=== PATIENT | male | born 1935 | race Caucasian/White ===

== ENCOUNTER 2016-03-30 11:38 | Emergency (ER) | payer OTHER, MEDICARE ==
[~2016-03-30] VITALS: Ht 180.3 cm; Wt 70.3 kg
[~2016-03-30 11:38] MED LIST: CALC-80; CPR250T; CYCL10TA9; DICL100G20; ENLP10T; GBPN300C; MISO200T; MULT-418; POTA99TA7; PSYL0.525; SAW160CA9; TMSL.4C; TOLTA4; TRAM-21 PO; VITA1200
[2016-03-30] MEDS ORDERED: NS IV 1000 ML 1,000 ML IV ONE ×2 (12:35→15:04)
[2016-03-30] MEDS ORDERED: KETOROLAC 30 MG/ML VIAL IVP STA (12:35)
[2016-03-30] MEDS ORDERED: ONDANSETRON 4 MG/2 ML (SDV) Z0FRAN IVP ONE (12:45)
[2016-03-30 12:47] LABS: BASOPHILS % (AUTO) 0 % (0-10); EOSINOPHILS % (AUTO) 0 % (0-10); LYMPHOCYTES # (AUTO) 0.5 X 10^3 (1.0-4.0); LYMPHOCYTES % (AUTO) 7 % (12-44); MEAN CORPUSCULAR HEMOGLOBIN 34 PG (25-34); MEAN CORPUSCULAR HGB CONC 35 G/DL (32-36); MEAN CORPUSCULAR VOLUME 98 FL (80-99); MEAN PLATELET VOLUME 10.1 FL (7.4-10.4); MONOCYTES # (AUTO) 1.3 X 10^3 (0.0-1.0); MONOCYTES % (AUTO) 18 % (0-12); NEUTROPHILS # (AUTO) 5.3 X 10^3 (1.8-7.8); NEUTROPHILS % (AUTO) 75 % (42-75); PLATELET COUNT 225 10^3/uL (130-400); RED BLOOD COUNT 5.17 10^6/uL (4.35-5.85); RED CELL DISTRIBUTION WIDTH 13.8 % (10.0-14.5); WHITE BLOOD COUNT 7.1 10^3/uL (4.3-11.0)
[2016-03-30 13:11] LABS: BAND NEUTROPHILS 23 %; BASOPHILS % (MANUAL) 0 %; EOSINOPHILS % (MANUAL) 0 %; LYMPHOCYTES % (MANUAL) 7 %; NEUTROPHILS % (MANUAL) 57 %
[2016-03-30] MEDS ORDERED: VANCOMYCIN IV ADD-VANTAGE 1,000 MG in SODIUM CHLORIDE (ADD-VANTAGE) 250 ML IV ONE (13:15)
[2016-03-30 13:19] LABS: BILIRUBIN,TOTAL 0.6 MG/DL (0.1-1.0); CALCIUM 8.9 MG/DL (8.5-10.1); CREATININE SERUM 2.93 MG/DL (0.60-1.30); POTASSIUM 4.7 MMOL/L (3.6-5.0); TOTAL PROTEIN 7.3 G/DL (6.4-8.2)
--- NOTE | 2016-03-30 13:37 | Diagnostic Imaging Report ---
INDICATION: Right third finger pain after slamming finger in a truck door two weeks ago. DISCUSSION: AP view of the right hand and two coned-down views of the right third finger were obtained, no comparison. There is diffuse soft tissue swelling of the right third finger, particularly around the PIP joint. Bones are diffusely osteopenic. No acute fracture or dislocation. No radiopaque foreign body. Advanced degenerative changes are noted within the triscaphe region. 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 IMPRESSION: 1. Diffuse soft tissue swelling of the right third finger. No acute fracture identified. Dictated by: Dictated on workstation # [id number]
--- NOTE | 2016-03-30 14:14 | ED General ---
General Chief Complaint: Skin/Wound Problems Stated Complaint: RIGHT MIDDLE FINGER INJURY Nursing Triage Note: PT SENT OVER FROM URGENT CARE WITH C/O WOUND THAT IS NOT HEALING. PT HAS HX OF GANGRENE WITH AMPUTATION OF LEG. 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 Patient reports slamming the finger in a truck door a couple of weeks ago. Was seen at on 03/26/16 and placed on keflex. Patient reports no improvement in symptoms. Continued pain, erythema, and drainage. Timing/Duration: Getting Worse, Other (1-2 wks.) Modifying Factors: worse with Movement Allergies and Home Medications Allergies Uncoded Allergies: SULFA (Allergy, 10/02/10) Home Medications Calcium Carbonate/Vitamin D3 1 Each Tablet (Reported) Ciprofloxacin Hcl 250 Mg Tablet (Reported) Clindamycin HCl 300 Mg Capsule #40 300 MG PO QID Prescribed by: ROHITH WIGGINS on 03/30/16 1630 Cyclobenzaprine Hcl 10 Mg Tablet TID (Reported) Diclofenac Sodium 100 Gm Gel..gm. (Reported) Enalapril Maleate 10 Mg Tab DAILY (Reported) Gabapentin 300 Mg Cap TID (Reported) Misoprostol 200 Mcg Tablet BID (Reported) Multivitamin 1 Each Tab.chew (Reported) Potassium 99 Mg Tablet (Reported) Psyllium Husk 0.52 Gm Capsule (Reported) Saw Townsend Xtr/Zinc Picolin 1 Each Capsule (Reported) Tamsulosin Hcl 0.4 Mg Cap (Reported) Tolterodine Tartrate 4 Mg Cap.sr.24h (Reported) Tramadol Hcl 50 Mg Tablet #30 50 MG PO QID Prescribed by: MANUEL CURTIS on 08/07/09 1123 Tramadol Hcl 50 Mg Tablet #30 50 MG PO QID Prescribed by: MANUEL CURTIS on 10/02/10 1731 Vitamin B Complex/Vit B12 1,200 Mcg/1 Ml Drops (Reported) Constitutional: No chills, No dizziness, No fever, malaise Respiratory: no symptoms reported Cardiovascular: no symptoms reported Gastrointestinal: no symptoms reported Musculoskeletal: see HPI joint pain (rt middle finger.) joint swelling (rt middle finger) Skin: see HPI change in color Psychiatric/Neurological: Denies Numbness, Denies Paresthesia, Denies Tingling , Denies Weakness All Other Systems Reviewed Negative Unless Noted: Yes (Negative excepted noted.) Past Ndixtsg-Yzvsfq-Gokist Hx Patient Social History Alcohol Use: Denies Use Recreational Drug Use: No Smoking Status: Unknown if Ever Smoked Recent Foreign Travel: No Contact w/Someone Who Travel: No Recent Infectious Disease Expo: No Recent Hopitalizations: No Physical Abuse Screen: No Sexual Abuse: No Seasonal Allergies Seasonal Allergies: No Surgeries HX Surgeries: Yes Surgeries: Amputation Respiratory Hx Respiratory Disorders: No Cardiovascular Hx Cardiac Disorders: Yes Cardiac Disorders: Hypertension Neurological Hx Neurological Disorders: No Genitourinary Hx Genitourinary Disorders: Yes Genitourinary Disorders: UTI-Chronic Gastrointestinal Hx Gastrointestinal Disorders: Yes (CELIAC DISEASE) Musculoskeletal Hx Musculoskeletal Disorders: Yes Musculoskeletal Disorders: Amputee Endocrine Hx Endocrine Disorders: No HEENT HX ENT Disorders: No Cancer Hx Cancer: No Psychosocial Hx Psychiatric Problems: No Reviewed Nursing Assessment Reviewed/Agree w Nursing PMH: Yes Family Medical History Significant Family History: No Pertinent Family Hx Physical Exam Vital Signs Capillary Refill : Less Than 3 Seconds General Appearance: No Apparent Distress Chronically ill Thin Respiratory: Lungs Clear Normal Breath Sounds No Respiratory Distress Cardiovascular: No Murmur Normal Peripheral Pulses Tachycardia Extremity: Normal Capillary Refill Swelling (rt middle finger) Other (erythema , warmth and swelling of the rt middle finger w/o active bleeding. Minimal serous drainage noted. ) Neurologic/Psychiatric: Alert Oriented x3 No Motor/Sensory Deficits Normal Mood/Affect Skin: Warm/DryNo Cool, No Cyanosis, ErythemaNo Mottled, No Petechia, Other ( erythema, warmth and swelling of the rt middle finger w/o active bleeding. Minimal serous drainage noted. ) Progress/Results/Core Measures Results/Orders Lab Results My Orders Medications Given in ED Vital Signs/I&O Blood Pressure Mean: 97 Departure Communication Progress Notes 1500 Patient case discussed with Dr. Curtis including history, VS, labs, diagnostic findings, and exam. Dr. Curtis feels that the elevated Creat/BUN is related to dehydration and the elevated lactic acid is secondary to the elevated renal function. Dr. Curtis recommends 1 additional liter of NS infused followed by [facility] to home with oral antibiotics. Recommends follow-up as an outpatient with his primary care physician for repeat labs/renal function testing. 1505 all laboratory findings, diagnostic study findings, and recommendations by Dr. Manuel Crutis discussed with the patient. Patient voices understanding and agrees with the treatment plan. Patient case discussed with Dr. Velazquez, he agrees with the plan of care. Impression Impression: Primary Impression: Cellulitis of finger of right hand Additional Impressions: Acute renal insufficiency Drug-induced nausea and vomiting Disposition: HOME, SELF-CARE Condition: Improved Departure-Patient Inst. Decision time for Depature: 15:23 Referrals: NO,LOCAL PHYSICIAN (PCP/Family) Primary Care Physician Patient Instructions: Cellulitis (Skin Infection), Adult (DC), Renal Function Panel Add. Discharge Instructions: All discharge instructions reviewed with patient and/or family. Voiced understanding. Medications as instructed. STOP THE KEFLEX IMMEDIATELY. Continue usual home medications. Tylenol gfdv-sdc-fcaqeis as directed for pain. No ibuprofen or Aleve. Shower with antibacterial soap. Follow-up with Dr. barfield Tuesday as previously scheduled. Repeat labs as an outpatient or Tuesday. Follow-up with Dr. barfield for these results. Return to the emergency department for fever, increased drainage, increased redness, vomiting, dizziness , diarrhea, or any other concerns. Scripts Clindamycin HCl (Cleocin HCl)300 Mg [id number] Mg PO QID #40 CAP Ref 0 Prov:ROHITH WIGGINS 03/30/16 ROHITH WIGGINS Mar 30, 2016 14:14 Rate 21 Glucose Level 167 H 70-105 MG/DL Hematocrit 51 40-54 % Hemoglobin 17.5 13.3-17.7 G/DL Lactic Acid Level 2.1 *H 1.1 0.5-2.0 MMOL/L Lymphocytes # (Auto) 0.5 L 1.0-4.0 X 10^3 Lymphocytes % (Manual) 7 % Lymphocytes (%) (Auto) 7 L 12-44 % Mean Corpuscular Hemoglobin 34 25-34 PG Mean Corpuscular Hemoglobin Concent 35 32-36 G/DL Mean Corpuscular Volume 98 80-99 FL Mean Platelet Volume 10.1 7.4-10.4 FL Monocytes # (Auto) 1.3 H 0.0-1.0 X 10^3 Monocytes % (Manual) 13 % Monocytes (%) (Auto) 18 H 0-12 % Neutrophils # (Auto) 5.3 1.8-7.8 X 10^3 Neutrophils % (Manual) 57 % Neutrophils (%) (Auto) 75 42-75 % Platelet Count 225 130-400 10^3/uL Potassium Level 4.7 3.6-5.0 MMOL/L Red Blood Count 5.17 4.35-5.85 10^6/uL Red Cell Distribution Width 13.8 10.0-14.5 % Sodium Level 141 135-145 MMOL/L Total Bilirubin 0.6 0.1-1.0 MG/DL Total Protein 7.3 6.4-8.2 G/DL White Blood Count 7.1 4.3-11.0 10^3/uL My Orders Orders-ROHITH WIGGINS Saline Lock/Iv-Start (03/30/16 12:35) Cbc With Automated Diff (03/30/16 12:35) Comprehensive Metabolic Panel (03/30/16 12:35) Lactic Acid Analyzer (03/30/16 12:35) Blood Culture (03/30/16 12:35) Wound Culture (03/30/16 12:35) Ketorolac Injection (Toradol Injection) (03/30/16 12:35) Ondansetron Injection (Zofran Injectio (03/30/16 12:45) Saline Lock/Iv-Start (03/30/16 12:35) Ns Iv 1000 Ml (Sodium Chloride 0.9%) (03/30/16 12:35) Finger(S) (03/30/16 12:35) Manual Differential (03/30/16 12:33) Vancomycin Iv Add-[place]inburgh (Vancomycin Iv (03/30/16 13:15) Ns Iv 1000 Ml (Sodium Chloride 0.9%) (03/30/16 15:04) Medications Given in ED Current Medications Medications Dose Ordered Sig/Shazia Route Start Time Stop Time Status Last Admin Dose Admin Ondansetron HCl 4 mg 4 mg ONCE ONCE IVP 03/30/16 12:45 03/30/16 12:46 DC 03/30/16 13:06 4 MG Sodium Chloride 1,000 ml @ 0 mls/hr Q0M ONCE IV 03/30/16 12:35 03/30/16 12:37 DC 03/30/16 13:06 0 MLS/HR Sodium Chloride 1,000 ml @ 0 mls/hr Q0M ONCE IV 03/30/16 15:04 03/30/16 15:05 DC 03/30/16 15:15 0 MLS/HR Vancomycin HCl 1000 mg/Sodium Chloride 250 ml @ 250 mls/hr ONCE ONCE IV 03/30/16 13:15 03/30/16 14:14 DC 03/30/16 13:47 250 MLS/HR Vital Signs/I&O Vital Sign - Last 12Hours 03/30/16 12:22 Temp 99.0 Pulse 112 Resp 20 B/P 122/85 Pulse Ox 97 O2 Delivery Room Air Blood Pressure Mean: 97 Departure Communication Progress Notes 1500 Patient case discussed with Dr. Curtis including history, VS, labs, and exam. Dr. Curtis recommends 1 additional liter of NS followed by [facility] to home with oral antibiotics. Impression Impression: Primary Impression: Cellulitis of finger of right hand Additional Impressions: Acute renal insufficiency Drug-induced nausea and vomiting Disposition: HOME, SELF-CARE Condition: Improved Departure-Patient Inst. Decision time for Depature: 15:23 Referrals: NO,LOCAL PHYSICIAN (PCP/Family) Primary Care Physician Patient Instructions: Cellulitis (Skin Infection), Adult (DC), Renal Function Panel Add. Discharge Instructions: All discharge instructions reviewed with patient and/or family. Voiced understanding. Medications as instructed. STOP THE KEFLEX IMMEDIATELY. Continue usual home medications. Tylenol xjwa-ite-aamhubn as directed for pain. No ibuprofen or Aleve. Shower with antibacterial soap. Follow-up with Dr. barfield Tuesday as previously scheduled. Repeat labs as an outpatient or Tuesday. Follow-up with Dr. barfield for these results. Return to the emergency department for fever, increased drainage, increased redness, vomiting, dizziness , diarrhea, or any other concerns. Scripts Clindamycin HCl (Cleocin HCl)300 Mg [id number] Mg PO QID #40 CAP Ref 0 Prov:ROHITH WIGGINS 03/30/16 ROHITH WIGGINS Mar 30, 2016 14:14
[2016-03-30] MEDS ORDERED: CLIN300C3 PO ×2 (15:30→16:30)
[2016-03-30 16:23] VITALS: BP 130/76
== END 2016-03-30 16:23 | disposition home or self-care (01) ==
LOC: EDUNIT# 11:38 → ER 11:44
DX: L03.011 Cellulitis of right finger (principal); R11.2 Nausea with vomiting, unspecified; T36.1X5A Adverse effect of cephalosporins and other beta-lactam antibiotics, initial encounter; N28.9 Disorder of kidney and ureter, unspecified; I10 Essential (primary) hypertension; Z79.899 Other long term (current) drug therapy
CPT/HCPCS: 36415; 73140; 80053; 83605; 85007; 85027; 87040; 87070; 87205; 96361; 96365; 96375

== ENCOUNTER 2017-03-21 08:35 | Inpatient (IN) | payer MEDICARE, OTHER ==
[~2017-03-21] VITALS: Ht 175.3 cm; Wt 64.0 kg
[~2017-03-21 08:35] MED LIST changes: +CLIN300C3 PO
--- OUTSIDE RECORDS SUMMARY | 2017-03-21 08:39 | XMS REPORT ---
Author Author BIGG GAYLE [facility] Address [address] [place] [address] Care Team Providers Care Frozen Food Department Manager Name Role Phone BIGG GAYLE Unavailable PROBLEMS Type Condition ICD9-CM Code [id number] Code Onset Dates Condition Status SNOMED Code Problem Cognitive complaints R41.9 Active 659132474 Problem Dental examination Z01.20 Active 151685829 ALLERGIES Unknown Allergies SOCIAL HISTORY No smoking Hx information available PLAN OF CARE VITAL SIGNS MEDICATIONS Unknown Medications RESULTS No Results PROCEDURES No Known procedures IMMUNIZATIONS No Known Immunizations
--- OUTSIDE RECORDS SUMMARY | 2017-03-21 08:39 | XMS REPORT ---
Author Author BIGG GAYLE Organization [facility] Address [address] [place] [address] Care Team Providers Care Statuary Painter Name Role Phone BIGG GAYLE Unavailable PROBLEMS Type Condition ICD9-CM Code [id number] Code Onset Dates Condition Status SNOMED Code Problem Cognitive complaints R41.9 Active 277884934 Problem Dental examination Z01.20 Active [id number] ALLERGIES Unknown Allergies SOCIAL HISTORY No smoking Hx information available PLAN OF CARE Activity Details Follow Up next available Reason:review cognitive test results VITAL SIGNS MEDICATIONS Unknown Medications RESULTS No Results PROCEDURES Procedure Date Ordered Related Diagnosis Body Site 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
--- OUTSIDE RECORDS SUMMARY | 2017-03-21 08:39 | XMS REPORT ---
Author Author BIGG GAYLE [facility] Address [address] [place] [address] Care Team Providers Care Day Care Assistant Name Role Phone BIGG GAYLE Unavailable PROBLEMS Type Condition ICD9-CM Code [id number] Code Onset Dates Condition Status SNOMED Code Problem Cognitive complaints R41.9 Active 142156117 Problem Dental examination Z01.20 Active 930296625 ALLERGIES Unknown Allergies SOCIAL HISTORY No smoking Hx information available PLAN OF CARE Activity Details Follow Up after DRS-2 administration Reason: VITAL SIGNS MEDICATIONS Unknown Medications RESULTS No Results PROCEDURES Procedure Date Ordered Related Diagnosis Body Site [facility] VISIT MENTAL HEALTH NEW PT Mar 01, 2016 Psychotherapy, patient &/family, 30 minutes, new patient Mar 01, 2016 IMMUNIZATIONS No Known Immunizations
--- OUTSIDE RECORDS SUMMARY | 2017-03-21 08:39 | XMS REPORT ---
Author Author BIGG GAYLE [facility] Address [address] [place] [address] Care Team Providers Care Hogshead Roller Name Role Phone BIGG GAYLE Unavailable PROBLEMS Type Condition ICD9-CM Code TPP63-SO Code Onset Dates Condition Status SNOMED Code Problem Cognitive complaints R41.9 Active 821258979 Problem Dental examination Z01.20 Active 904516821 ALLERGIES Unknown Allergies SOCIAL HISTORY No smoking Hx information available PLAN OF CARE VITAL SIGNS MEDICATIONS Unknown Medications RESULTS No Results PROCEDURES Procedure Date Ordered Related Diagnosis Body Site [facility] VISIT MENTAL HEALTH ESTAB PT Mar 11, 2016 Psychotherapy, patient &/family, 30 minutes, established patient Mar 11, 2016 IMMUNIZATIONS No Known Immunizations
--- OUTSIDE RECORDS SUMMARY | 2017-03-21 08:40 | XMS REPORT ---
Author Author STACEY MCFADDEN Organization [facility] Address [address] [place] [address] Care Team Providers Care Grinding Wheel Inspector Name Role Phone STACEY MCFADDEN Unavailable PROBLEMS Type Condition ICD9-CM Code XEY05-OS Code Onset Dates Condition Status SNOMED Code Problem Cognitive complaints R41.9 Active 531002879 Problem Dental examination Z01.20 Active 947021035 ALLERGIES Substance Reaction Event Type Date Status Sulfacetamide Sodium Unknown Drug Allergy Feb, Active SOCIAL HISTORY No smoking Hx information available PLAN OF CARE Activity Details Follow Up 6 Months Reason:recall VITAL SIGNS Blood pressure systolic 186 mmHg 2016-03-04 Blood pressure diastolic 102 mmHg 2016-03-04 MEDICATIONS Medication Instructions Dosage Frequency Start Date End Date Duration Status Tamsulosin HCl 0.4 MG Active Systane Nighttime - Active Aspir-81 81 MG Orally Once a day 1 tablet 24h Active Enalapril Maleate 10 MG Orally Once a day 1 tablet 24h Active Misoprostol 200 MCG Orally Four times a day 1 tablet with food 6h Active Diclofenac Sodium 75 MG Orally Twice a day 1 tablet with food or milk 12h Active Vit E-Vit C-Beta Carotene [phone] Orally Once a day 1 tablet 24h Active B-12 2500 MCG Active potassium 1 tab Active Restasis 0.05 % Ophthalmic Twice a day 1 null into affected eye 12h Active Multi Complete - Active Tolterodine Tartrate 2 MG Orally Twice a day 1 tablet 12h Active Mens Prostate Health Formula Active RESULTS No Results PROCEDURES Procedure Date Ordered Related Diagnosis Body Site INTRAORL-PERIAPICAL 1 FILM [id number] Mar 04, 2016 INTRAORL-PERIAPICAL EA ADD FILM Mar 04, 2016 IMMUNIZATIONS No Known Immunizations
[2017-03-21] MEDS ORDERED: LACTATED RINGERS 1,000 ML IV ONE (08:44)
[2017-03-21] MEDS ORDERED: ONDANSETRON 4 MG/2 ML (SDV) Z0FRAN IVP ONE (08:45)
[2017-03-21] MEDS ORDERED: fentaNYL INJECTION 100 MCG/2 ML AMP IVP ONE (08:45)
--- NOTE | 2017-03-21 08:54 | ED Abdominal Pain ---
General Chief Complaint: Abdominal/GI Problems Stated Complaint: NAUSEA/CONSTIPATION Source of Information: Patient, Other Exam Limitations: No Limitations History of Present Illness Time Seen By Provider: 08:43 Initial Comments Patient resists ER by EMS with a chief complaint of abdominal pain that started Tuesday evening, 3 days ago. His last bowel movement was Tuesday morning, 3 days ago. He has had poor oral intake Secondary to nausea and vomiting without bloody emesis. He denies shortness of breath or chest pain or sweats or chills or fever. He denies dysuria, Discharge or trauma. He says he's had multiple colonoscopies in the past and his last one did not find any polyps but his had polyps in the past no mention of diverticulosis on the other. He says his entire belly hurts but it starts up in the epigastric region and radiates all over. It does not radiate to the back. There is no sensation of tearing. The pain is constant and worse with movement or direct palpation of his abdomen. EMS also reports his blood pressure is up around 180 systolic but the patient has not taken his blood pressure medicines morning. Patient endorses to ventral hernia operations in the past with mesh. Allergies and Home Medications Allergies Uncoded Allergies: SULFA (Allergy, 10/02/10) Home Medications Calcium Carbonate/Vitamin D3 1 Each Tablet, (Reported) Ciprofloxacin Hcl 250 Mg Tablet, (Reported) Clindamycin HCl 300 Mg Capsule, 300 MG PO QID, #40 Ref 0 Prescribed by: ROHITH WIGGINS on 03/30/16 1630 Cyclobenzaprine Hcl 10 Mg Tablet, TID, (Reported) Diclofenac Sodium 100 Gm Gel..gm., (Reported) Enalapril Maleate 10 Mg Tab, DAILY, (Reported) Gabapentin 300 Mg Cap, TID, (Reported) Misoprostol 200 Mcg Tablet, BID, (Reported) Multivitamin 1 Each Tab.chew, (Reported) Potassium 99 Mg Tablet, (Reported) Psyllium Husk 0.52 Gm Capsule, (Reported) Saw Delta Xtr/Zinc Picolin 1 Each Capsule, (Reported) Tamsulosin Hcl 0.4 Mg Cap, (Reported) Tolterodine Tartrate 4 Mg Cap.sr.24h, (Reported) Tramadol Hcl 50 Mg Tablet, 50 MG PO QID, #30 Ref 0 Prescribed by: MANUEL CURTIS on 08/07/09 1123 Tramadol Hcl 50 Mg Tablet, 50 MG PO QID, #30 Ref 0 Prescribed by: MANUEL CURTIS on 10/02/10 1731 Vitamin B Complex/Vit B12 1,200 Mcg/1 Ml Drops, (Reported) Review of Systems Constitutional: No chills, No diaphoresis, No fever, No malaise EENTM: No Blurred Vision, No Double Vision, Nose Congestion Respiratory: Denies Cough, Denies Shortness of Air Cardiovascular: Denies Chest Pain, Denies Edema, Denies Palpitations, Denies Syncope Gastrointestinal: See HPI, Denies Abdomen Distended, Abdominal Pain, Constipated, Denies Diarrhea, Nausea, Poor Fluid Intake, Vomiting Genitourinary: Denies Burning, Denies Discharge Musculoskeletal: No back pain, No joint pain Skin: No pruritus, No rash Psychiatric/Neurological: Denies Headache, Denies Numbness Past Ozsjxua-Pdlmhj-Cdgche Hx Patient Social History Alcohol Use: Denies Use Recreational Drug Use: No Smoking Status: Never a Smoker Recent Hopitalizations: No Seasonal Allergies Seasonal Allergies: No Surgeries History of Surgeries: Yes Surgeries: Amputation Respiratory History of Respiratory Disorde: No Cardiovascular History of Cardiac Disorders: Yes Cardiac Disorders: Hypertension Neurological History of Neurological Disord: No Genitourinary Genitourinary Disorders: UTI-Chronic Gastrointestinal History of Gastrointestinal Di: Yes (CELIAC DISEASE) Musculoskeletal History of Musculoskeletal Dis: Yes Musculoskeletal Disorders: Amputee Endocrine History of Endocrine Disorders: No Cancer History of Cancer: No Psychosocial History of Psychiatric Problem: No Family Medical History Significant Family History: No Pertinent Family Hx Physical Exam Vital Signs VS - Last 72 Hours, by Label 03/21/17 08:37 Temp 98.6 Pulse 100 Resp 18 B/P (MAP) 192/100 (130) Pulse Ox 96 O2 Delivery Room Air Capillary Refill : General Appearance: mild distress, thin HEENT: PERRL/EOMI, normal ENT inspection, pharynx normal (oral mucosa is dry) Neck: supple, normal inspection Respiratory: chest non-tender, lungs clear, normal breath sounds, no respiratory distress, no accessory muscle use Cardiovascular: normal peripheral pulses, regular rate, rhythm, no edema, no JVD Peripheral Pulses: 1+ Dorsalis Pedis (R), 1+ Left Dors-Pedis (L) Gastrointestinal: normal bowel sounds, no pulsatile mass, No distended, guarding, rebound, tenderness (diffusely times all 4 quadrants), No mass Extremities: non-tender, normal inspection, no pedal edema, normal capillary refill Neurologic/Psychiatric: alert, normal mood/affect, oriented x 3 Skin: normal color, warm/dry Focused Exam Evaluation Lactate Level Laboratory Tests 03/21/17 08:46: Lactic Acid Level 1.76 Lactic Acid Level Laboratory Tests Test 03/21/17 08:46 Lactic Acid Level 1.76 MMOL/L (0.50-2.00) Progress/Results/Core Measures Results/Orders Lab Results Laboratory Tests Test 03/21/17 08:46 Range/Units White Blood Count 10.5 4.3-11.0 10^3/uL Red Blood Count 4.75 4.35-5.85 10^6/uL Hemoglobin 15.2 13.3-17.7 G/DL Hematocrit 47 40-54 % Mean Corpuscular Volume 97 80-99 FL Mean Corpuscular Hemoglobin 32 25-34 PG Mean Corpuscular Hemoglobin Concent 33 32-36 G/DL Red Cell Distribution Width 13.5 10.0-14.5 % Platelet Count 306 130-400 10^3/uL Mean Platelet Volume 8.6 7.4-10.4 FL Neutrophils (%) (Auto) 78 H 42-75 % Lymphocytes (%) (Auto) 12 12-44 % Monocytes (%) (Auto) 10 0-12 % Eosinophils (%) (Auto) 0 0-10 % Basophils (%) (Auto) 0 0-10 % Neutrophils # (Auto) 8.2 H 1.8-7.8 X 10^3 Lymphocytes # (Auto) 1.3 1.0-4.0 X 10^3 Monocytes # (Auto) 1.1 H 0.0-1.0 X 10^3 Eosinophils # (Auto) 0.0 0.0-0.3 10^3/uL Basophils # (Auto) 0.0 0.0-0.1 10^3/uL Sodium Level 139 135-145 MMOL/L Potassium Level 4.7 3.6-5.0 MMOL/L Chloride Level 99 98-107 MMOL/L Carbon Dioxide Level 26 21-32 MMOL/L Anion Gap 14 5-14 MMOL/L Blood Urea Nitrogen 45 H 7-18 MG/DL Creatinine 1.91 H 0.60-1.30 MG/DL Estimat Glomerular Filtration Rate 34 BUN/Creatinine Ratio 24 Glucose Level 168 H 70-105 MG/DL Lactic Acid Level 1.76 0.50-2.00 MMOL/L Calcium Level 9.8 8.5-10.1 MG/DL Magnesium Level 2.0 1.8-2.4 MG/DL Total Bilirubin 0.8 0.1-1.0 MG/DL Aspartate Amino Transf (AST/SGOT) 18 5-34 U/L Alanine Aminotransferase (ALT/SGPT) 17 0-55 U/L Alkaline Phosphatase 112 40-136 U/L C-Reactive Protein High Sensitivity 2.64 H 0.00-0.50 MG/DL Total Protein 7.3 6.4-8.2 GM/DL Albumin 3.7 3.2-4.5 GM/DL Lipase 53 8-78 U/L My Orders Orders - NYDIA DOSS Cbc With Automated Diff (03/21/17 08:44) Comprehensive Metabolic Panel (03/21/17 08:44) Hs C Reactive Protein (03/21/17 08:44) Lactic Acid Analyzer (03/21/17 08:44) Lipase (03/21/17 08:44) Magnesium (03/21/17 08:44) Ua Culture If Indicated (03/21/17 08:44) Saline Lock/Iv-Start (03/21/17 08:44) Lactated Ringers (Lr 1000 Ml Iv Solution (03/21/17 08:44) Fentanyl Injection (Sublimaze Injection (03/21/17 08:45) Ondansetron Injection (Zofran Injectio (03/21/17 08:45) Ct Abdomen/Pelvis Wo (03/21/17 08:44) Medications Given in ED Current Medications Medications Dose Ordered Sig/Shazia Route Start Time Stop Time Status Last Admin Dose Admin Fentanyl Citrate 50 mcg ONCE ONCE IVP 03/21/17 08:45 03/21/17 08:49 DC 03/21/17 09:04 50 MCG Lactated Ringer's 1,000 ml @ 0 mls/hr Q0M ONCE IV 03/21/17 08:44 03/21/17 08:49 DC 03/21/17 09:05 1,000 MLS/HR Ondansetron HCl 4 mg ONCE ONCE IVP 03/21/17 08:45 03/21/17 08:49 DC 03/21/17 09:03 4 MG Vital Signs/I&O Vital Sign - Last 12Hours 03/21/17 08:37 Temp 98.6 Pulse 100 Resp 18 B/P (MAP) 192/100 (130) Pulse Ox 96 O2 Delivery Room Air Progress Note #1: Time: 08:53 Progress Note Acute moderate to severe abdominal pain with a tender rigid abdomen. We'll give him pain medicine, fluids and Zofran and then get him to the scanner. Differential includes things such as a small bowel obstruction, ischemic mesentery, spontaneous bacterial peritonitis, pancreatitis, diverticulitis etc. Progress Note #2: Time: 11:25 Progress Note Patient's pain and nausea are now under control after single dose of Zofran and fentanyl. He has a small bowel obstruction on CT we'll discuss this with general surgery for admission. He probably does not need an NG tube at this time as he is asymptomatic. Diagnostic Imaging Diagonstic Imaging: CT (with contrast) Plain Films/CT/US/NM/MRI: abdomen, pelvis Comments Air-fluid levels in the bowels with dilated, distended proximal and decompressed distal bowels. No exact transition point seen probably in the ileum. Compatible with a small bowel obstruction. NAME: JOSE SARMIENTO [facility] REC#: [id number] PT STATUS: REG ER : 1935 PHYSICIAN: NYDIA DOSS MD ADMIT DATE: 03/21/17/ER Draft Date of Exam:03/21/17 CT ABDOMEN/PELVIS WO PROCEDURE: CT abdomen and pelvis without contrast. TECHNIQUE: Multiple contiguous axial images were obtained through the abdomen and pelvis without the use of intravenous contrast. INDICATION: Constipation, nausea and vomiting. COMPARISON: Comparison made with prior examination 08/07/2009. FINDINGS: The heart size is normal. The lung bases are clear. The liver is normal in size without focal lesions. Gallbladder is unremarkable. There is no biliary ductal dilatation. Spleen is normal. The pancreas and adrenal glands are grossly unremarkable. Kidneys are normal. There are markedly dilated loops of both fluid-filled and air-filled small bowel with air-fluid levels. Findings are compatible with small bowel obstruction. Bladder is grossly unremarkable. There is a small amount of free pelvic fluid. There are degenerative changes in the spine. There is moderate atherosclerotic calcification of the aorta which is nonaneurysmal. IMPRESSION: 1. Findings compatible with small bowel obstruction likely with a transition point in the mid to distal ileum. 2. Small amount of ascites. 3. Moderate atherosclerotic calcification of the aorta. 4. Degenerative changes in the spine. Dictated on workstation # [id number] Dict: 03/21/17 1110 Trans: 03/21/17 1121 [id number] Interpreted by: MYNOR RUBIO MD Electronically signed by: Reviewed: Reviewed by Me, Discussed w/Radiologist Departure Communication (Admissions) Time/Spoke to Admitting Phy: 11:34 Communication Discussed the case with Dr. Mora and she will see the patient. Time/Spoke to Consulting Phy: 11:31 Communication/Consulting Tuan discussed case lab imaging and findings and he is okay to consult on the patient. He is okay with no NG tube at this time. Impression Impression: Primary Impression: Small bowel obstruction Disposition: ADMITTED INPATIENT Condition: Stable Admissions Decision to Admit Reason: Admit from ER (General) Decision to Admit/Date: Mar 21, 2017 Time/Decision to Admit Time: 11:26 Departure-Patient Inst. Referrals: NO,LOCAL PHYSICIAN (PCP/Family) Primary Care Physician Copy Copies To 1: DONNA MARTINEZ MD Copies To 2: ANA MORA MD; CHRISTINE RYDER MD, TITUS J Mar 21, 2017 08:54
[2017-03-21 08:56] LABS: BASOPHILS % (AUTO) 0 % (0-10); EOSINOPHILS % (AUTO) 0 % (0-10); HEMOGLOBIN 15.2 G/DL (13.3-17.7); LYMPHOCYTES # (AUTO) 1.3 X 10^3 (1.0-4.0); LYMPHOCYTES % (AUTO) 12 % (12-44); MEAN CORPUSCULAR HEMOGLOBIN 32 PG (25-34); MEAN PLATELET VOLUME 8.6 FL (7.4-10.4); MONOCYTES # (AUTO) 1.1 X 10^3 (0.0-1.0); MONOCYTES % (AUTO) 10 % (0-12); NEUTROPHILS # (AUTO) 8.2 X 10^3 (1.8-7.8); NEUTROPHILS % (AUTO) 78 % (42-75); PLATELET COUNT 306 10^3/uL (130-400); RED BLOOD COUNT 4.75 10^6/uL (4.35-5.85); RED CELL DISTRIBUTION WIDTH 13.5 % (10.0-14.5); WHITE BLOOD COUNT 10.5 10^3/uL (4.3-11.0)
[2017-03-21 09:22] LABS: ALBUMIN 3.7 GM/DL (3.2-4.5); BILIRUBIN,TOTAL 0.8 MG/DL (0.1-1.0); CALCIUM 9.8 MG/DL (8.5-10.1); CREATININE SERUM 1.91 MG/DL (0.60-1.30); POTASSIUM 4.7 MMOL/L (3.6-5.0); TOTAL PROTEIN 7.3 GM/DL (6.4-8.2)
[2017-03-21 10:32] LABS: HEMATOCRIT 47 % (40-54); MEAN CORPUSCULAR HGB CONC 33 G/DL (32-36); MEAN CORPUSCULAR VOLUME 97 FL (80-99)
--- NOTE | 2017-03-21 11:21 | Diagnostic Imaging Report ---
PROCEDURE: CT abdomen and pelvis without contrast. TECHNIQUE: Multiple contiguous axial images were obtained through the abdomen and pelvis without the use of intravenous contrast. INDICATION: Constipation, nausea and vomiting. COMPARISON: Comparison made with prior examination 08/07/2009. FINDINGS: The heart size is normal. The lung bases are clear. The liver is normal in size without focal lesions. Gallbladder is unremarkable. There is no biliary ductal dilatation. Spleen is normal. The pancreas and adrenal glands are grossly unremarkable. Kidneys are normal. There are markedly dilated loops of both fluid-filled and air-filled small bowel with air-fluid levels. Findings are compatible with small bowel obstruction. Bladder is grossly unremarkable. There is a small amount of free pelvic fluid. There are degenerative changes in the spine. There is moderate atherosclerotic calcification of the aorta which is nonaneurysmal. IMPRESSION: 1. Findings compatible with small bowel obstruction likely with a transition point in the mid to distal ileum. 2. Small amount of ascites. 3. Moderate atherosclerotic calcification of the aorta. 4. Degenerative changes in the spine. Dictated by: Dictated on workstation # [id number]
[2017-03-21] MEDS ORDERED: NS IV 1000 ML 1,000 ML ONE (12:23)
[2017-03-21 12:25] VITALS: BP 156/83
[2017-03-21] MEDS: NS IV 1000 ML 1,000 ML IV SCH ×2 (12:42→19:20)
[2017-03-21] MEDS ORDERED: TOLT2TAB5 PO (13:20)
[2017-03-21] MEDS ORDERED: TAMS0.4C2 PO (13:20)
[2017-03-21] MEDS ORDERED: CYCL1DRO OU (13:20)
[2017-03-21] MEDS ORDERED: ENALAPRILAT 2.5 MG/2 ML (VASOTEC) VIAL IV PRN (13:30)
[2017-03-21] MEDS ORDERED: MISO200T4 PO (13:44)
[2017-03-21] MEDS ORDERED: SAW450CA7 PO (13:44)
[2017-03-21] MEDS ORDERED: MULT1TAB80 PO (13:44)
[2017-03-21] MEDS ORDERED: ASPI-983 PO (13:44)
[2017-03-21] MEDS ORDERED: POTA99TA21 PO (13:44)
[2017-03-21] MEDS ORDERED: POLY17PO6 PO (13:44)
[2017-03-21] MEDS ORDERED: MINE3.5O4 OU ×2 (13:44)
[2017-03-21] MEDS ORDERED: CYAN25003 SL (13:44)
[2017-03-21] MEDS ORDERED: DICL75TA2 PO (13:44)
[2017-03-21] MEDS ORDERED: CARB10DR2 OU (13:44)
[2017-03-21] MEDS ORDERED: ENAL10TA PO (13:44)
[2017-03-21] MEDS ORDERED: MULT-35 PO (13:44)
[2017-03-21] MEDS: fentaNYL INJECTION 100 MCG/2 ML AMP IV PRN ×2 (14:34→16:59)
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
--- NOTE | 2017-03-21 14:52 | Consultation ---
History of Present Illness History of Present Illness Patient Consulted On(beau/time) 03/21/17 14:45 Date Seen by Provider: Mar 21, 2017 Time Seen by Provider: 13:05 Reason for Visit: colicky central abdominal pain over a 4 day period History of Present Illness Insidious onset of central abdominal, colicky pain followed by obstipation over a four-day period. Evaluation in the emergency room is indicated EF distal small bowel obstruction. Allergies and Home Medications Allergies Coded Allergies: cephalexin (Verified Allergy, Severe, NAUSEA/DIARRHEA, 03/21/17) clindamycin (Verified Allergy, Severe, NAUSEA/DIARRHEA, 03/21/17) Uncoded Allergies: SULFA (Allergy, Severe, 03/21/17) Home Medications Aspirin 81 Mg Tablet.dr, 81 MG PO DAILY, (Reported) Carboxymethylcellulos/Glycerin 10 Ml Drops.gel, 1 DROP OU BID PRN for DRY EYES, (Reported) Cyanocobalamin (Vitamin B-12) 2,500 Mcg Tab.subl, 2,500 MCG SL DAILY, (Reported) Cyclosporine 1 Each Droperette, 1 DROP OU BID, (Reported) Diclofenac Sodium 75 Mg Tablet.dr, 75 MG PO DAILY, (Reported) Enalapril Maleate 10 Mg Tablet, 20 MG PO DAILY, (Reported) LAST FILLED #180 08-11-17 TAKES 2 (10MG) TABLETS Mineral Oil/Petrolatum,White 3.5 Gm Oint...g., OU HS, (Reported) Misoprostol 200 Mcg Tablet, 100 MCG PO DAILY, (Reported) TAKES 1/2 (200MCG) TABLET Multivitamin 1 Each Tablet, 1 TAB PO DAILY, (Reported) Polyethylene Glycol 3350 17 Gm Powd.pack, 17 GM PO DAILY PRN for CONSTIPATION- 2ND LINE, (Reported) Potassium Gluconate 99 Mg Tablet, 99 MG PO DAILY PRN for CRAMPS, (Reported) Saw [place] Fruit 450 Mg Capsule, 450 MG PO DAILY, (Reported) Tamsulosin HCl 0.4 Mg Cap.er.24h, 0.4 MG PO 1730, (Reported) LAST FILLED #30 17 Tolterodine Tartrate 2 Mg Tablet, 2 MG PO DAILY, (Reported) Vit A,C & E/Lutein/Minerals 1 Each Tablet, 1 TAB PO DAILY, (Reported) Past Xaqxoce-Jjmsqn-Kbqpfg Hx Patient Social History Alcohol Use: Denies Use Recreational Drug Use: No Smoking Status: Never a Smoker Recent Foreign Travel: No Contact w/Someone Who Travel: No Recent Infectious Disease Expo: No Recent Hopitalizations: No Seasonal Allergies Seasonal Allergies: No Surgeries History of Surgeries: Yes Surgeries: Amputation Respiratory History of Respiratory Disorde: Yes Respiratory Disorders: Pneumonia Cardiovascular History of Cardiac Disorders: Yes Cardiac Disorders: Hypertension Neurological History of Neurological Disord: No Genitourinary Genitourinary Disorders: UTI-Chronic Gastrointestinal History of Gastrointestinal Di: Yes (CELIAC DISEASE) Gastrointestinal Disorders: Chronic Constipation, Polyps Musculoskeletal History of Musculoskeletal Dis: Yes Musculoskeletal Disorders: Amputee, Arthritis Endocrine History of Endocrine Disorders: No HEENT History of HEENT Disorders: Yes Loss of Vision: Denies Hearing Impairment: Denies Cancer History of Cancer: No Psychosocial History of Psychiatric Problem: No Blood Transfusions History of Blood Disorders: No Adverse Reaction to a Blood Tr: No Family Medical History Significant Family History: No Pertinent Family Hx Review of Systems-General Constitutional: no symptoms reported Respiratory: no symptoms reported Cardiovascular: no symptoms reported Gastrointestinal: see HPI Genitourinary: no symptoms reported Musculoskeletal: no symptoms reported Skin: no symptoms reported Psychiatric/Neurological: No Symptoms Reported Physical Exam-General Problems Physical Exam Vital Signs Vital Sign - Last 12Hours 03/21/17 08:37 Temp 98.6 Pulse 100 Resp 18 B/P (MAP) 192/100 (130) Pulse Ox 96 O2 Delivery Room Air Capillary Refill : Less Than 3 Seconds General Appearance: mild distress HEENT: normal ENT inspection Neck: normal inspection Respiratory: lungs clear Cardiovascular: regular rate, rhythm Gastrointestinal: soft, distended, other Rectal: deferred Back: normal inspection Neurologic/Psychiatric: alert, oriented x 3 Skin: warm/dry Comments Abdomen slightly distended with minimal tenderness. No obvious external hernia. No recurrence of inguinal hernia. Evidence of left below the knee amputation with prosthetic in place. Assessment/Plan Assessment/Plan Admission Diagnosis/Plan Gentleman with features of small bowel obstruction. Exact etiology unknown. Differential diagnosis would include adhesion of the small bowel to the area of preperitoneal hernia repair versus neoplastic etiology. At this point, it is reasonable to manage conservatively, using a nasogastric decompression and close observation. If on resolved, a water-soluble contrast study would be obtained for further evaluation. Clinical Quality Measures DVT/VTE Risk/Contraindication: Risk Factor Score Per Nursin RFS Level Per Nursing on Admit: 2=Moderate CHRISTINE RYDER MD Mar 21, 2017 14:52
[2017-03-21 15:55] VITALS: BP 138/81
[2017-03-21] MEDS ORDERED: CATHETER FLUSH 10 ML SYR IV PRN (16:30)
--- NOTE | 2017-03-21 17:07 | Diagnostic Imaging Report ---
INDICATION: NG tube placement. FINDINGS: A catheter is in the stomach. IMPRESSION: Catheter in the stomach. Dictated by: Dictated on workstation # [id number]
[2017-03-21] MEDS ORDERED: meTOprolol 5 MG/5 ML (LOPRESSOR) VIAL IV SCH (18:00)
[2017-03-21 19:20] VITALS: BP 145/83
[2017-03-21] MEDS ORDERED: INFLUENZA TRIvalent 2017-2018 0.5 ML/45 MCG SYR IM ONE (19:45)
[2017-03-21] MEDS: ONDANSETRON 4 MG/2 ML (SDV) Z0FRAN IV PRN (19:59)
[2017-03-22] VITALS (7 sets, daily range): BP systolic 146–186; BP diastolic 72–81
[2017-03-22] MEDS: meTOprolol 5 MG/5 ML (LOPRESSOR) VIAL IV PRN ×2 (00:15→07:30)
[2017-03-22] MEDS: NS IV 1000 ML 1,000 ML IV SCH ×2 (02:03→08:44)
[2017-03-22] MEDS: fentaNYL INJECTION 100 MCG/2 ML AMP IV PRN ×6 (05:14→21:57)
[2017-03-22 07:15] LABS: BASOPHILS % (AUTO) 0 % (0-10); EOSINOPHILS # (AUTO) 0.1 10^3/uL (0.0-0.3); EOSINOPHILS % (AUTO) 1 % (0-10); HEMATOCRIT 37 % (40-54); HEMOGLOBIN 12.8 G/DL (13.3-17.7); LYMPHOCYTES % (AUTO) 14 % (12-44); MEAN CORPUSCULAR HEMOGLOBIN 33 PG (25-34); MEAN CORPUSCULAR HGB CONC 34 G/DL (32-36); MEAN CORPUSCULAR VOLUME 95 FL (80-99); MEAN PLATELET VOLUME 9.5 FL (7.4-10.4); MONOCYTES % (AUTO) 13 % (0-12); NEUTROPHILS # (AUTO) 5.4 X 10^3 (1.8-7.8); NEUTROPHILS % (AUTO) 72 % (42-75); PLATELET COUNT 220 10^3/uL (130-400); RED BLOOD COUNT 3.91 10^6/uL (4.35-5.85); RED CELL DISTRIBUTION WIDTH 13.7 % (10.0-14.5); WHITE BLOOD COUNT 7.4 10^3/uL (4.3-11.0)
[2017-03-22 07:35] LABS: CALCIUM 8.5 MG/DL (8.5-10.1); CREATININE SERUM 1.46 MG/DL (0.60-1.30); MAGNESIUM 1.6 MG/DL (1.8-2.4); POTASSIUM 4.2 MMOL/L (3.6-5.0)
[2017-03-22] MEDS: NITROGLYCERIN 2% OINT 1 GM UNIT DOSE PACKET TOP PRN ×2 (10:48→19:45)
--- NOTE | 2017-03-22 11:56 | Progress Note (SOAP) ---
Subjective Date Seen by Provider: Mar 22, 2017 Time Seen by Provider: 11:54 Subjective/Events-last exam abdominal pain continues, to a lesser degree. No nausea. Dark effluent from the NG tube. Has not passed flatus Review of Systems General: No Chills, No Night Sweats, No Fatigue, No Malaise HEENT: No Head Aches, No Eye Pain, No Ear Pain, No Dysphasia, No Sinus Congestion, No Post Nasal Drip, No Sore Throat Pulmonary: No Dyspnea, No Cough, No Pleuritic Chest Pain Cardiovascular: No: Chest Pain, Palpitations, Orthopnea, Paroxysmal Noc. Dyspnea, Edema, Lt Headedness Gastrointestinal: Abdominal Pain, Constipation Genitourinary: No Dysuria, No Frequency, No Incontinence, No Hematuria, No Retention Musculoskeletal: No: other, neck pain, shoulder pain, arm pain, back pain, hand pain, leg pain, foot pain Neurological: No: Weakness, Numbness, Incoordination, Change in speech, Confusion, Seizures, Other Objective Exam Vital Signs Date Time Temp Pulse Resp B/P (MAP) Pulse Ox O2 Delivery O2 Flow Rate FiO2 03/22/17 09:00 Room Air 03/22/17 07:59 97.7 82 22 170/79 (109) 95 Room Air 03/22/17 07:00 103 03/22/17 04:00 98.4 90 18 172/80 (110) 93 Room Air 03/22/17 01:00 80 03/22/17 00:00 98.7 91 18 146/73 (97) 93 Room Air 03/21/17 20:00 Room Air 03/21/17 19:20 97.2 97 20 145/83 (103) 97 Room Air 03/21/17 15:55 98.3 100 18 138/81 (100) 95 Room Air 03/21/17 12:46 95 Room Air 03/21/17 12:25 98.1 90 20 156/83 (107) 98 Room Air 03/21/17 12:14 98 03/21/17 12:10 92 18 98 Room Air I & O 03/22/17 07:00 Intake Total 1000 ml Output Total 1800 ml Balance -800 ml Capillary Refill : Less Than 3 Seconds General Appearance: No Apparent Distress HEENT: Normal ENT Inspection (S was noted) Neck: Normal Inspection Respiratory: Lungs Clear Cardiovascular: Regular Rate, Rhythm Gastrointestinal: soft (saw) Skin: Warm/Dry Other comments mild abdominal tenderness. No evidence of peritonitis. Results Lab Laboratory Tests 03/22/17 07:00: White Blood Count 7.4, Red Blood Count 3.91L, Hemoglobin 12.8L, Hematocrit 37L, Mean Corpuscular Volume 95, Mean Corpuscular Hemoglobin 33, Mean Corpuscular Hemoglobin Concent 34, Red Cell Distribution Width 13.7, Platelet Count 220, Mean Platelet Volume 9.5, Neutrophils (%) (Auto) 72, Lymphocytes (%) (Auto) 14, Monocytes (%) (Auto) 13H, Eosinophils (%) (Auto) 1, Basophils (%) (Auto) 0, Neutrophils # (Auto) 5.4, Lymphocytes # (Auto) 1.0, Monocytes # (Auto) 1.0, Eosinophils # (Auto) 0.1, Basophils # (Auto) 0.0, Sodium Level 143, Potassium Level 4.2, Chloride Level 107, Carbon Dioxide Level 27, Anion Gap 9, Blood Urea Nitrogen 40H, Creatinine 1.46H, Estimat Glomerular Filtration Rate 46, BUN/ Creatinine Ratio 27, Glucose Level 84, Calcium Level 8.5, Magnesium Level 1.6L Assessment/Plan Assessment/Plan Assess & Plan/Chief Complaint Gentleman with features of small bowel obstruction. Exact etiology unknown. Differential diagnosis would include adhesion of the small bowel to the area of preperitoneal hernia repair versus neoplastic etiology. At this point, it is reasonable to manage conservatively, using a nasogastric decompression and close observation. If on resolved, a water-soluble contrast study would be obtained for further evaluation. patient with small bowel obstruction. Water-soluble contrast study scheduled for tomorrow. Very likely to require intervention. Final Diagnosis small bowel obstruction Clinical Quality Measures DVT/VTE Risk/Contraindication: Risk Factor Score Per Nursin RFS Level Per Nursing on Admit: 2=Moderate CHRISTINE RYDER MD Mar 22, 2017 11:56
[2017-03-22] MEDS ORDERED: ARTIFICAL TEARS 0.4 ML UNIT DOSE (REFRESH PLUS) OU PRN (12:00)
--- NOTE | 2017-03-22 12:06 | Progress Note-Hospitalist ---
Subjective HPI/CC On Admission Date Seen by Provider: Mar 22, 2017 Time Seen by Provider: 11:00 Pt is an 82yoCM with a PMH of HTN, BPH, and inguinal hernia repair who presented to the ER for severe abd pain. His symptoms started on the evening of 03/18. He thought he was constipated so had been taking Miralax without relief. He had felt nauseated as well over the weekend with some vomiting. His symptoms progressed and his abd pain worsened today to a 9/10 rating. He described it as a hard pain and crampy in nature. In the ER CT Abd showed bowel obstruction and he was admitted for further management. Subjective/Events-last exam Pt reports felling ok but still having episodes of abd pain. Denies BM or Flatus. Objective Exam Vital Signs Vital Sign - Last 12Hours 03/21/17 08:37 Temp 98.6 Pulse 100 Resp 18 B/P (MAP) 192/100 (130) Pulse Ox 96 O2 Delivery Room Air Capillary Refill : Less Than 3 Seconds General Appearance: No Apparent Distress, WD/WN HEENT: Other (NG in place) Respiratory: Lungs Clear, No Respiratory Distress Cardiovascular: Regular Rate, Rhythm, No Murmur Gastrointestinal: Soft, Distended (mild), Guarding, No Rebound, Tenderness ( diffuse) Extremity: Other (s/p L BKA) Neurologic/Psychiatric: Alert, Oriented x3 Results/Procedures Lab Laboratory Tests 03/22/17 07:00 Assessment/Plan Assessment and Plan Assess & Plan/Chief Complaint SBO Diagnosis/Problems Diagnosis/Problems (1) Small bowel obstruction Status: Acute Assessment & Plan: NPO NGT in place Fentanyl for pain prn Zofran prn Surgery consulted, appreciate recs Plan for small bowel follow through tomorrow (2) Elevated serum creatinine Status: Chronic Assessment & Plan: Labs from 1 year ago reveal Technician Trainee 1.8 Likely Acute on Chronic kidney disease Cont IVF- monitor K closely with addition of potassium to IVF Likely will not impact serum K due to losses from NGT (3) Essential (primary) hypertension Assessment & Plan: Very elevated on admission, likely due to pain trended down yesterday but back up this AM Nitro paste prn SBP >160, IV metoprolol available prn as well ANA HA MD Mar 22, 2017 12:06 pm
[2017-03-22] MEDS: meTOprolol 5 MG/5 ML (LOPRESSOR) VIAL IV SCH ×4 (12:55→23:26)
[2017-03-22] MEDS: D5 LR W/KCL 20 MEQ/L 1,000 ML IV SCH ×2 (12:56→20:40)
[2017-03-22] MEDS: ARTIFICAL TEARS 0.4 ML UNIT DOSE (REFRESH PLUS) OU PRN (14:54)
[2017-03-22] MEDS: ONDANSETRON 4 MG/2 ML (SDV) Z0FRAN IV PRN ×2 (14:58→18:43)
[2017-03-23] VITALS (10 sets, daily range): BP systolic 149–196; BP diastolic 76–94
[2017-03-23] MEDS: ONDANSETRON 4 MG/2 ML (SDV) Z0FRAN IV PRN ×3 (01:02→13:51)
[2017-03-23] MEDS: fentaNYL INJECTION 100 MCG/2 ML AMP IV PRN ×6 (01:03→23:22)
[2017-03-23] MEDS: NITROGLYCERIN 2% OINT 1 GM UNIT DOSE PACKET TOP PRN ×3 (03:10→12:26)
[2017-03-23] MEDS: meTOprolol 5 MG/5 ML (LOPRESSOR) VIAL IV SCH ×6 (03:10→23:24)
[2017-03-23] MEDS: ARTIFICAL TEARS 0.4 ML UNIT DOSE (REFRESH PLUS) OU PRN (03:10)
[2017-03-23] MEDS: D5 LR W/KCL 20 MEQ/L 1,000 ML IV SCH ×2 (05:05→12:33)
[2017-03-23 07:13] LABS: BASOPHILS % (AUTO) 0 % (0-10); EOSINOPHILS # (AUTO) 0.1 10^3/uL (0.0-0.3); EOSINOPHILS % (AUTO) 2 % (0-10); HEMATOCRIT 39 % (40-54); LYMPHOCYTES # (AUTO) 0.8 X 10^3 (1.0-4.0); LYMPHOCYTES % (AUTO) 16 % (12-44); MEAN CORPUSCULAR HEMOGLOBIN 33 PG (25-34); MEAN CORPUSCULAR HGB CONC 34 G/DL (32-36); MEAN CORPUSCULAR VOLUME 98 FL (80-99); MEAN PLATELET VOLUME 9.6 FL (7.4-10.4); MONOCYTES # (AUTO) 0.8 X 10^3 (0.0-1.0); MONOCYTES % (AUTO) 15 % (0-12); NEUTROPHILS # (AUTO) 3.3 X 10^3 (1.8-7.8); NEUTROPHILS % (AUTO) 67 % (42-75); PLATELET COUNT 226 10^3/uL (130-400); RED BLOOD COUNT 3.95 10^6/uL (4.35-5.85); RED CELL DISTRIBUTION WIDTH 13.4 % (10.0-14.5)
[2017-03-23 07:28] LABS: CALCIUM 9.1 MG/DL (8.5-10.1); CREATININE SERUM 1.36 MG/DL (0.60-1.30)
[2017-03-23] MEDS ORDERED: DIATRIZOATE MEGLUM/SODIUM 37% 120 ML (GASTROGRAFIN) NG ONE (09:15)
--- NOTE | 2017-03-23 13:19 | Progress Note-Hospitalist ---
Subjective HPI/CC On Admission Date Seen by Provider: Mar 23, 2017 Time Seen by Provider: 11:30 Pt is an 82yoCM with a PMH of HTN, BPH, and inguinal hernia repair who presented to the ER for severe abd pain. CT Abd showed bowel obstruction and he was admitted for further management. Subjective/Events-last exam Pt reports doing ok today. Pain well controlled but still no BM or flatus. Objective Exam Vital Signs Vital Sign - Last 12Hours 03/21/17 08:37 Temp 98.6 Pulse 100 Resp 18 B/P (MAP) 192/100 (130) Pulse Ox 96 O2 Delivery Room Air Capillary Refill : Less Than 3 Seconds General Appearance: No Apparent Distress, WD/WN Respiratory: Lungs Clear, No Respiratory Distress Cardiovascular: Regular Rate, Rhythm, No Murmur Gastrointestinal: Soft, Abnormal Bowel Sounds (quiet), Distended, Tenderness ( mild, diffuse) Neurologic/Psychiatric: Alert, Oriented x3 Results/Procedures Lab Laboratory Tests 03/23/17 06:58 Assessment/Plan Assessment and Plan Assess & Plan/Chief Complaint SBO Diagnosis/Problems Diagnosis/Problems (1) Small bowel obstruction Status: Acute Assessment & Plan: NPO NGT in place Fentanyl for pain prn Zofran prn Surgery consulted, appreciate recs Small bowel follow through showed high grade SBO Plan for OR today (2) Elevated serum creatinine Status: Chronic Assessment & Plan: Labs from 1 year ago reveal Health Care Consultant 1.8 Improved today to 1.36 Likely Acute on Chronic kidney disease Cont IVF- monitor K closely with addition of potassium to IVF Likely will not impact serum K due to losses from NGT (3) Essential (primary) hypertension Assessment & Plan: Very elevated on admission, likely due to pain trended down yesterday but back up this AM Nitro paste prn SBP >160, IV metoprolol available prn as well Will add hydralazine as well ANA HA MD Mar 23, 2017 1:19 pm
--- NOTE | 2017-03-23 13:58 | Progress Note-Pre Operative ---
Pre-Operative Progress Note H&P Reviewed The H&P was reviewed, patient examined and no changes noted. Date Seen by Provider: Mar 23, 2017 Time Seen by Provider: 13:57 Date H&P Reviewed: Mar 23, 2017 Time H&P Reviewed: 13:57 Pre-Operative Diagnosis: small bowel obstruction CHRISTINE RYDER MD Mar 23, 2017 13:58
[2017-03-23] MEDS ORDERED: metroNIDAZOLE 500MG/100ML IVPB 100 ML IV ONE (14:00)
[2017-03-23] MEDS ORDERED: ceFAZolin INJECTION 1,000 MG in NS (IVPB) 50 ML IV ONE (14:00)
--- NOTE | 2017-03-23 14:04 | Progress Note-Standard ---
Standard Progress Note Progress Notes/Assess & Plan Date Seen by Provider: Mar 23, 2017 Time Seen by Provider: 14:04 Progress/Assessment & Plan Clinical presentation and contrast studies confirmed established small bowel obstruction. It is therefore reasonable to proceed with exploration which may involve bowel resection. Central line will be placed to facilitate parenteral nutrition administration Final Diagnosis Small bowel obstruction CHRISTINE RYDER MD Mar 23, 2017 14:04
--- NOTE | 2017-03-23 14:09 | Diagnostic Imaging Report ---
EXAMINATION: Small bowel exam. INDICATION: Small bowel obstruction. FINDINGS: The CT abdomen/pelvis exam performed on 03/21/2017 indicated a small bowel obstruction. The preliminary film of this exam again reveals that there are numerous dilated gas-filled segments of small bowel present. Gastrografin was introduced to the stomach via the patient's NG tube. At 3 hours, most of the contrast was still within the stomach and proximal small bowel. There is no evidence for extension of the contrast into the colon. Consequently, I do feel that there is a high-grade obstruction of the small bowel. IMPRESSION: 1. The findings would be consistent with a high-grade obstruction of the small bowel. 2. These results were discussed with Dr. Dickerson at the time of this dictation. Dictated by: Dictated on workstation # [id number]
[2017-03-23] MEDS ORDERED: HEParin (CENTRAL IV FLUSH) 500 UNIT/5 ML SYR ONE (14:17)
[2017-03-23] MEDS ORDERED: hydrALAZINE (APESOLINE) 20 MG/ML VIAL IV PRN (14:45)
[2017-03-23] MEDS ORDERED: SUCCINYLCHOLINE INJ 100 MG/5 ML SYR ONE (14:46)
[2017-03-23] MEDS ORDERED: proPOfol 200 MG/20 ML (DIPRIVAN) VIAL IV ONE (14:47)
[2017-03-23] MEDS ORDERED: ROCURONIUM 50 MG/5 ML (ZEMURON) VIAL IV ONE (14:47)
[2017-03-23] MEDS ORDERED: LIDOCAINE PF 2% 5 ML (XYLOCAINE) VIAL ONE (14:47)
[2017-03-23] MEDS ORDERED: MIDAZOLAM 2 MG/2 ML (VERSED) VIAL ONE (14:48)
[2017-03-23] MEDS ORDERED: fentaNYL INJECTION 100 MCG/2 ML AMP ONE (14:48)
[2017-03-23] MEDS ORDERED: SEVOFLURANE (ULTANE) 15 ML INHAL SOLN ONE ×7 (14:49→16:51)
[2017-03-23] MEDS: LACTATED RINGERS 1,000 ML IV PRN ×2 (15:03→16:00)
[2017-03-23] MEDS ORDERED: ONDANSETRON 4 MG/2 ML (SDV) Z0FRAN ONE ×3 (15:29→16:18)
[2017-03-23] MEDS ORDERED: DEXAMETHASONE 10 MG/ML (DECADRON) 1 ML VIAL ONE (15:29)
[2017-03-23] MEDS ORDERED: ceFAZolin INJECTION 1,000 MG in NS (IVPB) 50 ML IV NR (15:30)
[2017-03-23] MEDS ORDERED: metroNIDAZOLE 500MG/100ML IVPB 100 ML IV NR (15:30)
[2017-03-23] MEDS ORDERED: LACTATED RINGERS 1,000 ML IV SCH (15:30)
[2017-03-23] MEDS ORDERED: morphine INJ 10 MG/ML 1ML (SYR OR VIAL) ONE (16:07)
[2017-03-23] MEDS ORDERED: BUP/EPI 0.5% 1:200,000 (MARCAINE) 10ML VIAL IJ ONE (16:36)
[2017-03-23] MEDS ORDERED: NEOSTIGMINE (BLOXIVERZ ) 1 MG/1ML 10 ML VIAL ONE (16:42)
[2017-03-23] MEDS ORDERED: GLYCOPYRROLATE 0.2 MG/ML (ROBINUL) 2 ML VIAL ONE (16:42)
[2017-03-23] MEDS ORDERED: LACTATED RINGERS 1,000 ML IV PRN (16:48)
--- NOTE | 2017-03-23 16:48 | Operative Report ---
Operative Report Date of Procedure/Surgery Mar 23, 2017 Surgeon (s) CHRISTINE RYDER MD Aquatic Performer (s): Don Rodríguez (Med Student) Post-Operative Diagnosis Complete obstruction of mid ileum due to an adhesive band Procedure Performed 1. Central line placement 2. Laparotomy/small bowel resection Description of Procedure Anesthesia Type: General Estimated blood loss (mL): Minimal Specimen(s) collected/removed Small bowel segment Description of the Procedure Indication for procedure: This gentleman presented with small bowel obstruction , confirmed by radiologic evaluation. He was therefore offered prompt laparotomy to identify the source of obstruction and address it. The potential for bowel resection was highlighted. Placing a central line to facilitate invasive hemodynamic monitoring and TPN administration was also discussed. Informed consent was obtained after reviewing the operative details and complications of wound infection, intra-abdominal abscess and cardiorespiratory dysfunction. Description of the procedure: He was placed supine on the operative table and general anesthesia induced using an endotracheal tube. A gram of Ancef and 500 mg of Flagyl were administered intravenously as prophylaxis against wound infection. Sequential compression devices were placed around his legs, to minimize the risk of venous thrombosis. 1. Central line placement: He was placed in Trendelenburg position and his left infra-clavicular fossa prepared and draped in the usual sterile manner. Subclavian vein was accessed and a floppy guidewire introduced into the heart. Subcutaneous tract was gently dilated using a silastic sheath and a 20 cm long, 7.5 Turkmen, triple lumen central venous catheter advanced using Seldinger technique. All the channels were aspirated and flushed with heparinized saline. The catheter was then secured using a silk suture and a dressing applied. 2. Laparotomy/small bowel resection: Abdomen was prepared and draped in the usual sterile manner. A midline incision was made and abdomen entered safely dilated proximal bowel loops were identified and decompressed into the stomach, the contents being suctioned out using the existing nasogastric tube. Further exploration led transition point at the mid ileum with complete obstruction. Tight band of adhesion extending from the sigmoid colon to the lateral pelvic wall was the offending pathology. The involved small bowel loop was ischemic with obvious thrombosis of the mesenteric vessels. Therefore, resection was felt to be appropriate. A segment measuring about 15 cm in length was resected, both the ends being divided using AKRLA-75 stapling device. The mesentery was controlled using Harmonic scalpel. A igii-mp-xeau anastomosis was created using the same stapling device. The common enterotomy was closed using a TA-60 stapler. The staple line was reinforced with Ligaclips and 3-0 silk sutures. The mesenteric defect was then closed using a 3 -0 PDS suture to avoid internal herniation. Abdominal cavity was thoroughly irrigated with saline and the fascia closed using #2 Prolene. Subcutaneous tissue was approximated using 3-0 Vicryl and skin with 4-0 Monocryl, in a subcuticular fashion. 0.5 percent Marcaine with epinephrine was infiltrated along the incision at the end of the operation. He tolerated the procedure well, was extubated and operative and taken to the recovery room in a stable condition. Findings of the Procedure See op report Allergies and Home Medications Allergies Coded Allergies: Sulfa (Sulfonamide Antibiotics) (Unverified Allergy, Severe, 03/23/17) cephalexin (Verified Adverse Reaction, Severe, NAUSEA/DIARRHEA, 03/23/17) clindamycin (Verified Adverse Reaction, Severe, NAUSEA/DIARRHEA, 03/23/17) Home Medications Aspirin 81 Mg Tablet.dr, 81 MG PO DAILY, (Reported) Carboxymethylcellulos/Glycerin 10 Ml Drops.gel, 1 DROP OU BID PRN for DRY EYES, (Reported) Cyanocobalamin (Vitamin B-12) 2,500 Mcg Tab.subl, 2,500 MCG SL DAILY, (Reported) Cyclosporine 1 Each Droperette, 1 DROP OU BID, (Reported) Diclofenac Sodium 75 Mg Tablet.dr, 75 MG PO DAILY, (Reported) Enalapril Maleate 10 Mg Tablet, 20 MG PO DAILY, (Reported) LAST FILLED #180 5--17 TAKES 2 (10MG) TABLETS Mineral Oil/Petrolatum,White 3.5 Gm Oint...g., OU HS, (Reported) Misoprostol 200 Mcg Tablet, 100 MCG PO DAILY, (Reported) TAKES 1/2 (200MCG) TABLET Multivitamin 1 Each Tablet, 1 TAB PO DAILY, (Reported) Polyethylene Glycol 3350 17 Gm Powd.pack, 17 GM PO DAILY PRN for CONSTIPATION- 2ND LINE, (Reported) Potassium Gluconate 99 Mg Tablet, 99 MG PO DAILY PRN for CRAMPS, (Reported) Saw [place] Fruit 450 Mg Capsule, 450 MG PO DAILY, (Reported) Tamsulosin HCl 0.4 Mg Cap.er.24h, 0.4 MG PO 1730, (Reported) LAST FILLED #30 17 Tolterodine Tartrate 2 Mg Tablet, 2 MG PO DAILY, (Reported) Vit A,C & E/Lutein/Minerals 1 Each Tablet, 1 TAB PO DAILY, (Reported) CHRISTINE RYDER MD Mar 23, 2017 4:48 pm
[2017-03-23] MEDS ORDERED: ONDANSETRON 4 MG/2 ML (SDV) Z0FRAN IVP PRN ×2 (17:00→17:15)
[2017-03-23] MEDS ORDERED: morphine INJ 10 MG/ML 1ML (SYR OR VIAL) IVP PRN (17:15)
[2017-03-23] MEDS ORDERED: MEPERIDINE (DEMEROL) INJ 50 MG/ML IVP PRN (17:15)
[2017-03-23] MEDS ORDERED: HYDROmorphone (DILAUDID) 2 MG/ML VIAL IVP PRN (17:15)
[2017-03-23] MEDS: fentaNYL INJECTION 100 MCG/2 ML AMP IVP PRN ×4 (17:28→17:45)
[2017-03-23] MEDS: ENOXAPARIN 40 MG/0.4 ML (LOVENOX) SYR SC SCH (17:50)
--- NOTE | 2017-03-23 18:32 | Diagnostic Imaging Report ---
INDICATION: Central line placement. COMPARISON: Comparison made with a prior chest radiograph from March 21, 2017. FINDINGS: New central line has been placed which appears placed via a subclavian approach. The tip appears to be within the right atrium. An enteric tube extends to the stomach. There is no pneumothorax. Lung volumes lungs are low with some basilar atelectasis. There appear to be small bilateral pleural effusions. There is mild central pulmonary vascular congestion. There is no focal alveolar consolidation. IMPRESSION: 1. New left subclavian line. Its tip appears to terminate within the right atrium. There is no pneumothorax. 2. Low lung volumes with basilar atelectasis and small pleural effusions. Dictated by: Dictated on workstation # [id number]
[2017-03-23] MEDS: LACTATED RINGERS 1,000 ML IV SCH (19:32)
[2017-03-23] MEDS: metroNIDAZOLE 500MG/100ML IVPB 100 ML IV SCH (22:08)
[2017-03-23] MEDS: ceFAZolin INJECTION 1,000 MG in NS (IVPB) 50 ML IV SCH (22:09)
[2017-03-24] VITALS (13 sets, daily range): BP systolic 136–173; BP diastolic 65–95
[2017-03-24] MEDS: fentaNYL INJECTION 100 MCG/2 ML AMP IV PRN ×9 (00:54→23:42)
[2017-03-24] MEDS: LACTATED RINGERS 1,000 ML IV SCH ×5 (00:56→20:28)
[2017-03-24] MEDS: meTOprolol 5 MG/5 ML (LOPRESSOR) VIAL IV SCH ×5 (03:34→20:28)
[2017-03-24 05:06] LABS: BASOPHILS % (AUTO) 0 % (0-10); EOSINOPHILS % (AUTO) 0 % (0-10); HEMATOCRIT 35 % (40-54); HEMOGLOBIN 11.8 G/DL (13.3-17.7); LYMPHOCYTES # (AUTO) 0.6 X 10^3 (1.0-4.0); MEAN CORPUSCULAR HEMOGLOBIN 33 PG (25-34); MEAN CORPUSCULAR HGB CONC 34 G/DL (32-36); MEAN CORPUSCULAR VOLUME 98 FL (80-99); MONOCYTES # (AUTO) 0.6 X 10^3 (0.0-1.0); NEUTROPHILS # (AUTO) 7.1 X 10^3 (1.8-7.8); NEUTROPHILS % (AUTO) 85 % (42-75); PLATELET COUNT 219 10^3/uL (130-400); RED BLOOD COUNT 3.56 10^6/uL (4.35-5.85); RED CELL DISTRIBUTION WIDTH 13.7 % (10.0-14.5); WHITE BLOOD COUNT 8.3 10^3/uL (4.3-11.0)
[2017-03-24 05:10] LABS: INR 1.1 (0.8-1.4); PROTHROMBIN TIME PATIENT 14.5 SEC (12.2-14.7)
[2017-03-24 05:12] LABS: MONOCYTES % (AUTO) 7 % (0-12)
[2017-03-24 05:13] LABS: LYMPHOCYTES % (AUTO) 8 % (12-44)
[2017-03-24] MEDS: metroNIDAZOLE 500MG/100ML IVPB 100 ML IV SCH (05:25)
[2017-03-24] MEDS: ceFAZolin INJECTION 1,000 MG in NS (IVPB) 50 ML IV SCH (05:25)
[2017-03-24 05:27] LABS: ALBUMIN 2.8 GM/DL (3.2-4.5); BILIRUBIN,TOTAL 0.4 MG/DL (0.1-1.0); CALCIUM 8.1 MG/DL (8.5-10.1); CREATININE SERUM 1.38 MG/DL (0.60-1.30); MAGNESIUM 1.6 MG/DL (1.8-2.4); PHOSPHORUS 3.1 MG/DL (2.3-4.7); POTASSIUM 4.2 MMOL/L (3.6-5.0); TOTAL PROTEIN 5.3 GM/DL (6.4-8.2)
[2017-03-24] MEDS ORDERED: MAGNESIUM 1 GM/100 ML IVPB 100 ML IV SCH (06:00)
[2017-03-24] MEDS ORDERED: KCL 20 MEQ TAB (K-DUR) PO SCH (06:00)
[2017-03-24] MEDS ORDERED: POTASSIUM CL 10MEQ/50ML IVPB 50 ML IV SCH (06:00)
[2017-03-24] MEDS: MAGNESIUM 1 GM/100 ML IVPB 100 ML IV SCH ×2 (06:23→07:31)
--- NOTE | 2017-03-24 08:08 | Progress Note-Hospitalist ---
Subjective HPI/CC On Admission Date Seen by Provider: Mar 24, 2017 Time Seen by Provider: 07:30 Pt is an 82yoCM with a PMH of HTN, BPH, and inguinal hernia repair who presented to the ER for severe abd pain. CT Abd showed bowel obstruction and he was admitted for further management. Subjective/Events-last exam Pt reports feeling okay. Still having intermittent abd pain though current pain medicine controls it. No other concerns. Objective Exam Vital Signs Vital Sign - Last 12Hours 03/21/17 03/23/17 08:37 18:24 Temp 98.6 Pulse 100 Resp 18 B/P (MAP) 192/100 (130) Pulse Ox 96 O2 Delivery Room Air O2 Flow Rate 2.00 Capillary Refill : Less Than 3 Seconds General Appearance: No Apparent Distress Respiratory: Lungs Clear, Normal Breath Sounds Cardiovascular: Regular Rate, Rhythm, No Murmur Gastrointestinal: Abnormal Bowel Sounds, No Guarding, Tenderness (mild, appropriate, ABD pad in place over surgical site) Extremity: Other (s/p L BKA) Neurologic/Psychiatric: Alert, Oriented x3 Results/Procedures Lab Laboratory Tests 03/24/17 04:45 Assessment/Plan Assessment and Plan Assess & Plan/Chief Complaint SBO Diagnosis/Problems Diagnosis/Problems (1) Small bowel obstruction Status: Acute Assessment & Plan: NPO NGT in place Fentanyl for pain prn Zofran prn Surgery consulted, appreciate recs Small bowel follow through showed high grade SBO POD #1 s/p resection TPN ordered (2) Elevated serum creatinine Status: Chronic Assessment & Plan: Labs from 1 year ago reveal Heel Stainer 1.8 Improved today to 1.38 Likely Acute on Chronic kidney disease Cont IVF- monitor K closely with addition of potassium to IVF Likely will not impact serum K due to losses from NGT (3) Essential (primary) hypertension Assessment & Plan: Improved this AM Nitro paste prn SBP >160, IV metoprolol available prn as well Will add hydralazine as well (none needed) (4) Normocytic anemia Status: Acute Assessment & Plan: Will continue to trend Likely dilutional and due to operative losses ANA HA MD Mar 24, 2017 8:08 am
--- NOTE | 2017-03-24 10:00 | Diagnostic Imaging Report ---
INDICATION: NG tube placement. EXAMINATION: Portable chest at 5:01 AM. FINDINGS: The is an NG tube projecting over the stomach. The left subclavian central line tip projects over the right atrium. The heart size and pulmonary vascularity are normal. The lungs are clear. There are no effusions or pneumothoraces. IMPRESSION: No acute abnormalities in the chest. Dictated by: Dictated on workstation # [id number]
--- NOTE | 2017-03-24 15:48 | Physical Therapy Evaluation ---
PT Evaluation-General Medical Diagnosis Admission Date Mar 21, 2017 at 11:30 Medical Diagnosis: small bowel obstruction Onset Date: Mar 21, 2017 Therapy Diagnosis Therapy Diagnosis: generalized weakness/debility Height/Weight Height (Feet): 5 Height (Inches): 9.00 Weight (Pounds): 141 Weight (Ounces): 0.0 Precautions Precautions/Isolations: Fall Prevention, Standard Precautions Weight Bear Status Right Lower Extremity: Right Full Weight Bearing Left Lower Extremity: Left Weight Bearing/Tolerated pt is a left BKA and has prosthesis at bedside Referral Physician: Tuan Reason for Referral: Evaluation/Treatment Medical History Pertinent Medical History: HTN Additional Medical History left BKA Current History s/p small bowel resection after 3 days of abdominal pain Reviewed History: Yes Social History Home: Single Level Current Living Status: Other Family Prior/[facility] FIM Prior Level of Function Functional [place] Measure 0=Not Assessed/NA 4=Minimal Assistance 1=Total Assistance 5=Supervision or Setup 2=Maximal Assistance 6=Modified [place] 3=Moderate Assistance 7=Complete [place] Bed Mobility: 6 Transfers (B,C,W/C) (FIM): 6 Gait: 6 uses 4WW at home PT Evaluation-Current Subjective Patient agrees to PT. Pain Numeric Pain Scale: 5-Moderate Pain Location: Lower Location Body Site: Abdomen Pain Description: Pressure, Acute Objective Patient Orientation: Normal For Age Problem Solving: Good Attachments: IV ROM/Strength ROM Lower Extremities bilateral LE WNL Strength Lower Extremities right knee flexion/extension 4/5; hip flexion 4/5;DF/PF 4/5 left knee flexion/extension 4/5; hip flexion 4/5 Integumentary/Posture Integumentary refer to nursing notes Bowel Incontinence: No Bladder Incontinence: Yes Posture severe kyphosis Neuromuscular (Tone, Coordination, Reflexes) grossly intact Sensory Vision: Wears Glasses Hearing: Functional Sensation Right Lower Extremit: Intact Sensation Left Lower Extremity: Intact Transfers Functional [place] Measure 0=Not Assessed/NA 4=Minimal Assistance 1=Total Assistance 5=Supervision or Setup 2=Maximal Assistance 6=Modified [place] 3=Moderate Assistance 7=Complete [place] Transfers (B, C, W/C) (FIM): 4 Scootin Rollin Supine to/from Sit: 4 Sit to/from Stand: 5 Gait Mode of Locomotion: Walk Anticipated Mode of Locomotion: Walk Gait (FIM): 5 Distance (FIM): 3=150 ft Distance: 200' Gait Level of Assist: 5 Gait Assistive Device: FWW Comments/Gait Description patient xiomy left prosthetic with set up only Balance Sitting Static: Normal Sitting Dynamic: Normal Standing Static: Normal Standing Dynamic: Normal Assessment/Needs 82 y.o. male, will benefit from skilled PT to address functional strength and mobility to improve current LOF and to safely return to home at maximum LOF. Rehab Potential: Good PT Fpc Goals Fpc Goals PT Qualitative Executive Researcher Goals Time Frame: Apr 08, 2017 Transfers (B,C,W/C) (FIM): 6 Gait (FIM): 6 Gait distance (FIM): 3=150 ft Distance: 250' Gait Level of Assist: 6 Gait Assistive Device: FWW PT Plan Treatment/Plan Treatment Plan: Continue Plan of Care Treatment Plan: Bed Mobility, Education, Functional Activity Shamir, Functional Strength, Gait, Safety, Therapeutic Exercise, Transfers Treatment Duration: Apr 08, 2017 Frequency: 6 times per week Estimated Hrs Per Day: .25 hour per day Patient and/or Family Agrees t: Yes Discharge Recommendations Therapy D/C Recommendations: Home w/ Family Support Time/GCodes Time In: 1515 Time Out: 1530 Total Billed Treatment Time: 15 Total Billed Treatment 1 visit EVMod 15 min ODESSA CHASE PT Mar 24, 2017 15:48
[2017-03-24] MEDS ORDERED: TPN IV SCH (16:00)
--- NOTE | 2017-03-24 16:05 | Progress Note-Standard ---
Standard Progress Note Progress Notes/Assess & Plan Date Seen by Provider: Mar 24, 2017 Time Seen by Provider: 12:30 Progress/Assessment & Plan Clinical presentation and contrast studies confirmed established small bowel obstruction. It is therefore reasonable to proceed with exploration which may involve bowel resection. Central line will be placed to facilitate parenteral nutrition administration Reasonable postoperative recovery. Nasogastric output has decreased. Vital signs stable. Afebrile. Electrolytes normal. Patient reports as in flatus. Reasonable to use TPN in view of active nutrition for over a week Final Diagnosis Small bowel obstruction CHRISTINE RYDER MD Mar 24, 2017 16:05
--- NOTE | 2017-03-24 16:06 | Anesthesia-General Post-Op ---
General Patient Condition Mental Status/LOC: Same as Preop Cardiovascular: Satisfactory Nausea/Vomiting: Absent Respiratory: Satisfactory Pain: Controlled Complications: Absent Post Op Complications Complications None Follow Up Care/Instructions Patient Instructions None needed. Anesthesia/Patient Condition Patient Condition Patient is doing well, no complaints, stable vital signs, no apparent adverse anesthesia problems. No complications reported per nursing. TIP VILLEGAS CRNA Mar 24, 2017 16:06
[2017-03-24] MEDS ORDERED: [UNRECOGNIZED DRUG - OTHER] IV SCH ×10 (17:00)
[2017-03-24] MEDS ORDERED: SODIUM CHLORIDE IV SCH ×10 (17:00)
[2017-03-24] MEDS ORDERED: POTASSIUM CHLORIDE IV SCH ×10 (17:00)
[2017-03-24] MEDS: ENOXAPARIN 40 MG/0.4 ML (LOVENOX) SYR SC SCH (17:38)
[2017-03-25] VITALS: BP 156/82
[2017-03-25] MEDS: meTOprolol 5 MG/5 ML (LOPRESSOR) VIAL IV SCH ×3 (00:16→08:19)
[2017-03-25] MEDS: fentaNYL INJECTION 100 MCG/2 ML AMP IV PRN ×7 (03:01→22:28)
[2017-03-25 04:00] VITALS: BP 176/81
[2017-03-25 04:42] LABS: BUN/CREATININE RATIO 21; CARBON DIOXIDE 31 MMOL/L (21-32); CHLORIDE 107 MMOL/L (98-107); CREATININE SERUM 1.16 MG/DL (0.60-1.30); POTASSIUM 3.9 MMOL/L (3.6-5.0); SODIUM 147 MMOL/L (135-145)
[2017-03-25 04:43] LABS: ALANINE AMINOTRANSFERASE 14 U/L (0-55); ALBUMIN 2.7 GM/DL (3.2-4.5); ALKALINE PHOSPHATASE 69 U/L (40-136); BILIRUBIN,TOTAL 0.4 MG/DL (0.1-1.0); CALCIUM 8.3 MG/DL (8.5-10.1); GFR ESTIMATED > 60; GLUCOSE 111 MG/DL (70-105); MAGNESIUM 2.2 MG/DL (1.8-2.4); PHOSPHORUS 1.5 MG/DL (2.3-4.7); TOTAL PROTEIN 5.5 GM/DL (6.4-8.2)
[2017-03-25 08:00] VITALS: BP 156/68
[2017-03-25] MEDS ORDERED: NS INJ ONE (08:03)
[2017-03-25] MEDS ORDERED: SODIUM PHOSPHATE INJ ONE (08:03)
[2017-03-25] MEDS: ONDANSETRON 4 MG/2 ML (SDV) Z0FRAN IV PRN ×3 (08:19→20:24)
[2017-03-25] MEDS: LACTATED RINGERS 1,000 ML IV SCH (08:20)
--- NOTE | 2017-03-25 10:11 | Progress Note-Hospitalist ---
Progress Note HPI/CC on Admission Pt is an 82yoCM with a PMH of HTN, BPH, and inguinal hernia repair who presented to the ER for severe abd pain. CT Abd showed bowel obstruction and he was admitted for further management. Progress Notes/Assess & Plan Date Seen 03/25/17 Time Seen by Provider: 10:00 Admission Dx/Process Patient doing well NG tube was removed now advancing diet to clear liquids per Dr. Dickerson Pain is controlled Reviewed labs Blood pressure still slightly elevated and will discontinue telemetry. Lopressor IV switch to metoprolol by mouth Patient very debilitated IVF continues No fever, vital stable except for mildly elevated blood pressure Regular rate and rhythm, clear to auscultation bilaterally but diminished breath sounds all moses No edema No bowel sounds noted Laboratory Tests 03/25/17 04:12 Plan: Advance diet to clear liquids Pain control Physical therapy Out of bed DC telemetry Change IV Lopressor to by mouth Lopressor Inpatient rehabilitation eval Diagnosis/Problems Diagnosis/Problems (1) Small bowel obstruction Status: Acute Assessment & Plan: status post evacuation of small bowel obstruction postop day # 2 (2) Essential (primary) hypertension Status: Chronic Assessment & Plan: Changed to Lopressor by mouth DC telemetry and added Norvasc (3) Acute renal insufficiency Status: Resolved Assessment & Plan: maintain gentle IV fluids Acute on chronic renal insufficiency ANN MARIE ROD DO Mar 25, 2017 10:11
[2017-03-25] MEDS ORDERED: POTASSIUM PHOSPHATE INJ 30 MM in NS (IVPB) 250 ML IV ONE (10:30)
[2017-03-25] MEDS: meTOprolol TARTRATE 25 MG (LOPRESSOR) TABLET PO SCH ×2 (10:43→20:23)
[2017-03-25] MEDS: amLODIPine 5 MG (NORVASC) TAB PO SCH (10:56)
--- NOTE | 2017-03-25 13:20 | Physical Therapy Daily Note ---
PT Daily Note-Current Subjective Patient is in bed and agrees to PT. Pain Numeric Pain Scale: 0-No Pain Location: No Pain Reported Mental Status Patient Orientation: Normal For Age Attachments: IV Transfers Functional [place] Measure 0=Not Assessed/NA 4=Minimal Assistance 1=Total Assistance 5=Supervision or Setup 2=Maximal Assistance 6=Modified [place] 3=Moderate Assistance 7=Complete IndependenceIRFPAI Quality Coding Scale 6 Independent with activity with or without an assistive device 5 Patient requires set up or clean up by helper. Patient completes activity by themselves 4 Supervision or touching assist (CGA). [place] provide cues , steadying assist 3 The helper provides less than half the effort to complete the activity 2 The helper provides more than half the effort to complete the activity 1 Dependent. 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 Gait Training Gait (FIM): 5 Distance (FIM): 3=150 ft Distance: 225' Gait Level of Assist: 5 Gait Assistive Device: FWW patient donns left prosthesis with set up/safe and functional gait sequence with FWW Assessment Current Status: Excellent Progress PT Office Support Associate Goals Office Support Associate Goals PT Office Support Associate Goals Time Frame: Apr 08, 2017 Transfers (B,C,W/C) (FIM): 6 Gait (FIM): 6 Gait distance (FIM): 3=150 ft Distance: 250' Gait Level of Assist: 6 Gait Assistive Device: FWW PT Plan Treatment/Plan Treatment Plan: Continue Plan of Care Treatment Plan: Bed Mobility, Education, Functional Activity Shamir, Functional Strength, Gait, Safety, Therapeutic Exercise, Transfers Treatment Duration: Apr 08, 2017 Frequency: 6 times per week Estimated Hrs Per Day: .25 hour per day Patient and/or Family Agrees t: Yes Time/GCodes Time In: 1250 Time Out: 1308 Total Billed Treatment Time: 18 Total Billed Treatment 1 visit FA 18 min ODESSA CHASE PT Mar 25, 2017 13:20
[2017-03-25 16:00] VITALS: BP 181/82
[2017-03-25] MEDS ORDERED: [UNRECOGNIZED DRUG - OTHER] IV SCH ×9 (17:00)
[2017-03-25] MEDS ORDERED: POTASSIUM CHLORIDE IV SCH ×9 (17:00)
[2017-03-25] MEDS ORDERED: SODIUM PHOSPHATE IV SCH ×9 (17:00)
[2017-03-25] MEDS: 1/2 NS IV SOLUTION 1,000 ML IV SCH (17:57)
--- NOTE | 2017-03-25 18:01 | Progress Note-Standard ---
Standard Progress Note Progress Notes/Assess & Plan Date Seen by Provider: Mar 25, 2017 Time Seen by Provider: 18:00 Progress/Assessment & Plan Clinical presentation and contrast studies confirmed established small bowel obstruction. It is therefore reasonable to proceed with exploration which may involve bowel resection. Central line will be placed to facilitate parenteral nutrition administration Reasonable postoperative recovery. Nasogastric output has decreased. Vital signs stable. Afebrile. Electrolytes normal. Patient reports as in flatus. Reasonable to use TPN in view of active nutrition for over a week Feeling nauseous. No abdominal distension. Incision dry. Will use reglan Final Diagnosis Small bowel obstruction CHRISTINE RYDER MD Mar 25, 2017 6:01 pm
[2017-03-25] MEDS: ENOXAPARIN 40 MG/0.4 ML (LOVENOX) SYR SC SCH (18:06)
[2017-03-25 20:20] VITALS: BP 182/80
[2017-03-25 22:11] VITALS: BP 176/92
[2017-03-25] MEDS: NITROGLYCERIN 2% OINT 1 GM UNIT DOSE PACKET TOP PRN (22:28)
[2017-03-25] MEDS: METOCLOPRAMIDE INJ 10 MG/2 ML (REGLAN) IVP SCH (23:41)
[2017-03-26] VITALS (7 sets, daily range): BP systolic 157–194; BP diastolic 57–100
[2017-03-26] MEDS: fentaNYL INJECTION 100 MCG/2 ML AMP IV PRN ×7 (00:32→23:41)
[2017-03-26] MEDS: ONDANSETRON 4 MG/2 ML (SDV) Z0FRAN IV PRN ×3 (00:32→17:38)
[2017-03-26] MEDS: METOCLOPRAMIDE INJ 10 MG/2 ML (REGLAN) IVP SCH ×4 (06:35→23:40)
[2017-03-26 07:07] LABS: ALANINE AMINOTRANSFERASE 12 U/L (0-55); ALBUMIN 2.8 GM/DL (3.2-4.5); ALKALINE PHOSPHATASE 72 U/L (40-136); BILIRUBIN,TOTAL 0.3 MG/DL (0.1-1.0); BUN/CREATININE RATIO 24; CALCIUM 8.1 MG/DL (8.5-10.1); CARBON DIOXIDE 29 MMOL/L (21-32); CHLORIDE 108 MMOL/L (98-107); CREATININE SERUM 1.02 MG/DL (0.60-1.30); GFR ESTIMATED > 60; GLUCOSE 180 MG/DL (70-105); MAGNESIUM 2.1 MG/DL (1.8-2.4); PHOSPHORUS 2.8 MG/DL (2.3-4.7); POTASSIUM 3.5 MMOL/L (3.6-5.0); SODIUM 147 MMOL/L (135-145); TOTAL PROTEIN 5.7 GM/DL (6.4-8.2)
[2017-03-26] MEDS ORDERED: POTASSIUM PHOSPHATE MM IV NR ×2 (08:00)
[2017-03-26] MEDS ORDERED: NS IV NR ×2 (08:00)
[2017-03-26] MEDS: meTOprolol TARTRATE 25 MG (LOPRESSOR) TABLET PO SCH ×2 (09:10→20:55)
[2017-03-26] MEDS: amLODIPine 5 MG (NORVASC) TAB PO SCH (09:10)
[2017-03-26] MEDS: 1/2 NS IV SOLUTION 1,000 ML IV SCH (10:57)
--- NOTE | 2017-03-26 12:02 | Progress Note-Standard ---
Standard Progress Note Progress Notes/Assess & Plan Date Seen by Provider: Mar 26, 2017 Time Seen by Provider: 10:40 Progress/Assessment & Plan Clinical presentation and contrast studies confirmed established small bowel obstruction. It is therefore reasonable to proceed with exploration which may involve bowel resection. Central line will be placed to facilitate parenteral nutrition administration Reasonable postoperative recovery. Nasogastric output has decreased. Vital signs stable. Afebrile. Electrolytes normal. Patient reports as in flatus. Reasonable to use TPN in view of active nutrition for over a week Feeling nauseous. No abdominal distension. Incision dry. Will use reglan no new symptoms. No abdominal distention. Hypokalemia, will be replaced. Final Diagnosis small bowel obstruction. CHRISTINE RYDER MD Mar 26, 2017 12:02 pm
[2017-03-26] MEDS ORDERED: MAGNESIUM CITRATE 300 ML BTL PO NR (12:15)
--- NOTE | 2017-03-26 12:38 | Progress Note-Hospitalist ---
Progress Note HPI/CC on Admission Pt is an 82yoCM with a PMH of HTN, BPH, and inguinal hernia repair who presented to the ER for severe abd pain. CT Abd showed bowel obstruction and he was admitted for further management. Progress Notes/Assess & Plan Date Seen 03/26/17 Time Seen by Provider: 11:30 Admission Dx/Process Patient doing well jus slow to motivate Pain is controlled Reviewed labs Blood pressure still slightly elevated but just gave BP meds per RN Patient very debilitated Mag citrate will be given No fever, vital stable except for mildly elevated blood pressure, very debilitated Regular rate and rhythm, clear to auscultation bilaterally but diminished breath sounds all moses No edema Noted bowel sounds Laboratory Tests 03/26/17 06:35 Assessment: Status post small bowel obstruction requiring surgery Hypertension [id number] Hypokalemia Hyperglycemia Chronic debility with slow motivation Ileus resolved Plan: Advance diet per surgery Pain control Physical therapy Out of bed Inpatient rehabilitation eval Mag citrate Diagnosis/Problems Diagnosis/Problems (1) Small bowel obstruction Status: Acute Assessment & Plan: status post evacuation of small bowel obstruction postop day # 2 (2) Essential (primary) hypertension Status: Chronic Assessment & Plan: Changed to Lopressor by mouth DC telemetry and added Norvasc (3) Acute renal insufficiency Status: Resolved Assessment & Plan: maintain gentle IV fluids Acute on chronic renal insufficiency ANN MARIE ROD DO Mar 26, 2017 12:38
--- NOTE | 2017-03-26 13:24 | Physical Therapy Daily Note ---
PT Daily Note-Current Subjective PT agreeable to ther ex in bed. Pt c/o abdominal pain and nausea. Pain rated 6 /10. Nurse aware and will give pain medication when it is time. Transfers Functional [place] Measure 0=Not Assessed/NA 4=Minimal Assistance 1=Total Assistance 5=Supervision or Setup 2=Maximal Assistance 6=Modified [place] 3=Moderate Assistance 7=Complete IndependenceIRFPAI Quality Coding Scale 6 Independent with activity with or without an assistive device 5 Patient requires set up or clean up by helper. Patient completes activity by themselves 4 Supervision or touching assist (CGA). [place] provide cues , steadying assist 3 The helper provides less than half the effort to complete the activity 2 The helper provides more than half the effort to complete the activity 1 Dependent. 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 All needs met. PT Electric Deicer Inspector Goals Correction Goals PT Correction Goals Time Frame: Apr 08, 2017 Transfers (B,C,W/C) (FIM): 6 Gait (FIM): 6 Gait distance (FIM): 3=150 ft Distance: 250' Gait Level of Assist: 6 Gait Assistive Device: FWW PT Plan Treatment/Plan Treatment Plan: Continue Plan of Care Treatment Plan: Bed Mobility, Education, Functional Activity Shamir, Functional Strength, Gait, Safety, Therapeutic Exercise, Transfers Treatment Duration: Apr 08, 2017 Frequency: 6 times per week Estimated Hrs Per Day: .25 hour per day Patient and/or Family Agrees t: Yes Time/GCodes Time In: 1040 Time Out: 1100 Total Billed Treatment Time: 20 Total Billed Treatment 1, ther ex 20 min ELAYNE JOYCE CPTA Mar 26, 2017 13:24
[2017-03-26] MEDS: ENOXAPARIN 40 MG/0.4 ML (LOVENOX) SYR SC SCH (17:05)
[2017-03-26] MEDS: NITROGLYCERIN 2% OINT 1 GM UNIT DOSE PACKET TOP PRN ×2 (17:05→23:41)
[2017-03-26] MEDS: POTASSIUM CHLORIDE IV SCH ×9 (17:37)
[2017-03-26] MEDS: POTASSIUM PHOSPHATE IV SCH ×9 (17:37)
[2017-03-26] MEDS: [UNRECOGNIZED DRUG - OTHER] IV SCH ×9 (17:37)
[2017-03-27] MEDS: 1/2 NS IV SOLUTION 1,000 ML IV SCH ×2 (02:24→04:11)
[2017-03-27 04:08] VITALS: BP 132/77
[2017-03-27] MEDS: fentaNYL INJECTION 100 MCG/2 ML AMP IV PRN ×6 (04:11→22:34)
[2017-03-27] MEDS: METOCLOPRAMIDE INJ 10 MG/2 ML (REGLAN) IVP SCH ×4 (06:01→23:39)
[2017-03-27 06:51] LABS: ALANINE AMINOTRANSFERASE 16 U/L (0-55); ALBUMIN 2.8 GM/DL (3.2-4.5); ALKALINE PHOSPHATASE 67 U/L (40-136); BILIRUBIN,TOTAL 0.5 MG/DL (0.1-1.0); BUN/CREATININE RATIO 29; CARBON DIOXIDE 29 MMOL/L (21-32); CHLORIDE 110 MMOL/L (98-107); CREATININE SERUM 0.85 MG/DL (0.60-1.30); GFR ESTIMATED > 60; GLUCOSE 98 MG/DL (70-105); MAGNESIUM 2.2 MG/DL (1.8-2.4); POTASSIUM 4.1 MMOL/L (3.6-5.0); SODIUM 146 MMOL/L (135-145); TOTAL PROTEIN 5.4 GM/DL (6.4-8.2); TRIGLYCERIDES 51 MG/DL (<150)
[2017-03-27] MEDS ORDERED: NS INJ ONE (07:46)
[2017-03-27] MEDS ORDERED: SODIUM PHOSPHATE INJ ONE (07:46)
[2017-03-27 08:00] VITALS: BP 175/75
[2017-03-27] MEDS: amLODIPine 5 MG (NORVASC) TAB PO SCH (08:54)
[2017-03-27] MEDS: meTOprolol TARTRATE 25 MG (LOPRESSOR) TABLET PO SCH ×2 (08:54→20:32)
[2017-03-27] MEDS: ARTIFICAL TEARS 0.4 ML UNIT DOSE (REFRESH PLUS) OU PRN (08:55)
--- NOTE | 2017-03-27 11:26 | Progress Note-Standard ---
Standard Progress Note Progress Notes/Assess & Plan Date Seen by Provider: Mar 27, 2017 Time Seen by Provider: 10:25 Progress/Assessment & Plan Clinical presentation and contrast studies confirmed established small bowel obstruction. It is therefore reasonable to proceed with exploration which may involve bowel resection. Central line will be placed to facilitate parenteral nutrition administration Reasonable postoperative recovery. Nasogastric output has decreased. Vital signs stable. Afebrile. Electrolytes normal. Patient reports as in flatus. Reasonable to use TPN in view of active nutrition for over a week Feeling nauseous. No abdominal distension. Incision dry. Will use reglan no new symptoms. No abdominal distention. Hypokalemia, will be replaced. temperature spikes up to 100.5 overnight. Nonproductive cough. Has had multiple loose bowel movements. Incision dry with no evidence of infection. Bilateral coarse crepitations contributing to fever. Reasonable to use antibiotics and manage on the lines of postoperative pneumonia. Encouraged better and consistent use of incentive spirometry. Final Diagnosis small bowel obstruction. Postoperative atelectasis. CHRISTINE RYDER MD Mar 27, 2017 11:26 am
[2017-03-27] MEDS ORDERED: LEVOFLOXACIN 500 MG/100 ML IV 100 ML ONE (12:07)
--- NOTE | 2017-03-27 12:10 | Progress Note-Hospitalist ---
Progress Note HPI/CC on Admission Pt is an 82yoCM with a PMH of HTN, BPH, and inguinal hernia repair who presented to the ER for severe abd pain. CT Abd showed bowel obstruction and he was admitted for further management. Progress Notes/Assess & Plan Date Seen 03/27/17 Time Seen by Provider: 11:00 Admission Dx/Process Patient doing well just slow to motivate Pain is controlled Reviewed labs Blood pressure still slightly elevated but just gave BP meds per RN Patient very debilitated and he lives at home alone so unsure how about work will likely need rehabilitation facility and given slow motivation likely inpatient rehabilitation here at [facility] would not meet his needs Bowel movement after mag citrate yesterday Dr. Dickerson thought that his lungs were coarse so mat protocol was initiated along with Rocephin No fever, vital stable except for mildly elevated blood pressure, very debilitated Regular rate and rhythm, clear to auscultation bilaterally but diminished breath sounds all moses No edema Noted bowel sounds Laboratory Tests 03/27/17 05:53 Assessment: Status post small bowel obstruction requiring surgery Hypertension [id number] Hypokalemia Hyperglycemia Chronic debility with slow motivation Ileus resolved Diminished lung sounds started mat protocol placed on Rocephin empirically per Dr Dickerson Plan: Pain control Physical therapy Out of bed Inpatient rehabilitation eval? Likely will need NHP IS MAT Diagnosis/Problems Diagnosis/Problems (1) Small bowel obstruction Status: Acute Assessment & Plan: status post evacuation of small bowel obstruction postop day # 2 (2) Essential (primary) hypertension Status: Chronic Assessment & Plan: Changed to Lopressor by mouth DC telemetry and added Norvasc (3) Acute renal insufficiency Status: Resolved Assessment & Plan: maintain gentle IV fluids Acute on chronic renal insufficiency ANN MARIE ROD DO Mar 27, 2017 12:10
[2017-03-27] MEDS ORDERED: RT-ALBUTEROL SULF 2.5 MG/3 ML PRE-MIX VIAL ONE (14:23)
[2017-03-27] MEDS ORDERED: RT-ALBUTEROL SULF 2.5 MG/3 ML PRE-MIX VIAL INH PRN (14:26)
[2017-03-27] MEDS ORDERED: RT-ALBUTEROL/IPRATROPIUM 3 ML (DUONEB) VIAL INH SCH (15:00)
[2017-03-27 16:00] VITALS: BP 168/80
[2017-03-27 17:01] VITALS: BP 168/80
[2017-03-27] MEDS: POTASSIUM CHLORIDE IV SCH ×9 (17:45)
[2017-03-27] MEDS: POTASSIUM PHOSPHATE IV SCH ×9 (17:45)
[2017-03-27] MEDS: [UNRECOGNIZED DRUG - OTHER] IV SCH ×9 (17:45)
[2017-03-27] MEDS: ENOXAPARIN 40 MG/0.4 ML (LOVENOX) SYR SC SCH (17:45)
[2017-03-27] MEDS: RT-ALBUTEROL/IPRATROPIUM 3 ML (DUONEB) VIAL INH SCH ×3 (20:03→23:15)
[2017-03-28] VITALS: BP 146/73
[2017-03-28] MEDS: fentaNYL INJECTION 100 MCG/2 ML AMP IV PRN ×3 (01:35→06:57)
[2017-03-28] MEDS: ONDANSETRON 4 MG/2 ML (SDV) Z0FRAN IV PRN ×2 (03:47→08:30)
[2017-03-28] MEDS: METOCLOPRAMIDE INJ 10 MG/2 ML (REGLAN) IVP SCH (06:40)
[2017-03-28] MEDS: RT-ALBUTEROL/IPRATROPIUM 3 ML (DUONEB) VIAL INH SCH ×2 (07:08→10:53)
[2017-03-28 07:10] LABS: ALANINE AMINOTRANSFERASE 20 U/L (0-55); ALBUMIN 2.7 GM/DL (3.2-4.5); ALKALINE PHOSPHATASE 61 U/L (40-136); BILIRUBIN,TOTAL 0.4 MG/DL (0.1-1.0); BUN/CREATININE RATIO 30; CARBON DIOXIDE 27 MMOL/L (21-32); CHLORIDE 109 MMOL/L (98-107); CREATININE SERUM 0.83 MG/DL (0.60-1.30); GFR ESTIMATED > 60; GLUCOSE 171 MG/DL (70-105); MAGNESIUM 2.3 MG/DL (1.8-2.4); PHOSPHORUS 2.6 MG/DL (2.3-4.7); POTASSIUM 4.1 MMOL/L (3.6-5.0); SODIUM 142 MMOL/L (135-145); TOTAL PROTEIN 5.4 GM/DL (6.4-8.2)
[2017-03-28 08:00] VITALS: BP 159/75
[2017-03-28] MEDS: amLODIPine 5 MG (NORVASC) TAB PO SCH (08:30)
[2017-03-28] MEDS: meTOprolol TARTRATE 25 MG (LOPRESSOR) TABLET PO SCH (08:30)
--- NOTE | 2017-03-28 09:18 | Physical Therapy Daily Note ---
PT Daily Note-Current Subjective Patient is very agreeable to participate with PT. No c/o at this time. Pain Numeric Pain Scale: 0-No Pain Location: No Pain Reported Mental Status Patient Orientation: Normal For Age Attachments: IV Transfers Functional [place] Measure 0=Not Assessed/NA 4=Minimal Assistance 1=Total Assistance 5=Supervision or Setup 2=Maximal Assistance 6=Modified [place] 3=Moderate Assistance 7=Complete IndependenceIRFPAI Quality Coding Scale 6 Independent with activity with or without an assistive device 5 Patient requires set up or clean up by helper. Patient completes activity by themselves 4 Supervision or touching assist (CGA). [place] provide cues , steadying assist 3 The helper provides less than half the effort to complete the activity 2 The helper provides more than half the effort to complete the activity 1 Dependent. 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 Patient much improved and is up in recliner with needs met. Patient reports he has FWW, power chair, etc. at home for use upon dismissal. PT Bobbin Disker Goals Bobbin Disker Goals PT Care Home Goals Time Frame: Apr 08, 2017 Transfers (B,C,W/C) (FIM): 6 Gait (FIM): 6 Gait distance (FIM): 3=150 ft Distance: 250' Gait Level of Assist: 6 Gait Assistive Device: FWW PT Plan Treatment/Plan Treatment Plan: Continue Plan of Care Treatment Plan: Bed Mobility, Education, Functional Activity Shamir, Functional Strength, Gait, Safety, Therapeutic Exercise, Transfers Treatment Duration: Apr 08, 2017 Frequency: 6 times per week Estimated Hrs Per Day: .25 hour per day Patient and/or Family Agrees t: Yes Time/GCodes Time In: 900 Time Out: 915 Total Billed Treatment Time: 15 Total Billed Treatment 1 visit FA 15 min ODESSA CHASE PT Mar 28, 2017 09:18
[2017-03-28] MEDS ORDERED: LEVOFLOXACIN 500 MG/100 ML IV 100 ML IV SCH (12:00)
[2017-03-28 14:05] LABS: BASOPHILS % (AUTO) 0 % (0-10); EOSINOPHILS # (AUTO) 0.3 10^3/uL (0.0-0.3); EOSINOPHILS % (AUTO) 3 % (0-10); HEMATOCRIT 33 % (40-54); LYMPHOCYTES % (AUTO) 10 % (12-44); MEAN CORPUSCULAR HEMOGLOBIN 33 PG (25-34); MEAN CORPUSCULAR HGB CONC 33 G/DL (32-36); MEAN CORPUSCULAR VOLUME 99 FL (80-99); MEAN PLATELET VOLUME 10.2 FL (7.4-10.4); MONOCYTES # (AUTO) 1.3 X 10^3 (0.0-1.0); MONOCYTES % (AUTO) 14 % (0-12); NEUTROPHILS # (AUTO) 7.1 X 10^3 (1.8-7.8); NEUTROPHILS % (AUTO) 72 % (42-75); PLATELET COUNT 250 10^3/uL (130-400); RED BLOOD COUNT 3.38 10^6/uL (4.35-5.85); RED CELL DISTRIBUTION WIDTH 13.7 % (10.0-14.5); WHITE BLOOD COUNT 9.8 10^3/uL (4.3-11.0)
--- NOTE | 2017-03-30 12:25 | Physician Query-General Query ---
Physician Query-General Query to Physician: Please clarify which sections of the intestines were removed and if they were partial or total resections. PHYSICIAN RESPONSE: Based on the clinical findings in the record, please respond to the query above on this document as an addendum. Possible, probable, or questionable diagnosis can be coded for INPATIENTS ONLY. Physician Response: Physician Response small bowel(ileum), complete resection If you have questions please contact: Operations Manager Station: [place] Ext: [phone] Thank you for your time and cooperation. Clinical Bagging Machine Operator/Operations Manager Station This is a permanent part of the medical record SHENA DAVENPORT Mar 30, 2017 12:25 CHRISTINE RYDER MD Mar 30, 2017 12:51
== END 2017-03-28 11:36 | disposition swing bed (61) | DRG 327 ==
LOC: EDUNIT# 08:35 → ER 08:36 → 4TH 11:30 → ICU 03-23 18:00 → 4TH 03-24 08:35
PROVIDERS: ADMIT Family Medicine; ATTEND Family Medicine
PROC: 0D9470Z Drainage of Esophagogastric Junction with Drainage Device, Via Natural or Artificial Opening (ICD-10-PCS; 2017-03-21)
PROC: 0DTB0ZZ Resection of Ileum, Open Approach (ICD-10-PCS; principal; 2017-03-23 15:10)
DX: K56.52 Intestinal adhesions [bands] with complete obstruction (principal); J98.11 Atelectasis; I12.9 Hypertensive chronic kidney disease with stage 1 through stage 4 chronic kidney disease, or unspecified chronic kidney disease; N40.0 Benign prostatic hyperplasia without lower urinary tract symptoms; K90.0 Celiac disease; M19.91 Primary osteoarthritis, unspecified site; Z89.512 Acquired absence of left leg below knee; Z66 Do not resuscitate; D64.9 Anemia, unspecified; E87.6 Hypokalemia; Z87.01 Personal history of pneumonia (recurrent); R73.9 Hyperglycemia, unspecified; N18.9 Chronic kidney disease, unspecified; Z86.010 Personal history of colon polyps; Z87.440 Personal history of urinary (tract) infections
CPT/HCPCS: 36415; 71045; 74176; 74250; 80048; 80053; 82962; 83605; 83690; 83735; 84100; 84134; 84478; 85025; 85027; 85610; 86141; 86850; 86900; 86901; 87081; 94640; 94664; 94760; 96361; 96374; 96375

== ENCOUNTER 2017-03-28 10:49 | Inpatient (IN) | payer MEDICARE, OTHER ==
[~2017-03-28] VITALS: Ht 175.3 cm; Wt 64.0 kg
[~2017-03-28 10:49] MED LIST changes: +ASPI-983 PO; +CARB10DR2 OU; +CYAN25003 SL; +CYCL1DRO OU; +DICL75TA2 PO; +ENAL10TA PO; +MINE3.5O4 OU; +MISO200T4 PO; +MULT-35 PO; +MULT1TAB80 PO; +POLY17PO6 PO; +POTA99TA21 PO; +SAW450CA7 PO; +TAMS0.4C2 PO; +TOLT2TAB5 PO
[2017-03-28] MEDS ORDERED: NITROGLYCERIN 2% OINT 1 GM UNIT DOSE PACKET TOP PRN (11:45)
[2017-03-28] MEDS ORDERED: ONDANSETRON 4 MG/2 ML (SDV) Z0FRAN IV PRN (11:45)
[2017-03-28] MEDS ORDERED: TPN IV SCH (11:45)
[2017-03-28] MEDS ORDERED: hydrALAZINE (APESOLINE) 20 MG/ML VIAL IV PRN (11:45)
[2017-03-28] MEDS ORDERED: ARTIFICAL TEARS 0.4 ML UNIT DOSE (REFRESH PLUS) OU PRN (11:45)
[2017-03-28] MEDS ORDERED: CATHETER FLUSH 10 ML SYR IV PRN (11:45)
[2017-03-28] MEDS ORDERED: RT-ALBUTEROL SULF 2.5 MG/3 ML PRE-MIX VIAL INH PRN (11:45)
--- NOTE | 2017-03-28 13:01 | Physical Therapy Evaluation ---
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 Patient Donns prosthesis independently Referral Physician: Larisa Reason for Referral: Evaluation/Treatment Medical History Pertinent Medical History: HTN Additional Medical History left BKA Current History s/p small bowel resection after 3 days of abdominal pain currently on TPN Reviewed History: Yes Social History Home: Single Level Current Living Status: Other Family Prior/[facility] Prior Level of Function Functional [place] Measure 0=Not Assessed/NA 4=Minimal Assistance 1=Total Assistance 5=Supervision or Setup 2=Maximal Assistance 6=Modified [place] 3=Moderate Assistance 7=Complete [place] Bed Mobility: 6 Transfers (B,C,W/C) (FIM): 6 Gait: 6 4WW, powerchair all at home PT Evaluation-Current Subjective Patient is very agreeable to PT. Pain Numeric Pain Scale: 0-No Pain Location: No Pain Reported Objective Patient Orientation: Normal For Age Problem Solving: Good Attachments: IV ROM/Strength ROM Lower Extremities left BKA WNL; right LE WNL Strenght Lower Extremities left knee flexion/extension 4/5; hip flexion 4/5 right knee flexion/extension 4/5; hip flexion 4/5; DF/PF 4/5 Integumentary/Posture Integumentary refer to nursing notes Bowel Incontinence: No Bladder Incontinence: No Posture kyphotic Neuromuscular (Tone, Coordination, Reflexes) grossly intact Sensory Vision: Wears Glasses Hearing: Functional Sensation Right Lower Extremit: Intact Sensation Left Lower Extremity: Intact Transfers Functional [place] Measure 0=Not Assessed/NA 4=Minimal Assistance 1=Total Assistance 5=Supervision or Setup 2=Maximal Assistance 6=Modified [place] 3=Moderate Assistance 7=Complete [place] Transfers (B, C, W/C) (FIM): 6 Scootin Rollin Supine to/from Sit: 6 Sit to/from Stand: 6 Sit to Lying (QC): 6 Lying to Sitting/Side of Bed(Q: 6 Sit to Stand (QC): 6 Chair/Coq-is-Axqpw Xfer(QC): 6 Gait Does the Patient Walk?: Yes Mode of Locomotion: Walk Anticipated Mode of Locomotion: Walk Gait (FIM): 6 Distance (FIM): 3=150 ft Distance: 450' Walk 50 ft with 2 Turns(QC): 6 Walk 150 ft (QC): 6 Gait Level of Assist: 6 Gait Assistive Device: FWW Comments/Gait Description safe, functional gait sequence with FWW Balance Sitting Static: Normal Sitting Dynamic: Normal Standing Static: Normal Standing Dynamic: Normal Treatment Patient Donns left prosthesis independently. Patient ambulates to restroom and toilets self independently. Patient Modified independent with ambulation with FWW x 450' with Good balance. Assessment/Needs 82 y.o. male, will benefit from short term skilled PT to address functional mobility to ensure safe return to home with family. Rehab Potential: Good PT Trapper Animal Goals Longterm Goals PT Trapper Animal Goals Time Frame: Apr 11, 2017 Transfers (B,C,W/C) (FIM): 6 Sit to Lying (QC): 6 Lying-Sitting on Side/Bed(QC): 6 Sit to Stand (QC): 6 Rollin Chair/Mjp-ua-Gbynb Xfer(QC): 6 Does the Patient Walk: Yes Gait (FIM): 6 Gait distance (FIM): 3=150 ft Distance: 500' Walk 50ft with 2 Turns (QC): 6 Walk 150 ft (QC): 6 Gait Assistive Device: FWW PT Plan Treatment/Plan Treatment Plan: Continue Plan of Care Treatment Plan: Education, Functional Activity Shamir, Functional Strength, Gait , Safety, Therapeutic Exercise Treatment Duration: Apr 11, 2017 Frequency: 6 times per week Estimated Hrs Per Day: .5 hour per day (or PRN) Patient and/or Family Agrees t: Yes Discharge Recommendations Therapy D/C Recommendations: Home w/ Family Support, Physical Therapy Home Care Time/GCodes Time In: 1205 Time Out: 1233 Total Billed Treatment Time: 28 Total Billed Treatment 1 visit EVModC 13 min FA 15 min ODESSA CHASE PT Mar 28, 2017 13:01
[2017-03-28] MEDS: METOCLOPRAMIDE INJ 10 MG/2 ML (REGLAN) IVP SCH ×3 (14:01→23:11)
[2017-03-28] MEDS: fentaNYL INJECTION 100 MCG/2 ML AMP IV PRN ×4 (14:02→23:11)
--- NOTE | 2017-03-28 14:53 | Occupational Therapy Eval ---
OT Evaluation-General/PLF Medical Diagnosis Admission Date Mar 28, 2017 at 12:09 Medical Diagnosis: small bowel obstruction Onset Date: Mar 21, 2017 Therapy Diagnosis Therapy Diagnosis: debility Height/Weight Height (Feet): 5 Height (Inches): 9.00 Weight (Pounds): 141 Weight (Ounces): 0.0 Precautions Precautions/Isolations: Standard Precautions Referral Physician: Larisa Medical History Pertinent Medical History: Arthritis, HTN Additional Medical History left BKA, BPH, inguinal hernia repair, celiac disease Current History pt s/p small bowel resection Reviewed History: Yes Social History Home: Single Level Current Living Status: Other Family Entry Into Home: Stairs Without Railing Steps Into Home: 2 ADL-Prior Level of Function ADL PLOF Comments Pt reports being independent with self care and mobility. Does not use any assistive devices. Pt states he is able to complete housework. DME/Equipment: Tub/Shower, Toilet/Riser Pt states he has access to tub bench and will use it when he goes home. Drive Self: Yes OT Current Status Subjective Pt sitting in chair, agrees to therapy. Mental Status/Objective Patient Orientation: Person, Place, Situation Attachments: IV Current Glasses/Contacts: Yes Hearing Aids: No Dentures/Partials: Yes (does not have them here) Hand Dominance: Right Upper Extremity ROM Grossly WFL Upper Extremity Coordination Intact Upper Extremity Strength Grossly functional ADL-Treatment ADL-Current Pt demonstrates ability to don left prosthesis without assistance. Sit to stand with modified independence. Gait to restroom with FWW, assist only for IV pole. Pt transferred to toilet with modified independence using grab bar. Pt requires SBA for standing balance while managing brief. Pt returned to chair with good balance using FWW. Pt sitting in chair with needs met after session. Functional [place] Measure 0=Not Assessed/NA 4=Minimal Assistance 1=Total Assistance 5=Supervision or Setup 2=Maximal Assistance 6=Modified [place] 3=Moderate Assistance 7=Complete IndependenceIRFPAI Quality Coding Scale 6 Independent with activity with or without an assistive device 5 Patient requires set up or clean up by helper. Patient completes activity by themselves 4 Supervision or touching assist (CGA). [place] provide cues , steadying assist 3 The helper provides less than half the effort to complete the activity 2 The helper provides more than half the effort to complete the activity 1 Dependent. The helper does all the effort to complete an activity 7 Patient refused to complete or attempt activity 9 The patient did not perform the activity before the current illness or injury 88 Not attempted due to Medical conditions or safety concerns Eating (FIM): 1 (Pt is currently on TPN. States he normally has no trouble feeding himself) Eating (QC): 1 Toileting (FIM): 5 Toileting Hygiene (QC): 5 Toilet/Commode Transfer (FIM): 6 Toilet Transfer (QC): 6 Education OT Patient Education: Rehab process Teaching Recipient: Patient Teaching Methods: Discussion Response to Teaching: Verbalize Understanding OT Short Term Goals Short Term Goals 1=Demonstrate adherence to instructed precautions during ADL tasks. 2=Patient will verbalize/demonstrate understanding of assistive devices/ modifications for ADL. 3=Patient will improve strength/tolerance for activity to enable patient to perform ADL's. OT Email Manager Goals Intermediate Goals Time Frame: Apr 11, 2017 Eating (FIM): 6 Eating (QC): 6 Groomin Oral Hygiene (QC): 6 Bathing(FIM): 5 Upper Body Dressing(FIM): 6 Lower Body Dressing(FIM): 6 Toileting(FIM): 6 Toileting Hygiene (QC): 6 Toilet/Commode Transfer(FIM): 6 Toilet/Commode Transfer (QC): 6 Additional Goals: 2-Verbalize Understanding, 3-ImproveStrength/Shamir 1=Demonstrate adherence to instructed precautions during ADL tasks. 2=Patient will verbalize/demonstrate understanding of assistive devices/ modifications for ADL. 3=Patient will improve strength/tolerance for activity to enable patient to perform ADL's. OT Education/Plan Problem List/Assessment Assessment: Decreased UE Strength, Dependent Transfers, Impaired Self-Care Skills Pt to benefit from skilled OT intervention for ADL training, transfers, strengthening, and home safety education to maximize level of function and allow safe discharge home. Discharge Recommendations Plan/Recommendations: Continue POC Treatment Plan/Plan of Care Treatment,Training & Education: Yes Patient would benefit from OT for education, treatment and training to promote independence in ADL's, mobility, safety and/or upper extremity function for ADL' s. Plan of Care: ADL Retraining, Functional Mobility, UE Funct Exercise/Act Treatment Duration: Apr 11, 2017 Frequency: 5 times per week Estimated Hrs Per Day: .25 hour per day Agreement: Yes Rehab Potential: Good Time/GCodes Start Time: 14:22 Stop Time: 14:45 Total Time Billed (hr/min): 23 Billed Treatment Time 1 visit, EVL(8minutes), ADL(15minutes) AUDREY BRADLEY OT Mar 28, 2017 14:53
[2017-03-28] MEDS: RT-ALBUTEROL/IPRATROPIUM 3 ML (DUONEB) VIAL INH SCH ×3 (14:56→22:03)
--- NOTE | 2017-03-28 15:12 | Progress Note-Standard ---
Standard Progress Note Progress Notes/Assess & Plan Date Seen by Provider: Mar 28, 2017 Time Seen by Provider: 15:12 Progress/Assessment & Plan continues to improve. Passing stools. Afebrile. Bilateral fine crepitations in the lungs. We'll continue IV antibiotics and bronchodilator therapy. Final Diagnosis small bowel obstruction CHRISTINE RYDER MD Mar 28, 2017 15:12
[2017-03-28] MEDS ORDERED: POTASSIUM PHOSPHATE IV SCH ×9 (17:00)
[2017-03-28] MEDS ORDERED: [UNRECOGNIZED DRUG - OTHER] IV SCH ×9 (17:00)
[2017-03-28] MEDS ORDERED: POTASSIUM CHLORIDE IV SCH ×9 (17:00)
[2017-03-28] MEDS: ENOXAPARIN 40 MG/0.4 ML (LOVENOX) SYR SC SCH (17:25)
[2017-03-28 18:00] VITALS: BP 166/80
[2017-03-28] MEDS: meTOprolol TARTRATE 25 MG (LOPRESSOR) TABLET PO SCH (21:10)
[2017-03-29] MEDS: fentaNYL INJECTION 100 MCG/2 ML AMP IV PRN ×4 (01:44→14:13)
[2017-03-29] MEDS: RT-ALBUTEROL/IPRATROPIUM 3 ML (DUONEB) VIAL INH SCH ×6 (04:15→23:00)
[2017-03-29] MEDS: METOCLOPRAMIDE INJ 10 MG/2 ML (REGLAN) IVP SCH (05:22)
[2017-03-29 06:10] VITALS: BP 176/82
[2017-03-29] MEDS: meTOprolol TARTRATE 25 MG (LOPRESSOR) TABLET PO SCH ×2 (08:23→21:14)
[2017-03-29] MEDS: LEVOFLOXACIN 500 MG/100 ML IV 100 ML IV SCH (08:23)
[2017-03-29] MEDS: amLODIPine 5 MG (NORVASC) TAB PO SCH (08:23)
--- NOTE | 2017-03-29 10:03 | Progress Note-Standard ---
Standard Progress Note Progress Notes/Assess & Plan Date Seen by Provider: Mar 29, 2017 Time Seen by Provider: 10:02 Progress/Assessment & Plan continues to improve. Passing stools. Afebrile. Bilateral fine crepitations in the lungs. We'll continue IV antibiotics and bronchodilator therapy. Afebrile and having bowel movements. Could stop TPN Final Diagnosis Small bowel obstruction CHRISTINE RYDER MD Mar 29, 2017 10:03 am
--- NOTE | 2017-03-29 11:18 | Physical Therapy Daily Note ---
PT Daily Note-Current Subjective Patient agrees to PT. No c/o. He reports he is eating regular food and will go home this week. Pain Numeric Pain Scale: 0-No Pain Location: No Pain Reported Mental Status Patient Orientation: Normal For Age Transfers Functional [place] Measure 0=Not Assessed/NA 4=Minimal Assistance 1=Total Assistance 5=Supervision or Setup 2=Maximal Assistance 6=Modified [place] 3=Moderate Assistance 7=Complete IndependenceIRFPAI Quality Coding Scale 6 Independent with activity with or without an assistive device 5 Patient requires set up or clean up by helper. Patient completes activity by themselves 4 Supervision or touching assist (CGA). [place] provide cues , steadying assist 3 The helper provides less than half the effort to complete the activity 2 The helper provides more than half the effort to complete the activity 1 Dependent. The helper does all the effort to complete an activity 7 Patient refused to complete or attempt activity 9 The patient did not perform the activity before the current illness or injury 88 Not attempted due to Medical conditions or safety concerns Transfers (B, C, W/C) (FIM): 6 Scootin Roll Left to Right (QC): 6 Supine to/from Sit: 6 Sit to/from Stand: 6 Sit to Lying (QC): 6 Sit to Stand (QC): 6 Weight Bearing Right Lower Extremity: Right Full Weight Bearing Left Lower Extremity: Left Weight Bearing/Tolerated pt is a left BKA and has prosthesis at bedside Patient Donns prosthesis independently Gait Training Does the Patient Walk?: Yes Gait (FIM): 6 Distance: 300' x 2 Walk 50 ft with 2 Turns(QC): 6 Walk 150 ft (QC): 6 Gait Level of Assist: 6 Gait Assistive Device: FWW safe and functional. When not connected to IV, has been instructed to ambulate PRN in hallway. Patient Donns left prosthesis independently. Exercises Supine Ex: Ankle pumps (right), Quad Set, Heel Slides, Straight leg raise Supine Reps: 20 Seated Therapy Exercises: Long arc quads Seated Reps: 25 Assessment Patient returned to bed with needs met. Patient is currently at [facility] with gross motor skills and will dismiss to home this week. PT Senior Care Goals Senior Care Goals PT Lithoplate Maker Goals Time Frame: Apr 11, 2017 Transfers (B,C,W/C) (FIM): 6 Sit to Lying (QC): 6 Lying-Sitting on Side/Bed(QC): 6 Sit to Stand (QC): 6 Rollin Chair/Cmg-yp-Yimgl Xfer(QC): 6 Does the Patient Walk: Yes Gait (FIM): 6 Gait distance (FIM): 3=150 ft Distance: 500' Walk 50ft with 2 Turns (QC): 6 Walk 150 ft (QC): 6 Gait Assistive Device: FWW PT Plan Treatment/Plan Treatment Plan: Continue Plan of Care Treatment Plan: Education, Functional Activity Shamir, Functional Strength, Gait , Safety, Therapeutic Exercise Treatment Duration: Apr 11, 2017 Frequency: 6 times per week Estimated Hrs Per Day: .5 hour per day (or PRN) Patient and/or Family Agrees t: Yes Time/GCodes Time In: 1050 Time Out: 1113 Total Billed Treatment Time: 23 Total Billed Treatment 1 visit EX 10 min FA 13 min ODESSA CHASE PT Mar 29, 2017 11:18
[2017-03-29] MEDS: HYDROcodone/APAP 5 MG/325 MG (LORTAB) TAB PO PRN ×2 (11:35→22:17)
--- NOTE | 2017-03-29 11:58 | Occupational Ther Daily Note ---
OT Current Status-Daily Note Subjective Pt in bed, states he's had a busy morning and just returned to bed after working with PT. Pt states he is now able to eat solid food. Pt reports 5/10 abdominal pain. Mental Status/Objective Functional [place] Measure 0=Not Assessed/NA 4=Minimal Assistance 1=Total Assistance 5=Supervision or Setup 2=Maximal Assistance 6=Modified [place] 3=Moderate Assistance 7=Complete [place] Attachments: IV ADL-Treatment Pt states he had a shower this morning with assist from nursing. Pt states he was able to complete most of task by himself. Functional [place] Measure 0=Not Assessed/NA 4=Minimal Assistance 1=Total Assistance 5=Supervision or Setup 2=Maximal Assistance 6=Modified [place] 3=Moderate Assistance 7=Complete IndependenceIRFPAI Quality Coding Scale 6 Independent with activity with or without an assistive device 5 Patient requires set up or clean up by helper. Patient completes activity by themselves 4 Supervision or touching assist (CGA). [place] provide cues , steadying assist 3 The helper provides less than half the effort to complete the activity 2 The helper provides more than half the effort to complete the activity 1 Dependent. The helper does all the effort to complete an activity 7 Patient refused to complete or attempt activity 9 The patient did not perform the activity before the current illness or injury 88 Not attempted due to Medical conditions or safety concerns Other Treatment Pt states he is fatigued from morning's activity and just returned to bed. Agrees to UE activity while in bed. Pt performed bilateral UE exercises to promote increased strength and activity tolerance needed for ADLs and transfers. Pt performed AROM x15 reps at all joints. Pt has good participation in exercises and only requires occasional rest breaks. Pt resting in bed with needs met after session. OT Short Term Goals Short Term Goals 1=Demonstrate adherence to instructed precautions during ADL tasks. 2=Patient will verbalize/demonstrate understanding of assistive devices/ modifications for ADL. 3=Patient will improve strength/tolerance for activity to enable patient to perform ADL's. OT Snf Goals Immigration Lawyer Goals Time Frame: Apr 11, 2017 Eating (FIM): 6 Eating (QC): 6 Groomin Oral Hygiene (QC): 6 Bathing(FIM): 5 Upper Body Dressing(FIM): 6 Lower Body Dressing(FIM): 6 Toileting(FIM): 6 Toileting Hygiene (QC): 6 Toilet/Commode Transfer(FIM): 6 Toilet/Commode Transfer (QC): 6 Additional Goals: 2-Verbalize Understanding, 3-ImproveStrength/Shamir 1=Demonstrate adherence to instructed precautions during ADL tasks. 2=Patient will verbalize/demonstrate understanding of assistive devices/ modifications for ADL. 3=Patient will improve strength/tolerance for activity to enable patient to perform ADL's. OT Education/Plan Problem List/Assessment Pt to benefit from skilled OT intervention for ADL training, transfers, strengthening, and home safety education to maximize level of function and allow safe discharge home. Discharge Recommendations Plan/Recommendations: Continue POC Treatment Plan/Plan of Care Patient would benefit from OT for education, treatment and training to promote independence in ADL's, mobility, safety and/or upper extremity function for ADL' s. Plan of Care: ADL Retraining, Functional Mobility, UE Funct Exercise/Act Treatment Duration: Apr 11, 2017 Frequency: 5 times per week Estimated Hrs Per Day: .25 hour per day Agreement: Yes Rehab Potential: Good Time/GCodes Start Time: 11:12 Stop Time: 11:27 Total Time Billed (hr/min): 15 Billed Treatment Time 1 visit, EX(15minutes) AUDREY BRADLEY OT Mar 29, 2017 11:58
[2017-03-29 15:55] VITALS: BP 143/70
[2017-03-29] MEDS: ENOXAPARIN 40 MG/0.4 ML (LOVENOX) SYR SC SCH (17:54)
[2017-03-29 19:35] VITALS: BP 143/65
[2017-03-29 23:36] VITALS: BP 136/70
[2017-03-30] MEDS: RT-ALBUTEROL/IPRATROPIUM 3 ML (DUONEB) VIAL INH SCH ×3 (02:14→10:22)
[2017-03-30] MEDS: HYDROcodone/APAP 5 MG/325 MG (LORTAB) TAB PO PRN ×2 (03:14→14:26)
[2017-03-30 06:08] VITALS: BP 154/75
[2017-03-30] MEDS: amLODIPine 5 MG (NORVASC) TAB PO SCH (08:43)
[2017-03-30] MEDS: meTOprolol TARTRATE 25 MG (LOPRESSOR) TABLET PO SCH (08:43)
[2017-03-30] MEDS: LEVOFLOXACIN 500 MG/100 ML IV 100 ML IV SCH (08:43)
--- NOTE | 2017-03-30 10:12 | Physical Therapy Daily Note ---
PT Daily Note-Current Subjective Patient agrees to PT. Pain Numeric Pain Scale: 0-No Pain Location: No Pain Reported Mental Status Patient Orientation: Normal For Age Transfers Functional [place] Measure 0=Not Assessed/NA 4=Minimal Assistance 1=Total Assistance 5=Supervision or Setup 2=Maximal Assistance 6=Modified [place] 3=Moderate Assistance 7=Complete IndependenceIRFPAI Quality Coding Scale 6 Independent with activity with or without an assistive device 5 Patient requires set up or clean up by helper. Patient completes activity by themselves 4 Supervision or touching assist (CGA). [place] provide cues , steadying assist 3 The helper provides less than half the effort to complete the activity 2 The helper provides more than half the effort to complete the activity 1 Dependent. The helper does all the effort to complete an activity 7 Patient refused to complete or attempt activity 9 The patient did not perform the activity before the current illness or injury 88 Not attempted due to Medical conditions or safety concerns Transfers (B, C, W/C) (FIM): 6 Scootin Roll Left to Right (QC): 6 Supine to/from Sit: 6 Sit to/from Stand: 6 Sit to Lying (QC): 6 Sit to Stand (QC): 6 Weight Bearing Right Lower Extremity: Right Full Weight Bearing Left Lower Extremity: Left Weight Bearing/Tolerated pt is a left BKA and has prosthesis at bedside Patient Donns prosthesis independently Gait Training Does the Patient Walk?: Yes Gait (FIM): 6 Distance (FIM): 3=150 ft Distance: 400' Walk 50 ft with 2 Turns(QC): 6 Walk 150 ft (QC): 6 Gait Level of Assist: 6 Gait Assistive Device: FWW safe and functional; has been instructed to ambulate PRN in hallway Exercises Seated Therapy Exercises: Ankle pumps, Long arc quads Seated Reps: 25 Assessment Patient donns left prosthesis independently and is currently at [facility] with all gross motor skills. Patient will dismiss to home this week. PT Fdc Goals Fdc Goals PT Fdc Goals Time Frame: Apr 11, 2017 Transfers (B,C,W/C) (FIM): 6 Sit to Lying (QC): 6 Lying-Sitting on Side/Bed(QC): 6 Sit to Stand (QC): 6 Rollin Chair/Hvy-fs-Kpgcp Xfer(QC): 6 Does the Patient Walk: Yes Gait (FIM): 6 Gait distance (FIM): 3=150 ft Distance: 500' Walk 50ft with 2 Turns (QC): 6 Walk 150 ft (QC): 6 Gait Assistive Device: FWW PT Plan Treatment/Plan Treatment Plan: Continue Plan of Care Treatment Plan: Education, Functional Activity Shamir, Functional Strength, Gait , Safety, Therapeutic Exercise Treatment Duration: Apr 11, 2017 Frequency: 6 times per week Estimated Hrs Per Day: .5 hour per day (or PRN) Patient and/or Family Agrees t: Yes Discharge Recommendations Therapy D/C Recommendations: Home w/ Family Support, Physical Therapy Home Care Time/GCodes Time In: 950 Time Out: 1005 Total Billed Treatment Time: 15 Total Billed Treatment 1 visit FA 15 min ODESSA CHASE PT Mar 30, 2017 10:12
--- NOTE | 2017-03-30 11:39 | Progress Note-Hospitalist ---
Progress Note Progress Notes/Assess & Plan Date Seen 03/30/17 Time Seen by Provider: 10:00 Diagonsis/Assessment & Plan Patient doing much better and up and around and had a shower and shave so he feels great Working with physical therapy with walker and is doing very well Has advanced his diet in pain is well-controlled Using incentive spirometer and doing well No fever, vital signs stable, pleasant, improved, walking with walker in room with physical therapy Regular rate and rhythm, clear to auscultation bilaterally much improved excursion No edema Assessment: Small bowel obstruction status post surgical resolution now advancing diet and doing well ileus is resolved Chronic debility but much improved Plan: Disposition per surgeon Needs home health at discharge Doing well ANN MARIE ROD DO Mar 30, 2017 11:39
--- NOTE | 2017-03-30 12:44 | Progress Note-Standard ---
Standard Progress Note Progress Notes/Assess & Plan Date Seen by Provider: Mar 30, 2017 Time Seen by Provider: 12:44 Progress/Assessment & Plan continues to improve. Passing stools. Afebrile. Bilateral fine crepitations in the lungs. We'll continue IV antibiotics and bronchodilator therapy. Afebrile and having bowel movements. Could stop TPN Doing well and could be discharged Final Diagnosis Small bowel obstruction CHRISTINE RYDER MD Mar 30, 2017 12:44 pm
[2017-03-30] MEDS ORDERED: ACHD5005 PO ×2 (12:45)
--- NOTE | 2017-03-30 12:46 | Discharge Inst-Simple/Standard ---
Discharge Inst-Standard Discharge Medications New, Converted or Re-Newed RX: RX on Chart Patient Instructions/Follow Up Plan of Care/Instructions/FU: Please remove the central line. F/U in 3 weeks Activity as Tolerated: No Goal: No lifting over 20 lb Discharge Diet: No Restrictions CHRISTINE RYDER MD Mar 30, 2017 12:46 pm
--- NOTE | 2017-03-30 12:49 | Discharge Summary ---
Diagnosis/Chief Complaint Date of Admission Mar 28, 2017 at 12:09 pm Date of Discharge 03/30/17 Discharge Date: Mar 30, 2017 Discharge Time: 12:47 Admission Diagnosis Admission Diagnosis Small bowel obstruction Discharge Diagnosis Small bowel obstruction due to an adhesive band Reason Hospital Visit Clinical features of small bowel obstruction, eventually requiring small bowel resection Discharge Summary Procedures Laparotomy and small bowel resection on 03/23/17, satisfactory recovery. Consultations Hospitalist service Discharge Physical Examination Allergies: Coded Allergies: Sulfa (Sulfonamide Antibiotics) (Unverified Allergy, Severe, 03/23/17) gluten (Verified Allergy, Intermediate, 03/29/17) history of celiac disease. cephalexin (Verified Adverse Reaction, Severe, NAUSEA/DIARRHEA, 03/23/17) clindamycin (Verified Adverse Reaction, Severe, NAUSEA/DIARRHEA, 03/23/17) Vitals & I&Os Vital Signs Date Time Temp Pulse Resp B/P (MAP) Pulse Ox O2 Delivery O2 Flow Rate FiO2 03/30/17 10:22 98 Room Air 03/30/17 06:08 98.6 90 16 154/75 (101) Hospital Course Labs (last 24 hrs) Laboratory Tests 03/29/17 05:50: Glucometer 128H Pending Labs Laboratory Tests 03/29/17 05:50: Glucometer 128 Discharge Home Medications: Active Scripts Active Hydrocodone/Acetaminophen 5/325mg Tablet (Acetaminophen/Hydrocodone Bitart) 1 Tab Tab 1-2 Tab PO 4-6HR PRN Reported Aspirin EC (Aspirin) 81 Mg Tablet.dr 81 Mg PO DAILY Refresh Optive Gel Eye Drops (Carboxymethylcellulos/Glycerin) 10 Ml Drops.gel 1 Drop OU BID PRN Systane Nighttime Eye Oint (Mineral Oil/Petrolatum,White) 3.5 Gm Oint...g. OU HS Miralax (Polyethylene Glycol 3350) 17 Gm Powd.pack 17 Gm PO DAILY PRN Potassium (Potassium Gluconate) 99 Mg Tablet 99 Mg PO DAILY PRN Vitamin B-12 (Cyanocobalamin (Vitamin B-12)) 2,500 Mcg Tab.subl 2,500 Mcg SL DAILY Daily Multiple Vitamin (Multivitamin) 1 Each Tablet 1 Tab PO DAILY I-Nader Tablet (Vit A,C & E/Lutein/Minerals) 1 Each Tablet 1 Tab PO DAILY Enalapril Maleate 10 Mg Tablet 20 Mg PO DAILY LAST FILLED #180 08-11-16 TAKES 2 (10MG) TABLETS Diclofenac Sodium 75 Mg Tablet.dr 75 Mg PO DAILY Misoprostol 200 Mcg Tablet 100 Mcg PO DAILY TAKES 1/2 (200MCG) TABLET Saw Martinez (Saw Martinez Fruit) 450 Mg Capsule 450 Mg PO DAILY Restasis (Cyclosporine) 1 Each Droperette 1 Drop OU BID Tolterodine Tartrate 2 Mg Tablet 2 Mg PO DAILY Tamsulosin HCl 0.4 Mg Cap.er.24h 0.4 Mg PO 1730 LAST FILLED #30 01-13-17 Instructions to patient/family Please see electronic discharge instructions given to patient. Clinical Quality Measures DVT/VTE Risk/Contraindication: Risk Factor Score Per Nursin CHRISTINE RYDER MD Mar 30, 2017 12:49 pm
--- NOTE | 2017-03-30 13:53 | Therapy Team Discharge Summary ---
Therapy Discharge Summary Discharge Recommendations Date of Discharge Therapy D/C Recommendations: Home w/ Family Support, Physical Therapy Home Care Physical Therapy Patient initially limited with mobility due to abdominal pain and weakness. Patient has progress by demonstrating the ability to rosetta and doff his left BKA prosthesis independently and ambulates and performs bed mobility/transfers modified independently and will return to home safely with family. Patient has attained all gross motor goals. Occupational Therapy Decreased UE Strength, Dependent Transfers, Impaired Self-Care Skills PT Chcf Goals Marker Machine Attendant Goals PT Chcf Goals Time Frame: Apr 11, 2017 Transfers (B,C,W/C) (FIM): 6 (met 03/30/17) Sit to Lying (QC): 6 (met 03/30/17) Lying-Sitting on Side/Bed(QC): 6 (met 03/30/17) Sit to Stand (QC): 6 (met 03/30/17) Rollin (met 03/30/17) Chair/Luy-kh-Ihvtj Xfer(QC): 6 (met 03/30/17) Does the Patient Walk: Yes Gait (FIM): 6 (met 03/30/17) Gait distance (FIM): 3=150 ft Distance: 500' Walk 50ft with 2 Turns (QC): 6 (met 03/30/17) Walk 150 ft (QC): 6 (met 03/30/17) Gait Assistive Device: FWW OT [facility] Goals Marker Machine Attendant Goals Time Frame: Apr 11, 2017 Eating (FIM): 6 Eating (QC): 6 Groomin Oral Hygiene (QC): 6 Bathing(FIM): 5 Upper Body Dressing(FIM): 6 Lower Body Dressing(FIM): 6 Toileting(FIM): 6 Toileting Hygiene (QC): 6 Toilet/Commode Transfer(FIM): 6 Toilet/Commode Transfer (QC): 6 Additional Goals: 2-Verbalize Understanding, 3-ImproveStrength/Shamir 1=Demonstrate adherence to instructed precautions during ADL tasks. 2=Patient will verbalize/demonstrate understanding of assistive devices/ modifications for ADL. 3=Patient will improve strength/tolerance for activity to enable patient to perform ADL's. ODESSA CHASE PT Mar 30, 2017 13:53
--- NOTE | 2017-03-30 14:16 | Occupational Ther Daily Note ---
OT Current Status-Daily Note Subjective "I will do whatever you need me to do." Pain Numeric Pain Scale: 0-No Pain Appearance Patient supine in bed when OT entered the room. Agreeable to therapy. Mental Status/Objective Patient Orientation: Person, Place, Situation Functional [place] Measure 0=Not Assessed/NA 4=Minimal Assistance 1=Total Assistance 5=Supervision or Setup 2=Maximal Assistance 6=Modified [place] 3=Moderate Assistance 7=Complete [place] ADL-Treatment Patient agreeable to sponge bath today, stating he had a shower yesterday. Completed bath with set up provided by OT without assistance just direction in the use of the bath sponges. Dressed self in pull up and 2 hospital gowns. Donned the prothesis for the left lower leg and transferred to the chair to then order lunch independently. Reported he was using the walker in the room and out in the hallway independently. At home, he walks without the walker. Pleasant and cooperative. Reports he is leaving soon to return home where his daughter will assist him. Functional [place] Measure 0=Not Assessed/NA 4=Minimal Assistance 1=Total Assistance 5=Supervision or Setup 2=Maximal Assistance 6=Modified [place] 3=Moderate Assistance 7=Complete IndependenceIRFPAI Quality Coding Scale 6 Independent with activity with or without an assistive device 5 Patient requires set up or clean up by helper. Patient completes activity by themselves 4 Supervision or touching assist (CGA). [place] provide cues , steadying assist 3 The helper provides less than half the effort to complete the activity 2 The helper provides more than half the effort to complete the activity 1 Dependent. The helper does all the effort to complete an activity 7 Patient refused to complete or attempt activity 9 The patient did not perform the activity before the current illness or injury 88 Not attempted due to Medical conditions or safety concerns OT Short Term Goals Short Term Goals 1=Demonstrate adherence to instructed precautions during ADL tasks. 2=Patient will verbalize/demonstrate understanding of assistive devices/ modifications for ADL. 3=Patient will improve strength/tolerance for activity to enable patient to perform ADL's. OT Back Winder Goals Chcf Goals Time Frame: Apr 11, 2017 Eating (FIM): 6 Eating (QC): 6 Groomin Oral Hygiene (QC): 6 Bathing(FIM): 5 Upper Body Dressing(FIM): 6 Lower Body Dressing(FIM): 6 Toileting(FIM): 6 Toileting Hygiene (QC): 6 Toilet/Commode Transfer(FIM): 6 Toilet/Commode Transfer (QC): 6 Additional Goals: 2-Verbalize Understanding, 3-ImproveStrength/Shamir 1=Demonstrate adherence to instructed precautions during ADL tasks. 2=Patient will verbalize/demonstrate understanding of assistive devices/ modifications for ADL. 3=Patient will improve strength/tolerance for activity to enable patient to perform ADL's. OT Education/Plan Problem List/Assessment Pt to benefit from skilled OT intervention for ADL training, transfers, strengthening, and home safety education to maximize level of function and allow safe discharge home. Discharge Recommendations Plan/Recommendations: Continue POC Treatment Plan/Plan of Care Patient would benefit from OT for education, treatment and training to promote independence in ADL's, mobility, safety and/or upper extremity function for ADL' s. Plan of Care: ADL Retraining, Functional Mobility, UE Funct Exercise/Act Treatment Duration: Apr 11, 2017 Frequency: 5 times per week Estimated Hrs Per Day: .25 hour per day Agreement: Yes Rehab Potential: Good Time/GCodes Start Time: 11:45 Stop Time: 12:20 Total Time Billed (hr/min): 35 Billed Treatment Time Visit, ADL x 2 PRICILA KING OT Mar 30, 2017 14:16
[2017-03-30 16:45] VITALS: BP 154/75
== END 2017-03-30 14:45 | disposition home or self-care (01) | DRG 389 ==
LOC: 4TH 12:09
PROVIDERS: ADMIT Internal Medicine; ATTEND Internal Medicine
DX: K56.52 Intestinal adhesions [bands] with complete obstruction (principal); J98.11 Atelectasis; I12.9 Hypertensive chronic kidney disease with stage 1 through stage 4 chronic kidney disease, or unspecified chronic kidney disease; N40.0 Benign prostatic hyperplasia without lower urinary tract symptoms; K90.0 Celiac disease; M19.91 Primary osteoarthritis, unspecified site; Z89.512 Acquired absence of left leg below knee; Z66 Do not resuscitate; R53.81 Other malaise; D64.9 Anemia, unspecified; E87.6 Hypokalemia; Z87.01 Personal history of pneumonia (recurrent); R73.9 Hyperglycemia, unspecified; N18.9 Chronic kidney disease, unspecified; Z86.010 Personal history of colon polyps; Z87.440 Personal history of urinary (tract) infections
CPT/HCPCS: 82962; 94640; 94760

== ENCOUNTER 2017-04-08 09:31 | Emergency (ER) | payer MEDICARE, OTHER ==
[~2017-04-08] VITALS: Ht 175.3 cm; Wt 63.5 kg
[~2017-04-08 09:31] MED LIST changes: +ACHD5005 PO
[2017-04-08 10:26] LABS: BILIRUBIN,URINE NEGATIVE (NEGATIVE); CLARITY,URINE CLEAR; COLOR,URINE YELLOW; GLUCOSE, URINE (UA) NEGATIVE (NEGATIVE); KETONES,URINE NEGATIVE (NEGATIVE); LEUKOCYTE ESTERASE ,URINE 2+ (NEGATIVE); NITRITE,URINE POSITIVE (NEGATIVE); PH,URINE 7 (5-9); PROTEIN,URINE 2+ (NEGATIVE); UROBILINOGEN,URINE NORMAL (NORMAL)
[2017-04-08 10:43] LABS: BASOPHILS % (AUTO) 0 % (0-10); EOSINOPHILS # (AUTO) 0.2 10^3/uL (0.0-0.3); EOSINOPHILS % (AUTO) 2 % (0-10); HEMATOCRIT 30 % (40-54); LYMPHOCYTES # (AUTO) 1.2 X 10^3 (1.0-4.0); LYMPHOCYTES % (AUTO) 13 % (12-44); MEAN CORPUSCULAR HEMOGLOBIN 33 PG (25-34); MEAN CORPUSCULAR HGB CONC 33 G/DL (32-36); MEAN CORPUSCULAR VOLUME 98 FL (80-99); MEAN PLATELET VOLUME 9.4 FL (7.4-10.4); MONOCYTES # (AUTO) 0.9 X 10^3 (0.0-1.0); MONOCYTES % (AUTO) 9 % (0-12); NEUTROPHILS # (AUTO) 7.4 X 10^3 (1.8-7.8); NEUTROPHILS % (AUTO) 75 % (42-75); PLATELET COUNT 543 10^3/uL (130-400); RED BLOOD COUNT 3.07 10^6/uL (4.35-5.85); RED CELL DISTRIBUTION WIDTH 14.1 % (10.0-14.5); WHITE BLOOD COUNT 9.8 10^3/uL (4.3-11.0)
[2017-04-08] MEDS ORDERED: fentaNYL INJECTION 100 MCG/2 ML AMP IVP ONE (10:45)
[2017-04-08 10:48] LABS: BACTERIA,URINE LARGE /HPF
[2017-04-08 10:54] LABS: ALANINE AMINOTRANSFERASE 22 U/L (0-55); ALBUMIN 3.2 GM/DL (3.2-4.5); ALKALINE PHOSPHATASE 86 U/L (40-136); BILIRUBIN,TOTAL 0.4 MG/DL (0.1-1.0); BUN/CREATININE RATIO 29; CALCIUM 8.8 MG/DL (8.5-10.1); CARBON DIOXIDE 29 MMOL/L (21-32); CHLORIDE 105 MMOL/L (98-107); CREATININE SERUM 0.91 MG/DL (0.60-1.30); GFR ESTIMATED > 60; GLUCOSE 89 MG/DL (70-105); LIPASE 58 U/L (8-78); POTASSIUM 4.5 MMOL/L (3.6-5.0); SODIUM 141 MMOL/L (135-145); TOTAL PROTEIN 6.5 GM/DL (6.4-8.2)
[2017-04-08] MEDS ORDERED: IOHEXOL 350 MG/ML 100 ML (OMNIPAQUE 350) VIAL IV ONE (11:45)
[2017-04-08] MEDS ORDERED: NS 100 ML (IVPB) BAG IV ONE (11:45)
--- NOTE | 2017-04-08 12:10 | Diagnostic Imaging Report ---
PROCEDURE: CT abdomen and pelvis with contrast. TECHNIQUE: Multiple contiguous axial images were obtained through the abdomen and pelvis after administration of intravenous contrast. INDICATION: Left flank pain. The patient was status post abdominal surgery and partial bowel resection two weeks ago. COMPARISON: Comparison is made with prior CT from 03/21/2017. FINDINGS: The lung bases are clear. No discrete liver mass is identified. Gallbladder is unremarkable. The pancreas and spleen are unremarkable. There is some fluid surrounding the spleen measuring to a thickness of approximately 2 cm. This does show some slight increased density and this may represent small subcapsular hematoma. No gas within the collection is identified. No adrenal masses detected. Kidneys are unremarkable. Aorta is heavily calcified but nonaneurysmal. The visualized small and large bowel loops are decompressed on today's study, without evidence of obstruction. No free fluid in the abdomen is identified. The bladder shows generalized wall thickening which may be in part owing to incomplete distention. IMPRESSION: Postsurgical changes to the abdomen. There is no evidence of recurrent bowel obstruction. There does appear to be some fluid surrounding the spleen, perhaps in a subcapsular location. This may represent subcapsular hematoma, perhaps postsurgical in nature. The remainder of the study is unremarkable. Dictated by: Dictated on workstation # [id number]
[2017-04-08] MEDS ORDERED: CIPR-225 PO (13:15)
[2017-04-08] MEDS ORDERED: ACHD5005 PO (13:15)
--- NOTE | 2017-04-08 13:15 | ED Abdominal Pain ---
General Chief Complaint: Abdominal/GI Problems Stated Complaint: ABD PAIN Nursing Triage Note: c/o left flank pain. Onset this morning. Hx of colectomy on 03-30-17. Sepsis Screen: No Definite Risk Source of Information: Patient, Old Records Exam Limitations: No Limitations History of Present Illness Date Seen by Provider: Apr 08, 2017 Time Seen by Provider: 10:05 Initial Comments This 82-year-old gentleman presents to the emergency room with severe left flank pain that started this morning after eating breakfast. He had a small bowel resection due to small bowel obstruction about a week ago. His surgeon is Dr. Ryder and his primary care provider is Dr. Natarajan. He denies any fever, nausea, vomiting, diarrhea, or constipation. His last bowel movement was yesterday and was normal. He is eating normally at this point. He denies any urinary changes. He does have a history of renal stones but denies any hematuria today. He states the pain hit him fairly suddenly after breakfast. He has not taken any of his medications this morning. He ran out of his postoperative pain medications yesterday and substituted with naproxen. He has hypertensive this morning but has not yet taken his medications for blood pressure. Allergies and Home Medications Allergies Coded Allergies: Sulfa (Sulfonamide Antibiotics) (Unverified Allergy, Severe, 03/23/17) gluten (Verified Allergy, Intermediate, 03/29/17) history of celiac disease. cephalexin (Verified Adverse Reaction, Severe, NAUSEA/DIARRHEA, 03/23/17) clindamycin (Verified Adverse Reaction, Severe, NAUSEA/DIARRHEA, 03/23/17) Home Medications Aspirin 81 Mg Tablet.dr, 81 MG PO DAILY, (Reported) Carboxymethylcellulos/Glycerin 10 Ml Drops.gel, 1 DROP OU BID PRN for DRY EYES, (Reported) Ciprofloxacin HCl 500 Mg Tablet, 500 MG PO BID, #14 Prescribed by: ANGEL BARRIOS on 04/08/17 1315 Cyanocobalamin (Vitamin B-12) 2,500 Mcg Tab.subl, 2,500 MCG SL DAILY, (Reported) Cyclosporine 1 Each Droperette, 1 DROP OU BID, (Reported) Diclofenac Sodium 75 Mg Tablet.dr, 75 MG PO DAILY, (Reported) Enalapril Maleate 10 Mg Tablet, 20 MG PO DAILY, (Reported) LAST FILLED #180 5-31-17 TAKES 2 (10MG) TABLETS Hydrocodone Bit/Acetaminophen 1 Tab Tab, 1-2 TAB PO 4-6HR PRN for PAIN, #30 Ref 0 Prescribed by: CHRISTINE RYDER on 03/30/17 1245 Hydrocodone Bit/Acetaminophen 1 Tab Tab, 1 TAB PO Q6H PRN for PAIN-MODERATE TO SEVERE, #14 Prescribed by: ANGEL BARRIOS on 04/08/17 1315 Misoprostol 200 Mcg Tablet, 100 MCG PO DAILY, (Reported) TAKES 1/2 (200MCG) TABLET Multivitamin 1 Each Tablet, 1 TAB PO DAILY, (Reported) Polyethylene Glycol 3350 17 Gm Powd.pack, 17 GM PO DAILY PRN for CONSTIPATION- 2ND LINE, (Reported) Potassium Gluconate 99 Mg Tablet, 99 MG PO DAILY PRN for CRAMPS, (Reported) Saw [place] Fruit 450 Mg Capsule, 450 MG PO DAILY, (Reported) Tamsulosin HCl 0.4 Mg Cap.er.24h, 0.4 MG PO 1730, (Reported) LAST FILLED #30 11-17 Tolterodine Tartrate 2 Mg Tablet, 2 MG PO DAILY, (Reported) Vit A,C & E/Lutein/Minerals 1 Each Tablet, 1 TAB PO DAILY, (Reported) Review of Systems Constitutional: no symptoms reported EENTM: No Symptoms Reported Respiratory: No Symptoms Reported Cardiovascular: No Symptoms Reported Gastrointestinal: See HPI Genitourinary: No Symptoms Reported Musculoskeletal: no symptoms reported Skin: no symptoms reported Psychiatric/Neurological: No Symptoms Reported Endocrine: No Symptoms Reported Hematologic/Lymphatic: No Symptoms Reported Past Dpgovoe-Rcitcd-[place] Hx Patient Social History Alcohol Use: Denies Use Recreational Drug Use: No Smoking Status: Never a Smoker Recent Foreign Travel: No Contact w/Someone Who Travel: No Recent Infectious Disease Expo: No Recent Hopitalizations: No Immunizations Up To Date Date of Pneumonia Vaccine: May 23, 2014 Date of Influenza Vaccine: Dec 29, 2016 Seasonal Allergies Seasonal Allergies: No Surgeries History of Surgeries: Yes Surgeries: Abdominal (small bowel resection for treatment of obstruction), Amputation Respiratory History of Respiratory Disorde: No Respiratory Disorders: Pneumonia Cardiovascular History of Cardiac Disorders: Yes Cardiac Disorders: Hypertension Neurological History of Neurological Disord: No Genitourinary History of Genitourinary Disor: Yes Genitourinary Disorders: Benign Prostatic Hyperpl, UTI-Chronic Gastrointestinal History of Gastrointestinal Di: Yes (CELIAC DISEASE) Gastrointestinal Disorders: Chronic Constipation, Polyps Musculoskeletal History of Musculoskeletal Dis: Yes Musculoskeletal Disorders: Amputee, Arthritis Endocrine History of Endocrine Disorders: No HEENT History of HEENT Disorders: Yes Loss of Vision: Denies Hearing Impairment: Denies Cancer History of Cancer: No Psychosocial History of Psychiatric Problem: No Blood Transfusions History of Blood Disorders: No Adverse Reaction to a Blood Tr: No Family Medical History Significant Family History: No Pertinent Family Hx Physical Exam Vital Signs VS - Last 72 Hours, by Label 04/08/17 04/08/17 04/08/17 09:47 10:52 13:29 Temp 99.4 99.4 99.4 Pulse 108 94 Resp 18 18 B/P (MAP) 189/123 (145) Pulse Ox 98 O2 Delivery Room Air Capillary Refill : Less Than 3 Seconds General Appearance: WD/WN, mild distress HEENT: PERRL/EOMI, normal ENT inspection, pharynx normal Neck: normal inspection Respiratory: lungs clear, normal breath sounds, no respiratory distress, no accessory muscle use Cardiovascular: regular rate, rhythm, no edema, no murmur Gastrointestinal: normal bowel sounds, soft, tenderness (tenderness in the mid left abdomen and left lower abdomen), other (well healing incision that is clean , dry and intact. No point tenderness around the incision) Extremities: normal inspection, no pedal edema Back: normal inspection Neurologic/Psychiatric: triage rn II-XII nml as tested, no motor/sensory deficits, alert, normal mood/affect, oriented x 3 Skin: normal color, warm/dry Progress/Results/Core Measures Results/Orders Lab Results Laboratory Tests Test 04/08/17 10:00 04/08/17 10:09 Range/Units White Blood Count 9.8 4.3-11.0 10^3/uL Red Blood Count 3.07 L 4.35-5.85 10^6/uL Hemoglobin 10.0 L 13.3-17.7 G/DL Hematocrit 30 L 40-54 % Mean Corpuscular Volume 98 80-99 FL Mean Corpuscular Hemoglobin 33 25-34 PG Mean Corpuscular Hemoglobin Concent 33 32-36 G/DL Red Cell Distribution Width 14.1 10.0-14.5 % Platelet Count 543 H 130-400 10^3/uL Mean Platelet Volume 9.4 7.4-10.4 FL Neutrophils (%) (Auto) 75 42-75 % Lymphocytes (%) (Auto) 13 12-44 % Monocytes (%) (Auto) 9 0-12 % Eosinophils (%) (Auto) 2 0-10 % Basophils (%) (Auto) 0 0-10 % Neutrophils # (Auto) 7.4 1.8-7.8 X 10^3 Lymphocytes # (Auto) 1.2 1.0-4.0 X 10^3 Monocytes # (Auto) 0.9 0.0-1.0 X 10^3 Eosinophils # (Auto) 0.2 0.0-0.3 10^3/uL Basophils # (Auto) 0.0 0.0-0.1 10^3/uL Sodium Level 141 135-145 MMOL/L Potassium Level 4.5 3.6-5.0 MMOL/L Chloride Level 105 98-107 MMOL/L Carbon Dioxide Level 29 21-32 MMOL/L Anion Gap 7 5-14 MMOL/L Blood Urea Nitrogen 26 H 7-18 MG/DL Creatinine 0.91 0.60-1.30 MG/DL Estimat Glomerular Filtration Rate > 60 BUN/Creatinine Ratio 29 Glucose Level 89 70-105 MG/DL Calcium Level 8.8 8.5-10.1 MG/DL Total Bilirubin 0.4 0.1-1.0 MG/DL Aspartate Amino Transf (AST/SGOT) 21 5-34 U/L Alanine Aminotransferase (ALT/SGPT) 22 0-55 U/L Alkaline Phosphatase 86 40-136 U/L C-Reactive Protein High Sensitivity 10.43 H 0.00-0.50 MG/DL Total Protein 6.5 6.4-8.2 GM/DL Albumin 3.2 3.2-4.5 GM/DL Lipase 58 8-78 U/L Urine Color YELLOW Urine Clarity CLEAR Urine pH 7 5-9 Urine Specific [place] 1.010 L 1.016-1.022 Urine Protein 2+ H NEGATIVE Urine Glucose (UA) NEGATIVE NEGATIVE Urine Ketones NEGATIVE NEGATIVE Urine Nitrite POSITIVE H NEGATIVE Urine Bilirubin NEGATIVE NEGATIVE Urine Urobilinogen NORMAL NORMAL MG/DL Urine Leukocyte Esterase 2+ H NEGATIVE Urine RBC (Auto) 2+ H NEGATIVE Urine RBC 2-5 H /HPF Urine WBC 5-10 H /HPF Urine Squamous Epithelial Cells NONE /HPF Urine Crystals NONE /LPF Urine Bacteria LARGE H /HPF Urine Casts NONE /LPF Urine Mucus NEGATIVE /LPF Urine Culture Indicated YES My Orders Orders - ANGEL MARIE MD Ua Culture If Indicated (04/08/17 10:06) Cbc With Automated Diff (04/08/17 10:36) Comprehensive Metabolic Panel (04/08/17 10:36) Hs C Reactive Protein (04/08/17 10:36) Lipase (04/08/17 10:36) Saline Lock/Iv-Start (04/08/17 10:36) Fentanyl Injection (Sublimaze Injection (04/08/17 10:45) Urine Culture (04/08/17 10:09) Ct Abdomen/Pelvis W (04/08/17 11:10) Iohexol Injection (Omnipaque 350 Mg/Ml 1 (04/08/17 11:45) Ns (Ivpb) (Sodium Chloride 0.9% Ivpb Bag (04/08/17 11:45) Medications Given in ED Vital Signs/I&O Vital Sign - Last 12Hours 04/08/17 04/08/17 04/08/17 09:47 10:52 13:29 Temp 99.4 99.4 99.4 Pulse 108 94 Resp 18 18 B/P (MAP) 189/123 (145) Pulse Ox 98 O2 Delivery Room Air Blood Pressure Mean: 145 Progress Note : Progress Note Patient's pain was treated with fentanyl. Workup was relatively unremarkable except for urinary tract infection. CRP was elevated which is likely owing to UTI and postoperative state. Because of the intensity and sudden onset of patient's pain, CT scan was felt appropriate. CT showed a hematoma around the spleen that did not appear to be actively bleeding. Case was discussed with Dr. Garcia and later Dr. Ryder. Patient was felt safe to return home with close follow-up with Dr. Ryder early next week. Patient was comfortable with that plan. Cipro was prescribed for treatment of UTI. Patient was instructed to take his medications for hypertension upon returning home. Departure Impression Impression: Primary Impression: Postoperative hematoma Qualified Codes: D78.32 - Postprocedural hematoma of the spleen following other procedure Additional Impressions: Postoperative pain Urinary tract infection Qualified Codes: N39.0 - Urinary tract infection, site not specified Hypertension Qualified Codes: I10 - Essential (primary) hypertension Disposition: HOME, SELF-CARE Condition: Improved Departure-Patient Inst. Decision time for Depature: 13:00 Referrals: DONNA NATARAJAN MD (PCP/Family) Primary Care Physician Patient Instructions: HEMATOMA, Urinary Tract Infection, Adult (DC) Add. Discharge Instructions: Drink plenty of clear liquids. Use your pain medication as prescribed. Complete your antibiotics as prescribed. Follow-up with Dr. Ryder and your primary care provider as soon as possible. Return to emergency room if symptoms worsen. All discharge instructions reviewed with patient and/or family. Voiced understanding. Scripts Ciprofloxacin HCl (Cipro) 500 Mg Tablet 500 MG PO BID, #14 TAB Prov: ANGEL MARIE MD 04/08/17 Hydrocodone Bit/Acetaminophen (Hydrocodone/Acetaminophen 5/325mg Tablet) 1 Tab Tab 1 TAB PO Q6H Y for PAIN-MODERATE TO SEVERE, #14 TAB Prov: ANGEL MARIE MD 04/08/17 Copy Copies To 1: CHRISTINE RYDER MD Copies To 2: DONNA NATARAJAN MD, JOSHUA T MD Apr 08, 2017 13:15
[2017-04-08 13:29] VITALS: BP 182/90
== END 2017-04-08 13:29 | disposition home or self-care (01) ==
LOC: EDUNIT# 09:31 → ER 09:34
DX: K91.870 Postprocedural hematoma of a digestive system organ or structure following a digestive system procedure (principal); N39.0 Urinary tract infection, site not specified; I10 Essential (primary) hypertension; Z79.82 Long term (current) use of aspirin; Z87.01 Personal history of pneumonia (recurrent)
CPT/HCPCS: 36415; 74177; 80053; 81000; 83690; 85025; 86141; 87077; 87088; 87186

== ENCOUNTER 2017-04-27 01:25 | Emergency (ER) | payer MEDICARE, OTHER ==
[~2017-04-27] VITALS: Ht 175.3 cm; Wt 63.5 kg
[~2017-04-27 01:25] MED LIST changes: +CIPR-225 PO; +NITR-65 PO
[2017-04-27] MEDS ORDERED: POLY17PO6 PO (02:41)
--- NOTE | 2017-04-27 02:42 | ED Abdominal Pain ---
General Chief Complaint: Abdominal/GI Problems Stated Complaint: CONSTIPATION Nursing Triage Note: pt reports he is s/p abd sx for sbo approx 3 weeks ago. he states he has only had 2 bm's since sx and is having abd pain. he denies n/v or fever. Sepsis Screen: No Definite Risk Source of Information: Patient, Old Records Exam Limitations: No Limitations History of Present Illness Date Seen by Provider: Apr 27, 2017 Time Seen by Provider: 01:30 Initial Comments This 82-year-old gentleman presents to the emergency room with complaints of a generalized abdominal pain and constipation. He reports having only produced 2 or 3 small hard bowel movements in the last 2 weeks. He has history of small bowel for treatment of obstruction on March 23. He has been seen in this ER one other time since then for abdominal pain and was diagnosed with a postoperative hematoma. He denies any vomiting or diarrhea. He denies fever. He is presently taking Macrobid for urinary tract infection. Allergies and Home Medications Allergies Coded Allergies: Sulfa (Sulfonamide Antibiotics) (Unverified Allergy, Severe, 03/23/17) gluten (Verified Allergy, Intermediate, 03/29/17) history of celiac disease. cephalexin (Verified Adverse Reaction, Severe, NAUSEA/DIARRHEA, 03/23/17) clindamycin (Verified Adverse Reaction, Severe, NAUSEA/DIARRHEA, 03/23/17) Home Medications Aspirin 81 Mg Tablet.dr, 81 MG PO DAILY, (Reported) Carboxymethylcellulos/Glycerin 10 Ml Drops.gel, 1 DROP OU BID PRN for DRY EYES, (Reported) Ciprofloxacin HCl 500 Mg Tablet, 500 MG PO BID, #14 Prescribed by: ANGEL BARRIOS on 04/08/17 1315 Cyanocobalamin (Vitamin B-12) 2,500 Mcg Tab.subl, 2,500 MCG SL DAILY, (Reported) Cyclosporine 1 Each Droperette, 1 DROP OU BID, (Reported) Diclofenac Sodium 75 Mg Tablet.dr, 75 MG PO DAILY, (Reported) Enalapril Maleate 10 Mg Tablet, 20 MG PO DAILY, (Reported) LAST FILLED #180 08-11-16 TAKES 2 (10MG) TABLETS Hydrocodone Bit/Acetaminophen 1 Tab Tab, 1-2 TAB PO 4-6HR PRN for PAIN, #30 Ref 0 Prescribed by: CHRISTINE RYDER on 03/30/17 1245 Hydrocodone Bit/Acetaminophen 1 Tab Tab, 1 TAB PO Q6H PRN for PAIN-MODERATE TO SEVERE, #14 Prescribed by: ANGEL BARRIOS on 04/08/17 1315 Misoprostol 200 Mcg Tablet, 100 MCG PO DAILY, (Reported) TAKES 1/2 (200MCG) TABLET Multivitamin 1 Each Tablet, 1 TAB PO DAILY, (Reported) Nitrofurantoin Monohyd/M-Cryst 100 Mg Capsule, 1 TAB PO BID for 7 Days, ( Reported) Polyethylene Glycol 3350 17 Gm Powd.pack, 17 GM PO DAILY PRN for CONSTIPATION- 2ND LINE, (Reported) Polyethylene Glycol 3350 17 Gm Powd.pack, 17 GM PO TID PRN for CONSTIPATION-1ST LINE, #1 Prescribed by: ANGEL BARRIOS on 04/27/17 0241 Potassium Gluconate 99 Mg Tablet, 99 MG PO DAILY PRN for CRAMPS, (Reported) Saw [place] Fruit 450 Mg Capsule, 450 MG PO DAILY, (Reported) Tamsulosin HCl 0.4 Mg Cap.er.24h, 0.4 MG PO 1730, (Reported) LAST FILLED #30 17 Tolterodine Tartrate 2 Mg Tablet, 2 MG PO DAILY, (Reported) Vit A,C & E/Lutein/Minerals 1 Each Tablet, 1 TAB PO DAILY, (Reported) Review of Systems Constitutional: no symptoms reported EENTM: No Symptoms Reported Respiratory: No Symptoms Reported Cardiovascular: No Symptoms Reported Gastrointestinal: See HPI Genitourinary: No Symptoms Reported Musculoskeletal: no symptoms reported Skin: no symptoms reported Psychiatric/Neurological: No Symptoms Reported Endocrine: No Symptoms Reported Hematologic/Lymphatic: No Symptoms Reported Past Vgkqlht-Qopjga-Yaetlz Hx Patient Social History Alcohol Use: Denies Use Recreational Drug Use: No Smoking Status: Never a Smoker Recent Foreign Travel: No Contact w/Someone Who Travel: No Recent Infectious Disease Expo: No Recent Hopitalizations: No Immunizations Up To Date Date of Pneumonia Vaccine: May 23, 2014 Date of Influenza Vaccine: Dec 29, 2016 Seasonal Allergies Seasonal Allergies: No Surgeries History of Surgeries: Yes Surgeries: Abdominal (small bowel resection), Amputation Respiratory History of Respiratory Disorde: Yes Respiratory Disorders: Pneumonia Cardiovascular History of Cardiac Disorders: Yes Cardiac Disorders: Hypertension Neurological History of Neurological Disord: No Genitourinary History of Genitourinary Disor: Yes Genitourinary Disorders: Benign Prostatic Hyperpl, UTI-Chronic Gastrointestinal History of Gastrointestinal Di: Yes (CELIAC DISEASE) Gastrointestinal Disorders: Chronic Constipation, Polyps Musculoskeletal History of Musculoskeletal Dis: Yes Musculoskeletal Disorders: Amputee, Arthritis Endocrine History of Endocrine Disorders: No HEENT History of HEENT Disorders: Yes Loss of Vision: Denies Hearing Impairment: Denies Cancer History of Cancer: No Psychosocial History of Psychiatric Problem: No Blood Transfusions History of Blood Disorders: No Adverse Reaction to a Blood Tr: No Family Medical History Significant Family History: No Pertinent Family Hx Physical Exam Vital Signs VS - Last 72 Hours, by Label 04/27/17 01:40 Temp 96.9 Pulse 94 Resp 16 B/P (MAP) 179/95 (123) Pulse Ox 98 O2 Delivery Room Air Capillary Refill : Less Than 3 Seconds General Appearance: WD/WN, no apparent distress HEENT: PERRL/EOMI, normal ENT inspection, other (oropharynx dry from medication effect) Neck: normal inspection Respiratory: lungs clear, normal breath sounds, no respiratory distress, no accessory muscle use Cardiovascular: regular rate, rhythm, no edema Gastrointestinal: normal bowel sounds, soft, distended (mildly), tenderness ( diffuse, mild, without peritoneal signs) Extremities: normal inspection, no pedal edema, other (left lower extremity amputation) Neurologic/Psychiatric: gameplay engineer II-XII nml as tested, no motor/sensory deficits, alert, normal mood/affect, oriented x 3 Skin: normal color, warm/dry Progress/Results/Core Measures Results/Orders My Orders Orders - ANGEL MARIE MD Abdomen, Flat & Upright/Decub (04/27/17 01:43) Vital Signs/I&O Vital Sign - Last 12Hours 04/27/17 01:40 Temp 96.9 Pulse 94 Resp 16 B/P (MAP) 179/95 (123) Pulse Ox 98 O2 Delivery Room Air Blood Pressure Mean: 123 Progress Note : Progress Note Although patient's x-ray was not terribly impressive for constipation, history is consistent with constipation. Patient did pass significant flatus while in the ER which did improve his symptoms some. We will treat for constipation. Patient was given return precautions and advised to follow-up with Dr. Ryder in 1-2 days. In the meantime he is to use MiraLAX 2 or 3 times daily. Diagnostic Imaging Diagonstic Imaging: Xray Plain Films/CT/US/NM/MRI: abdomen, pelvis Comments KUB and upright viewed by me. Report not yet available. There is moderate amount of stool in the transverse colon. There is otherwise a nonspecific bowel gas pattern. No free air identified. Departure Impression Impression: Primary Impression: Abdominal pain, generalized Additional Impression: Constipation Qualified Codes: K59.00 - Constipation, unspecified Disposition: 01 HOME, SELF-CARE Condition: Stable Departure-Patient Inst. Referrals: SELFDONNA MD (PCP/Family) Primary Care Physician Patient Instructions: Acute Abdomen (Belly Pain), Adult (DC), Constipation, Adult (DC) Add. Discharge Instructions: Drink plenty of clear liquids. Use MiraLAX (polyethylene glycol) 2 or 3 times daily for treatment of constipation. Continue using MiraLAX until you produce some good bowel movements and then use just as needed. Fill the cap to the line and dissolve the powder in about 12 ounces of water or juice. Eat a diet high in fruits, vegetables, whole grains. Avoid excessive meats, cheeses, processed foods, and fast foods. Follow-up with Dr. Ryder in a day or two if not improving. If symptoms worsen significantly, return to the emergency room. All discharge instructions reviewed with patient and/or family. Voiced understanding. Scripts Polyethylene Glycol 3350 (Miralax) 17 Gm Powd.pack 17 GM PO TID Y for CONSTIPATION-1ST LINE, #1 EACH Prov: ANGEL MARIE MD 04/27/17 Copy Copies To 1: CHRISTINE RYDER MD, JOSHUA T MD Apr 27, 2017 02:42
[2017-04-27 02:45] VITALS: BP 179/95
--- NOTE | 2017-04-27 07:14 | Diagnostic Imaging Report ---
INDICATION: Small bowel resection 2 weeks ago. Persistent lower abdominal pain. 4 views of the abdomen with upright supine imaging. FINDINGS: Multiple sutures are seen from a ventral hernia repair. There is a moderate amount of stool in the ascending and transverse colon. There is gas in the descending and sigmoid colon and rectum without significant stool present. Stomach and small bowel are not distended. There is no organomegaly. Lung bases are clear. There are no air-fluid levels. No evidence of free air under the diaphragm. IMPRESSION: 1. Moderate amount of stool in the ascending and transverse colon. 2. No evidence of bowel obstruction. 3. No evidence of free air. Dictated by: Dictated on workstation # [id number]
== END 2017-04-27 02:45 | disposition home or self-care (01) ==
LOC: EDUNIT# 01:25 → ER 01:29
DX: K59.00 Constipation, unspecified (principal); I10 Essential (primary) hypertension; N40.0 Benign prostatic hyperplasia without lower urinary tract symptoms; Z87.440 Personal history of urinary (tract) infections; Z86.010 Personal history of colon polyps; Z88.2 Allergy status to sulfonamides; Z88.1 Allergy status to other antibiotic agents; Z88.8 Allergy status to other drugs, medicaments and biological substances; Z79.82 Long term (current) use of aspirin; Z90.49 Acquired absence of other specified parts of digestive tract; Z87.01 Personal history of pneumonia (recurrent)
CPT/HCPCS: 74019; 99282

== ENCOUNTER → 2018-05-23 | Outpatient (CLI) | payer MEDICARE, OTHER ==
--- NOTE | 2018-05-23 09:57 | Diagnostic Imaging Report ---
PROCEDURE: US Gallbladder. TECHNIQUE: Multiple real-time grayscale images were obtained over the right upper quadrant in various projections. INDICATION: Right-sided abdominal pain. FINDINGS: Liver parenchyma appears normal. Liver is not enlarged. Bile ducts are not dilated. Common duct measures 5 mm. The pancreas detail is limited due to bowel gas. Gallbladder appears normal without gallstones or wall thickening. There is no pericholecystic fluid. There is no ascites. The right kidney measures 7.6 x 3.8 x 4.8 cm. There is a cortical cyst measuring 1.3 cm which appears simple in nature. IMPRESSION: Somewhat limited study due to bowel gas. 1. Simple cyst noted in right kidney. 2. Gallbladder and bile ducts appear normal. Dictated by: Dictated on workstation # [id number]
== END ==
LOC: RAD 07:44
PROVIDERS: ATTEND Surgery
DX: N28.1 Cyst of kidney, acquired (principal)
CPT/HCPCS: 76705

== ENCOUNTER → 2018-06-08 | Outpatient (CLI) | payer MEDICARE, OTHER ==
[~2018-06-08] MED LIST changes: +BARIUM SUSPENSION 105% (LIQUID POLIBAR PLUS) 240 ML/DOSE PO ONE; +BARIUM SUSPENSION 60% (LIQUID EZ PAQUE) 240 ML DOSE PO ONE; +HOLD METFORMIN - RECEIVED CONTRAST 20 ML VIAL IV SCH; +IOHEXOL 350 MG/ML 100 ML (OMNIPAQUE 350) VIAL IV ONE
[2018-06-08 07:46] LABS: CREATININE SERUM 1.23 MG/DL (0.60-1.30)
--- NOTE | 2018-06-08 09:59 | Diagnostic Imaging Report ---
INDICATION: Difficulty swallowing. Axial imaging through the neck and chest was performed after the administration of intravenous contrast. No prior studies are available for comparison. CT NECK: The visualized intracranial structures are unremarkable. The posterior nasopharynx, oropharynx and larynx are unremarkable. Parapharyngeal fat planes are preserved. Submandibular and parotid glands appear to be symmetric bilaterally. No definite cervical lymphadenopathy is seen. No thyroid mass is detected. IMPRESSION: Unremarkable CT of the neck. CT CHEST: No axillary lymphadenopathy is detected. No definite mediastinal or hilar lymphadenopathy is identified. There is some ectasia of the thoracic aorta. No pericardial or pleural fluid is detected. No pulmonary infiltrates, nodules or masses are seen. Upper abdomen is unremarkable. IMPRESSION: Unremarkable CT of the chest. No thoracic lymphadenopathy or evidence of pulmonary metastatic disease is identified. Dictated by: Dictated on workstation # [id number]
--- NOTE | 2018-06-08 16:22 | Diagnostic Imaging Report ---
INDICATION: Difficulty swallowing solid foods. TECHNIQUE: The patient ingested effervescent crystals as well as thin and thick barium and imaging of the esophagus was performed. One minute and 23 seconds of fluoroscopy was utilized. Preliminary radiograph is unremarkable. Initial swallows did show some laryngeal penetration and minimal aspiration. The esophagus has a smooth contour. No mass or stricture is identified. No gastroesophageal reflux or hiatal hernia was demonstrated. Impression: Minimal aspiration during the initial swallow. The esophagram is otherwise unremarkable. Dictated by: Dictated on workstation # [id number]
== END ==
LOC: RAD 07:09
PROVIDERS: ATTEND Otolaryngology Otolaryngology/Facial Plastic Surgery
DX: J38.01 Paralysis of vocal cords and larynx, unilateral (principal)
CPT/HCPCS: 36415; 70491; 71260; 74220; 82565; 84520

== ENCOUNTER → 2019-04-20 | Outpatient (CLI) | payer MEDICARE, OTHER ==
[~2019-04-20] MED LIST changes: -BARIUM SUSPENSION 105% (LIQUID POLIBAR PLUS) 240 ML/DOSE PO ONE; -BARIUM SUSPENSION 60% (LIQUID EZ PAQUE) 240 ML DOSE PO ONE; +CYAN500011 PO; -HOLD METFORMIN - RECEIVED CONTRAST 20 ML VIAL IV SCH; -IOHEXOL 350 MG/ML 100 ML (OMNIPAQUE 350) VIAL IV ONE; +KRIL1CAP31 PO; +MIRA50TA PO; +MULT-1056 PO; +PSYL0.4C2 PO; +SAW/1TAB2 PO; +TMSL.4C PO; +VIT1CAPS44 PO
--- NOTE | 2019-04-20 10:47 | Diagnostic Imaging Report ---
INDICATION: Dysphagia. TECHNIQUE: The procedure was performed in conjunction with speech pathology. Video fluoroscopy was performed during the swallowing of barium at multiple consistencies. The patient ingested thin, puree, mechanical soft, ground meat, and cracker consistency. 1 minute and 18 seconds of fluoroscopic time was utilized. A single image was obtained. FINDINGS: The oral phase is unremarkable. There is normal epiglottic tilt and laryngeal elevation. There was a single episode of flash penetration during the swallowing of thin barium through a straw. No aspiration was observed. Mild vallecular residue was noted with multiple consistencies; however, this did clear with a second swallow. IMPRESSION: Modified barium swallow, as described demonstrating a single episode of flash penetration with thin consistency. No aspiration was observed. Dictated by: Dictated on workstation # [id number]
== END ==
LOC: RAD 09:42
PROVIDERS: ATTEND Surgery
DX: R13.10 Dysphagia, unspecified (principal)
CPT/HCPCS: 74230

== ENCOUNTER 2019-04-24 00:59 | Observation (INO) | payer MEDICARE, OTHER ==
[~2019-04-24] VITALS: Ht 170 cm; Wt 58.5 kg
[2019-04-24] VITALS (12 sets, daily range): BP systolic 149–213; BP diastolic 72–107
[~2019-04-24 00:59] MED LIST changes: -CYAN500011 PO; -KRIL1CAP31 PO; -MIRA50TA PO; -MULT-1056 PO; -PSYL0.4C2 PO; -SAW/1TAB2 PO; -TMSL.4C PO; -VIT1CAPS44 PO
[2019-04-24 01:21] LABS: BASOPHILS % (AUTO) 1 % (0-10); EOSINOPHILS # (AUTO) 0.3 10^3/uL (0.0-0.3); EOSINOPHILS % (AUTO) 5 % (0-10); HEMATOCRIT 38 % (40-54); HEMOGLOBIN 12.5 G/DL (13.3-17.7); LYMPHOCYTES # (AUTO) 2.3 X 10^3 (1.0-4.0); LYMPHOCYTES % (AUTO) 36 % (12-44); MEAN CORPUSCULAR HEMOGLOBIN 32 PG (25-34); MEAN CORPUSCULAR HGB CONC 33 G/DL (32-36); MEAN CORPUSCULAR VOLUME 99 FL (80-99); MEAN PLATELET VOLUME 9.9 FL (7.4-10.4); MONOCYTES # (AUTO) 0.9 X 10^3 (0.0-1.0); MONOCYTES % (AUTO) 14 % (0-12); NEUTROPHILS # (AUTO) 2.8 X 10^3 (1.8-7.8); NEUTROPHILS % (AUTO) 44 % (42-75); PLATELET COUNT 241 10^3/uL (130-400); RED CELL DISTRIBUTION WIDTH 13.6 % (10.0-14.5); WHITE BLOOD COUNT 6.3 10^3/uL (4.3-11.0)
[2019-04-24 01:25] LABS: INR 0.9 (0.8-1.4); PROTHROMBIN TIME PATIENT 12.1 SEC (12.2-14.7)
[2019-04-24 01:34] LABS: ALBUMIN 3.9 GM/DL (3.2-4.5); BILIRUBIN,TOTAL 0.2 MG/DL (0.1-1.0); CREATININE SERUM 1.66 MG/DL (0.60-1.30); MAGNESIUM 2.2 MG/DL (1.6-2.4); POTASSIUM 4.6 MMOL/L (3.6-5.0)
[2019-04-24 01:54] LABS: TSH (THYROID ANALYZER) 3.02 UIU/ML (0.35-4.94)
--- NOTE | 2019-04-24 02:00 | ED Chest Pain ---
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 UPON EMS ARRIVAL BP 200s/100s AND RATED CP 8 ON 0-10 SCALE. 1 SL NITRO GIVEN BY EMS AND THEN SBP DECREASED TO 170s AND CP WAS RELIEVED. PT DENIES CP ON ARRIVAL TO ER. Nursing Sepsis Screen: No Definite Risk Source: patient, EMS Exam Limitations: no limitations History of Present Illness Date Seen by Provider: Apr 24, 2019 Time Seen by Provider: 01:00 Initial Comments This 84-year-old man presents to the emergency room via EMS with sudden onset of chest pain that woke him from sleep somewhere between midnight and 00:30. EMS noted severe hypertension with blood pressure as high as 219/117. Aspirin and nitroglycerin were administered with relief of pain. Systolic blood pressure was in the 170s on arrival and pain was gone. Patient has not had a cardiac workup in many years. There is no cardiac workup on file in the current medical record. He denies any known cardiopulmonary problems. Pain is in the left upper chest and is not tender to palpation. He has not noticed anything in particular that makes it better or worse except the nitroglycerin. Patient's primary care provider is Dr. Natarajan. 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 He reports his lisinopril was recently increased to 20 mg twice daily. He is to have an appointment with Dr. Natarajan later today. Allergies and Home Medications Allergies Coded Allergies: Sulfa (Sulfonamide Antibiotics) (Unverified Allergy, Severe, 03/23/17) gluten (Verified Allergy, Intermediate, 03/29/17) history of celiac disease. cephalexin (Verified Adverse Reaction, Severe, NAUSEA/DIARRHEA, 03/23/17) clindamycin (Verified Adverse Reaction, Severe, NAUSEA/DIARRHEA, 03/23/17) Home Medications Aspirin 81 Mg Tablet., 81 MG PO DAILY, (Reported) Carboxymethylcellulos/Glycerin 10 Ml Drops.gel, 1 DROP OU BID PRN for DRY EYES, (Reported) Ciprofloxacin HCl 500 Mg Tablet, 500 MG PO BID Prescribed by: ANGEL BARRIOS on 04/08/17 1315 Cyanocobalamin (Vitamin B-12) 2,500 Mcg Tab.subl, 2,500 MCG SL DAILY, (Reported) Cyclosporine 1 Each Droperette, 1 DROP OU BID, (Reported) Diclofenac Sodium 75 Mg Tablet.dr, 75 MG PO DAILY, (Reported) Enalapril Maleate 10 Mg Tablet, 20 MG PO DAILY, (Reported) LAST FILLED #180 17 TAKES 2 (10MG) TABLETS Hydrocodone Bit/Acetaminophen 1 Tab Tab, 1-2 TAB PO 4-6HR PRN for PAIN Prescribed by: CHRISTINE RYDER on 03/30/17 1245 Hydrocodone Bit/Acetaminophen 1 Tab Tab, 1 TAB PO Q6H PRN for PAIN-MODERATE TO SEVERE Prescribed by: ANGEL BARRIOS on 04/08/17 1315 Misoprostol 200 Mcg Tablet, 100 MCG PO DAILY, (Reported) TAKES 1/2 (200MCG) TABLET Multivitamin 1 Each Tablet, 1 TAB PO DAILY, (Reported) Nitrofurantoin Monohyd/M-Cryst 100 Mg Capsule, 1 TAB PO BID, (Reported) Polyethylene Glycol 3350 17 Gm Powd.pack, 17 GM PO DAILY PRN for CONSTIPATION- 2ND LINE, (Reported) Polyethylene Glycol 3350 17 Gm Powd.pack, 17 GM PO TID PRN for CONSTIPATION-1ST LINE Prescribed by: ANGEL BARRIOS on 04/27/17 0241 Potassium Gluconate 99 Mg Tablet, 99 MG PO DAILY PRN for CRAMPS, (Reported) Saw [place] Fruit 450 Mg Capsule, 450 MG PO DAILY, (Reported) Tamsulosin HCl 0.4 Mg Cap.er.24h, 0.4 MG PO 1730, (Reported) LAST FILLED #30 17 Tolterodine Tartrate 2 Mg Tablet, 2 MG PO DAILY, (Reported) Vit A,C & E/Lutein/Minerals 1 Each Tablet, 1 TAB PO DAILY, (Reported) Patient Home Medication List Home Medication List Reviewed: Yes Review of Systems Review of Systems Constitutional: no symptoms reported EENTM: No Symptoms Reported Respiratory: No Symptoms Reported Cardiovascular: See HPI Gastrointestinal: No Symptoms Reported Genitourinary: No Symptoms Reported Musculoskeletal: no symptoms reported Skin: no symptoms reported Psychiatric/Neurological: No Symptoms Reported Endocrine: No Symptoms Reported Hematologic/Lymphatic: No Symptoms Reported Past Rfuycpv-Sofwdd-Auymym Hx Past Med/Social Hx: Reviewed and Corrections made Patient Social History Alcohol Use: Denies Use Recreational Drug Use: No Smoking Status: Former Smoker Recent Foreign Travel: No Contact w/Someone Who Travel: No Recent Infectious Disease Expo: No Recent Hopitalizations: No Physical Abuse: No Sexual Abuse: No Mistreated: No Fear: No Immunizations Up To Date Date of Pneumonia Vaccine: May 23, 2014 Date of Influenza Vaccine: Dec 29, 2016 Seasonal Allergies Seasonal Allergies: No Past Medical History Surgeries: Yes Abdominal, 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) Respiratory: Yes Pneumonia Cardiac: Yes Hypertension Neurological: No Genitourinary: Yes Benign Prostatic Hyperpl, UTI-Chronic Gastrointestinal: Yes (CELIAC DISEASE) Chronic Constipation, Polyps Musculoskeletal: Yes Amputee, Arthritis Endocrine: No HEENT: Yes Loss of Vision: Denies Hearing Impairment: Denies Cancer: No Psychosocial: No Blood Disorders: No Adverse Reaction/Blood Tranf: No Family Medical History Reviewed Nursing Family Hx No Pertinent Family Hx Physical Exam Vital Signs Vital Signs - First Documented Capillary Refill : Less Than 3 Seconds Height, Weight, BMI Height: 5'9.00" Weight: 140lbs. 0.0oz. 63.739886gy; 21.00 BMI Method:Stated General Appearance: No Apparent Distress, WD/WN, Thin HEENT: PERRL/EOMI, Normal ENT Inspection Neck: Normal Inspection Respiratory: Chest Non Tender, Lungs Clear, Normal Breath Sounds, No Accessory Muscle Use, No Respiratory Distress Cardiovascular: Regular Rate, Rhythm, No Edema, No Murmur, Normal Peripheral Pulses Gastrointestinal: Normal Bowel Sounds, Non Tender, Soft Rectal: Normal Exam Extremity: Normal Inspection, No Pedal Edema, Other (left BKA) Neurologic/Psychiatric: Alert, Oriented x3, No Motor/Sensory Deficits, Normal Mood/Affect, travel sales consultant II-XII Norm as Tested Skin: Normal Color, Warm/Dry Progress/Results/Core Measures Results/Orders Lab Results Laboratory Tests Test 04/24/19 01:03 Range/Units White Blood Count 6.3 4.3-11.0 10^3/uL Red Blood Count 3.86 L 4.35-5.85 10^6/uL Hemoglobin 12.5 L 13.3-17.7 G/DL Hematocrit 38 L 40-54 % Mean Corpuscular Volume 99 80-99 FL Mean Corpuscular Hemoglobin 32 25-34 PG Mean Corpuscular Hemoglobin Concent 33 32-36 G/DL Red Cell Distribution Width 13.6 10.0-14.5 % Platelet Count 241 130-400 10^3/uL Mean Platelet Volume 9.9 7.4-10.4 FL Neutrophils (%) (Auto) 44 42-75 % Lymphocytes (%) (Auto) 36 12-44 % Monocytes (%) (Auto) 14 H 0-12 % Eosinophils (%) (Auto) 5 0-10 % Basophils (%) (Auto) 1 0-10 % Neutrophils # (Auto) 2.8 1.8-7.8 X 10^3 Lymphocytes # (Auto) 2.3 1.0-4.0 X 10^3 Monocytes # (Auto) 0.9 0.0-1.0 X 10^3 Eosinophils # (Auto) 0.3 0.0-0.3 10^3/uL Basophils # (Auto) 0.0 0.0-0.1 10^3/uL Prothrombin Time 12.1 L 12.2-14.7 SEC INR Comment 0.9 0.8-1.4 Activated Partial Thromboplast Time 27 24-35 SEC Sodium Level 141 135-145 MMOL/L Potassium Level 4.6 3.6-5.0 MMOL/L Chloride Level 105 98-107 MMOL/L Carbon Dioxide Level 28 21-32 MMOL/L Anion Gap 8 5-14 MMOL/L Blood Urea Nitrogen 32 H 7-18 MG/DL Creatinine 1.66 H 0.60-1.30 MG/DL Estimat Glomerular Filtration Rate 40 BUN/Creatinine Ratio 19 Glucose Level 110 H 70-105 MG/DL Calcium Level 9.0 8.5-10.1 MG/DL Corrected Calcium 9.1 8.5-10.1 MG/DL Magnesium Level 2.2 1.6-2.4 MG/DL Total Bilirubin 0.2 0.1-1.0 MG/DL Aspartate Amino Transf (AST/SGOT) 18 5-34 U/L Alanine Aminotransferase (ALT/SGPT) 17 0-55 U/L Alkaline Phosphatase 94 40-136 U/L Myoglobin 80.5 10.0-92.0 NG/ML Troponin I < 0.028 <0.028 NG/ML Total Protein 7.0 6.4-8.2 GM/DL Albumin 3.9 3.2-4.5 GM/DL TSH [place] Testing 3.02 0.35-4.94 UIU/ML My Orders Orders - ANGEL MARIE MD Cbc With Automated Diff (04/24/19 01:10) Magnesium (04/24/19 01:10) Chest 1 View, Ap/Pa Only (04/24/19 01:10) Ekg Tracing (04/24/19 01:10) Comprehensive Metabolic Panel (04/24/19 01:10) Myoglobin Serum (04/24/19:10) Protime With Inr (04/24/19:10) Partial Thromboplastin Time (04/24/19:10) O2 (04/24/19 01:10) Monitor-Rhythm Ecg Trace Only (04/24/19:10) Lipid Panel (04/25/19 06:00) Ed Iv/Invasive Line Start (04/24/19 01:10) Troponin I (04/24/19:10) Thyroid Analyzer (04/24/19 01:10) Nitroglycerin Ointment (Nitrobid Ointme (04/24/19 02:30) Clopidogrel Tablet (Plavix Tablet) (04/24/19 02:45) Metoprolol Succinate (Xl) Tab (Toprol Xl (04/24/19 02:45) Famotidine Injection (Pepcid Injection) (04/24/19 02:45) Vital Signs/I&O 04/24/19 04/24/19 01:00 01:00 Temp 36.6 Pulse 92 Resp 18 B/P (MAP) 194/106 (135) O2 Delivery Room Air Room Air Blood Pressure Mean: 135 Progress Progress Note : Time: 02:47 Progress Note Patient received aspirin and nitroglycerin by EMS in the field. Patient's pain resolved after one nitroglycerin and systolic blood pressure dropped to the 170s. He remained pain free for a while in the emergency room but pain eventually started to creep back up and was recently stated as 2/10. Nitroglycerin paste was then applied. Initial workup was unremarkable except for elevated creatinine of 1.66. I discussed options with patient and encouraged him to stay for observation since he has not had a cardiac workup here in the past. Patient is agreeable. We discussed CODE STATUS and he wishes to have a DO NOT RESUSCITATE order. Case was reviewed with Dr. Vargas who requested Toprol-XL 200 milligrams now and daily and Plavix 300 mg now and then 75 mg daily. He also requested slow IV fluids at 75 ML per hour. He was in agreement with the nitroglycerin paste. Dr. Graham was also notified of admission. Because of patient's GI history, I have also ordered Pepcid in the ER and on the floor. Initial ECG Impression Date: Apr 24, 2019 Initial ECG Impression Time: 01:05 Initial ECG Rate: 80 Initial ECG Rhythm: Normal Sinus Initial ECG Intervals: Normal Comment Normal sinus rhythm with no ST elevation or depression. No abnormal intervals. LVH by automated read. Diagnostic Imaging Diagonstic Imaging: Xray Plain Films/CT/US/NM/MRI: chest Comments Chest x-ray viewed by me. Report not yet available. No acute abnormalities appreciated. Departure Communication (Admissions) Time/Spoke to Admitting Phy: 02:35 Dr. Graham Time/Spoke to Consulting Phy: 02:30 Dr. Vargas Impression Primary Impression: Chest pain Qualified Codes: R07.9 - Chest pain, unspecified Additional Impressions: Severe hypertension Acute kidney injury Disposition: ADMITTED INPATIENT Condition: Improved Admissions Decision to Admit Reason: Admit from ER (General) Decision to Admit/Date: Apr 24, 2019 Time/Decision to Admit Time: 02:25 Departure-Patient Inst. Referrals: DONNA NATARAJAN MD (PCP/Family) Primary Care Physician Copy Copies To 1: DONNA NATARAJAN MD, JOSHUA T MD Apr 24, 2019 02:00
[2019-04-24] MEDS ORDERED: NITROGLYCERIN 2% OINT 1 GM UNIT DOSE PACKET TOP ONE (02:30)
[2019-04-24] MEDS ORDERED: meTOprolol SUCCINATE 100 MG (TOPROL XL) TAB PO ONE (02:45)
[2019-04-24] MEDS ORDERED: FAMOTIDINE 20MG/2ML IV (PEPCID) IVP ONE (02:45)
[2019-04-24] MEDS ORDERED: CLOPIDOGREL 300 MG (PLAVIX) TABLET PO ONE (02:45)
--- NOTE | 2019-04-24 03:35 | NUR ---
JOSE TORSTEN admitted to room CU3-1, with an admitting diagnosis of CHEST PAIN, SEVERE HYPERTENSION, on 04/24/19 from ED via WHEELCHAIR, accompanied by HOSPITAL STAFF. JOSE SARMIENTO introduced to surroundings, call light, bed controls, phone, TV, temperature control, lights, meal times, smoking policy, visitor policy, side rail policy, bathrooms and showers. Patient Rights given to patient in the handbook.JOSE SARMIENTO verbalizes understanding that [facility] is not responsible for the loss or damage to any personal effects or valuables that are kept in the patients posession during their hospitalization. JOSE SARMIENTO verbalizes understanding of Interdisciplinary Patient Education. Patient and/or family were informed about the Rapid Response Team and its purpose.
[2019-04-24] MEDS ORDERED: NS IV 1000 ML 1,000 ML ONE (03:38)
[2019-04-24] MEDS ORDERED: NITROGLYCERIN 2% OINT 1 GM UNIT DOSE PACKET TOP SCH (04:45)
[2019-04-24] MEDS ORDERED: ONDANSETRON 4 MG/2 ML (SDV) Z0FRAN IV PRN (05:00)
[2019-04-24] MEDS ORDERED: morphine INJ 4 MG/ML 1 ML (VIAL/SYRINGE) IV PRN (05:00)
[2019-04-24] MEDS: NS IV 1000 ML 1,000 ML IV SCH ×2 (05:10→18:36)
--- NOTE | 2019-04-24 07:03 | Diagnostic Imaging Report ---
CLINICAL INDICATION: Patient with chest pain. EXAM: Portable chest x-ray upright view. COMPARISONS: Chest x-ray dated 03/24/2017. FINDINGS: There is interval removal of the previously seen feeding tube and left central line. Lungs are clear. There is no pleural effusion or pneumothorax. Pulmonary vasculature and cardiac silhouette is within normal limits. There are hypertrophic spurs involving the spine. IMPRESSION: There is no radiographic evidence of acute cardiopulmonary process. Dictated by: Dictated on workstation # [id number]
[2019-04-24] MEDS ORDERED: FAMOTIDINE 20MG/2ML IV (PEPCID) IVP SCH (09:00)
--- NOTE | 2019-04-24 09:00 | Consultation-Cardiology ---
HPI-Cardiology Cardiology Consultation: Date of Consultation 04/24/19 Time Seen by a Provider: 08:35 Date of Admission 04-23-2019 Attending Physician Evelyn Graham DO Admitting Physician Rashid Natarajan MD Consulting Physician Grace Vargas MD HPI: Chief Complaint: Chest pain Mr. Sarmiento is an 84 year old man who lives at home with his daughter. He reports yesterday he had eaten chili for supper. He then took a nap. He woke up and ate some potato chips then went to bed. He reports around 1:00 in the morning he was awakened with mid-sternal chest pressure which radiated across his chest. He reports the discomfort was constant, rating it an 8 on a 1-10 pain scale. He states he felt some SOB with it, but that did not last. He states after several minutes of the pressure EMS was called. He reports they gave him a nitro sublingual which did resolve the pain after approx 10-15 minutes. He has not had any recurrence. No c/o palpitations, syncope or near syncope. He reports his right foot is frequently cold. He denies any n/v/d. He denies any fever or chills. Review of Systems-Cardiology Review of Systems Constitutional: No chills, No fever, No malaise Eyes: No vision change Ears/Nose/Throat: No epistaxis, No recent hearing loss Respiratory: As described under HPI Cardiovascular: As described under HPI Gastrointestinal: No constipation, No diarrhea; difficulty swallowing (chronic); No nausea, No vomiting Genitourinary: dysuria (chronic); No hematuria Skin: No rash on exposed areas, No ulcerations on exposed areas Psychiatric/Neurological: No anxiety, No depression, No focal weakness, No syncope Hematologic: No bleeding abnormalities ZMY-Rbqjjw-Fqtbla Hx Patient Social History Alcohol Use: Denies Use Recreational Drug Use: No Smoking Status: Former Smoker Recent Foreign Travel: No Recent Infectious Disease Expo: No Hospitalization with Isolation: Denies Immunizations Up To Date Date of Pneumonia Vaccine: Dec 12, 2018 Date of Influenza Vaccine: Dec 12, 2018 Past Medical History PMH As described under Assessment. Family Medical History Family Medical History: He reports he has 3 brothers who have had CAD. He reports his father and mother both had cancer. Family History: Cardiovascular disease G8 BROTHER FH: esophageal cancer 19 MOTHER Oral cancer 19 FATHER Allergies and Home Medications Allergies Coded Allergies: Sulfa (Sulfonamide Antibiotics) (Unverified Allergy, Severe, 03/23/17) gluten (Verified Allergy, Intermediate, 03/29/17) history of celiac disease. cephalexin (Verified Adverse Reaction, Severe, NAUSEA/DIARRHEA, 03/23/17) clindamycin (Verified Adverse Reaction, Severe, NAUSEA/DIARRHEA, 03/23/17) Home Medications Aspirin 81 Mg Tablet.dr, 81 MG PO DAILY, (Reported) Carboxymethylcellulos/Glycerin 10 Ml Drops.gel, 1 DROP OU TID PRN for DRY EYES, (Reported) Cyanocobalamin (Vitamin B-12) 5,000 Mcg Capsule, 5,000 MCG PO BID, (Reported) Cyclosporine 1 Each Droperette, 1 DROP OU BID, (Reported) LAST FILLED #60 10-17-18 Diclofenac Sodium 75 Mg Tablet.dr, 75 MG PO BID, (Reported) LAST FILLED #180 10-03-18 Enalapril Maleate 10 Mg Tablet, 20 MG PO BID, (Reported) TAKES 2 (10MG) TABLETS Krill/Om-3/Dha/Epa/Phospho/Ast 1 Each Capsule, 500 MG PO BID, (Reported) Mirabegron 50 Mg Tab.er.24h, 50 MG PO DAILY, (Reported) Misoprostol 200 Mcg Tablet, 200 MCG PO BID, (Reported) Multivit-Min/FA/Lycopen/Lutein 1 Each Tablet, 1 TAB PO DAILY, (Reported) Polyethylene Glycol 3350 17 Gm Powd.pack, 17 GM PO DAILY PRN for CONSTIPATION- 2ND LINE, (Reported) Potassium Gluconate 99 Mg Tablet, 99 MG PO DAILY, (Reported) Psyllium Husk 0.4 Gm Capsule, 0.4 GM PO DAILY PRN for LOOSE STOOLS, (Reported) Saw/Vit E/Sod Alexa/Lyc/Beta/Pyg 1 Each Tablet, 1 TAB PO BID, (Reported) Tamsulosin HCl 0.4 Mg Cap, 0.4 MG PO 1730, (Reported) Vit C/E/Zn/Coppr/Lutein/Zeaxan 1 Each Capsule, 1 CAP PO BID, (Reported) Patient Home Medication List Home Medication List Reviewed: Yes Physical Exam-Cardiology Physical Exam Vital Signs/I&O 04/25/19 04/25/19 04/25/19 04/26/19 19:48 20:00 21:00 00:00 Temp 37.0 Pulse 70 Resp 18 B/P (MAP) 159/75 (103) Pulse Ox 97 O2 Delivery Room Air Room Air Room Air Room Air 04/26/19 01:00 Pulse 60 04/25/19 23:59 Intake Total 800 ml Output Total 1625 ml Balance -825 ml Capillary Refill : Less Than 3 Seconds Constitutional: AAO x 3, well-developed, well-nourished HEENT: PERRL, hearing is well preserved, oral hygience is good Neck: No carotid bruit; carotid pulses are 2 + bilaterally Respiratory: No accessory muscle use, No respiratory distress; chest expansion is symmetric, chest is bilaterally symmetric, lungs clear to auscultation Cardiovascular: regular rate-rhythm; No JVD; S1 and S2 Gastrointestinal: No tender; soft, round, audible bowel sounds Extremities: other (L BKA), no lower extremity edema bilateral Neurologic/Psychiatric: grossly intact (moves all extremities) Skin: No rash on exposed areas, No ulcerations on exposed areas Data Review Labs Laboratory Tests 04/26/19 03:42: White Blood Count 6.9, Red Blood Count 4.11L, Hemoglobin 13.4, Hematocrit 40, Mean Corpuscular Volume 96, Mean Corpuscular Hemoglobin 33, Mean Corpuscular Hemoglobin Concent 34, Red Cell Distribution Width 12.9, Platelet Count 239, Mean Platelet Volume 9.8, Neutrophils (%) (Auto) 58, Lymphocytes (%) (Auto) 28, Monocytes (%) (Auto) 9, Eosinophils (%) (Auto) 4, Basophils (%) (Auto) 1, Neutrophils # (Auto) 4.0, Lymphocytes # (Auto) 1.9, Monocytes # (Auto) 0.6, Eosinophils # (Auto) 0.3, Basophils # (Auto) 0.0, Sodium Level 140, Potassium Level 3.9, Chloride Level 107, Carbon Dioxide Level 25, Anion Gap 8, Blood Urea Nitrogen 23H, Creatinine 1.27, Estimat Glomerular Filtration Rate 54, BUN/Creatinine Ratio 18, Glucose Level 77, Calcium Level 8.6, Corrected Calcium 9.1, Total Bilirubin 0.3, Aspartate Amino Transf (AST/SGOT) 17, Alanine Aminotransferase (ALT/SGPT) 17, Alkaline Phosphatase 97, Total Protein 6.3L, Albumin 3.4 Radiology NAME: JOSE SARMIENTO [facility] REC#: [id number] PT STATUS: ADM Verónica : 1935 PHYSICIAN: ANGEL MARIE MD ADMIT DATE: 04/24/19/ICU Draft Date of Exam:04/24/19 CHEST 1 VIEW, AP/PA ONLY CLINICAL INDICATION: Patient with chest pain. EXAM: Portable chest x-ray upright view. COMPARISONS: Chest x-ray dated 03/24/2017. FINDINGS: There is interval removal of the previously seen feeding tube and left central line. Lungs are clear. There is no pleural effusion or pneumothorax. Pulmonary vasculature and cardiac silhouette is within normal limits. There are hypertrophic spurs involving the spine. IMPRESSION: There is no radiographic evidence of acute cardiopulmonary process. Dictated on workstation # [id number] Dict: 04/24/19 0647 Trans: 04/24/19 0702 [id number] Interpreted by: MARLENA ADAMES MD Electronically signed by: ECG Impression ECG Initial ECG Rhythm: Normal Sinus A/P-Cardiology Assessment/Admission Diagnosis Chest pain of undetermined etiology - no evidence of ACS HTN HLD Chronic dysphagia for which he has had recent swallow eval by Dr. 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 Sun Acute renal insufficiency Discussion and Recomendations Chest pain of undetermined etiology - no evidence of ACS Continue antihypertensives Continue home medications Monitor lab Replace electrolytes as indicated Echocardiogram to eval structure Further recs will be based on his hospital course We would like to thank medical services for this consult Clinical Quality Measures AMI/AHF: ASA po Prior to arrival: Yes (EN ROUTE [facility]) DVT/VTE Risk/Contraindication: Risk Factor Score Per Nursin RFS Level Per Nursing on Admit: 2=Moderate JEEVAN OCLLINS Apr 24, 2019 09:00
[2019-04-24] MEDS ORDERED: PSYL0.4C2 PO (09:28)
[2019-04-24] MEDS ORDERED: CYAN500011 PO (09:28)
[2019-04-24] MEDS ORDERED: POTA99TA21 PO (09:28)
[2019-04-24] MEDS ORDERED: SAW/1TAB2 PO (09:28)
[2019-04-24] MEDS ORDERED: KRIL1CAP31 PO (09:28)
[2019-04-24] MEDS ORDERED: VIT1CAPS44 PO (09:28)
[2019-04-24] MEDS ORDERED: MULT-1056 PO (09:28)
[2019-04-24] MEDS ORDERED: TMSL.4C PO (09:34)
[2019-04-24] MEDS ORDERED: MIRA50TA PO (09:37)
[2019-04-24] MEDS: meTOprolol SUCCINATE 100 MG (TOPROL XL) TAB PO SCH (09:43)
[2019-04-24] MEDS: CLOPIDOGREL 75 MG (PLAVIX) TABLET PO SCH (09:44)
[2019-04-24] MEDS: ASPIRIN E.C. 81 MG (ECOTRIN) TAB PO SCH (09:44)
[2019-04-24] MEDS: lisINopril 20 MG (PRINIVIL) TABLET PO SCH ×2 (09:44→20:28)
--- NOTE | 2019-04-24 09:54 | NUR ---
PATIENT HAD HIS BOTTLES WITH HIM. I WENT OVER THEM AND HE VERIFIED HOW HE TAKES THEM. BOTTLES FROM [facility]: 04-19-19 MYRBETRIQ 50MG DAILY #15 04-09-19 ENALAPRIL 10MG BID #180 (STATES IT WAS INCREASED TO 2 TABS BID) 03-20-19 MISOPROSTOL 200MCG BID #60 03-20-19 FLOMAX 0.4MG DAILY #90 10-03-18 DICLOFENAC 75MG BID #180 (NOTED PAST DUE FILL DATE, [facility] HAS A SCRIPT READY) 10-17-18 RESTASIS #60 OTC MEDS: POTASSIUM DAILY ASPIRIN 81MG DAILY REFRESH PRN B12 5000 BID KRILL OIL BID MTV DAILY MIRALAX PRN FIBER DAILY PRN PROSTATE HEALTH BID PRESERVISION BID HE HAS BOTTLES OF MAGNESIUM AND SOME OLD FILLS OF TESSALON AND FLEXERIL HE STATES HE IS NO LONGER TAKING.
--- NOTE | 2019-04-24 11:42 | Short Stay Summary-Hospitalist ---
ERICA SEWELL,MED STUDENT 04/24/19 1142: History of Present Illness HPI/Chief Complaint Mr. Mcdonald is an 84 year old male that presented to the emergency department for chest pain. The pain began last night around midnight and awoke him from sleep. He describes the pain as midchest, an 8/10, and as pressure. EMS was called and he was given nitro and ASA in route to the hospital with relief of his chest pain. He admits to some SOB but denies nausea, vomiting, diarrhea, diaphoresis, palpitations, fever, or chills. He has not had a recurrence of chest pain since that time. At the arrival of EMS his blood pressure was 200's/100's. It improved after the nitro but is still elevated at 184/91.He does not currently see a warehouse administrator and denies any past cardiopulmonary medical history. He lives at home with his daughter and is independent with care. He occasionally uses a walker for stability. 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 Source: patient, family Exam Limitations: no limitations Date Seen 04/24/19 Time Seen by a Provider: 10:15 Attending Physician Evelyn Rod DO PCP Self,Rashid JACOB Referring Physician Date of Admission Apr 24, 2019 at 02:37 Home Medications & Allergies Home Medications Reviewed patient Home Medication Reconciliation performed by pharmacy medication reconciliations structural engineering technician and/or nursing. Patients Allergies have been reviewed. Allergies Allergies Coded Allergies Sulfa (Sulfonamide Antibiotics) (Unverified Allergy, Severe, 03/23/17) gluten (Verified Allergy, Intermediate, 03/29/17) history of celiac disease. cephalexin (Verified Adverse Reaction, Severe, NAUSEA/DIARRHEA, 03/23/17) clindamycin (Verified Adverse Reaction, Severe, NAUSEA/DIARRHEA, 03/23/17) Past Znndnfn-Xoqqhh-Trekgo Hx Past Med/Social Hx: Reviewed and Corrections made Patient Social History Employed/Student: retired Alcohol Use: Denies Use Recreational Drug Use: No Smoking Status: Former Smoker (2-3 months at age 20) Recent Foreign Travel: No Contact w/other who traveled: No Recent Hopitalizations: No Recent Infectious Disease Expo: No Immunizations Up To Date Date of Pneumonia Vaccine: Dec 12, 2018 Date of Influenza Vaccine: Dec 12, 2018 Seasonal Allergies Seasonal Allergies: No Past Medical History Surgeries: Abdominal, Amputation (left below the knee secondary to crush injury and infection) Cardiac: Hypertension Genitourinary: Benign Prostatic Hyperpl, UTI-Chronic Gastrointestinal: Chronic Constipation, Polyps Musculoskeletal: Amputee, Arthritis Loss of Vision: Denies Hearing Impairment: Denies History of Blood Disorders: No Adverse Reaction to Blood Arnold: No Family History Reviewed Nursing Family Hx Cardiovascular disease G8 BROTHER FH: esophageal cancer 19 MOTHER Oral cancer 19 FATHER No Pertinent Family Hx Review of Systems Constitutional: No chills, No diaphoresis, No fever EENTM: No blurred vision, No double vision Respiratory: No cough; short of breath Cardiovascular: chest pain; No palpitations, No syncope Gastrointestinal: No abdominal pain, No constipation, No diarrhea, No nausea, No vomiting Genitourinary: No decreased output, No dysuria Musculoskeletal: No joint pain, No muscle pain Skin: No change in color Psychiatric/Neurological: Denies Headache, Denies Paresthesia Physical Exam Physical Exam Vital Signs Vital Signs - First Documented 04/24/19 03:20 Pulse Ox 98 Capillary Refill : Less Than 3 Seconds Height, Weight, BMI Height: 5'9.00" Weight: 140lbs. 0.0oz. 63.434245fl; 20.96 BMI Method:Stated General Appearance: No Apparent Distress, WD/WN, Thin HEENT: PERRL/EOMI, Normal ENT Inspection Neck: Normal Inspection, Non Tender Respiratory: Chest Non Tender, Lungs Clear, Normal Breath Sounds, No Accessory Muscle Use, No Respiratory Distress Cardiovascular: Regular Rate, Rhythm, No Edema, No Murmur, Normal Peripheral Pulses Gastrointestinal: Normal Bowel Sounds, Non Tender, Soft; No Distended, No Guarding Extremity: No Calf Tenderness, No Pedal Edema, Other (left BKA) Neurologic/Psychiatric: Alert, Oriented x3, Normal Mood/Affect Skin: Normal Color, Warm/Dry Results Results/Procedures Labs Laboratory Tests 04/24/19 01:03 Patient resulted labs reviewed. Imaging Chest XRAY FINDINGS: There is interval removal of the previously seen feeding tube and left central line. Lungs are clear. There is no pleural effusion or pneumothorax. Pulmonary vasculature and cardiac silhouette is within normal limits. There are hypertrophic spurs involving the spine. IMPRESSION: There is no radiographic evidence of acute cardiopulmonary process. Short Stay Diagnosis Discharge Diagnosis-Short Stay Admission Diagnosis Chest pain Severe hypertension Conclusion Plan Continue home medications Continue antihypertensives Echo to be done today - cardiology following Continue to monitor for recurrence of chest pain Clinical Quality Measures AMI/AHF: ASA po Prior to arrival: Yes (EN ROUTE [facility]) DVT/VTE Risk/Contraindication: Risk Factor Score Per Nursin RFS Level Per Nursing on Admit: 2=Moderate EVELYN ROD DO 04/24/192108: History of Present Illness HPI/Chief Complaint CC: Chest pain HPI: This is an 84yoWM with a history of left leg amputation who presents to the ER with chest pain and SOB, Pt had an entire workup that was negative, but elev ated BP required admission for close observation and cardiology consultation Past Ybodcuw-Gzdnje-Vqucaz Hx Past Med/Social Hx: Reviewed Nursing Past Med/Soc Hx, Reviewed and Corrections made Patient Social History Marrital Status: single Employed/Student: retired Alcohol Use: Denies Use Smoking Status: Former Smoker (2-3 months at age 20) Family History Cardiovascular disease G8 BROTHER FH: esophageal cancer 19 MOTHER Oral cancer 19 FATHER Review of Systems Constitutional: see HPI Cardiovascular: chest pain Physical Exam Physical Exam General Appearance: No Apparent Distress, WD/WN, Chronically ill, Thin Eyes: Bilateral Eye Normal Inspection, Bilateral Eye PERRL HEENT: PERRL/EOMI, Normal ENT Inspection, Pharynx Normal Neck: Full Range of Motion, Normal Inspection, Non Tender, Supple, Carotid Br uit Respiratory: Chest Non Tender, Lungs Clear, Normal Breath Sounds, No Accessory Muscle Use, No Respiratory Distress Cardiovascular: Regular Rate, Rhythm, No Edema, No Gallop, No JVD, No Murmur, Normal Peripheral Pulses Gastrointestinal: Normal Bowel Sounds, No Organomegaly, No Pulsatile Mass, Non Tender, Soft Back: Normal Inspection, No CVA Tenderness, No Vertebral Tenderness Extremity: Normal Capillary Refill, Normal Inspection, Normal Range of Motion, Non Tender, No Calf Tenderness, No Pedal Edema, Other (left BKA) Neurologic/Psychiatric: Alert, Oriented x3, No Motor/Sensory Deficits, Normal Mood/Affect Skin: Normal Color, Warm/Dry Lymphatic: No Adenopathy Short Stay Diagnosis Discharge Diagnosis-Short Stay Admission Diagnosis Chest pain HTN OOC Left BKA due to injury 1969 Final Discharge Diagnosis Chest pain HTN OOC Left BKA due to injury 1969 Conclusion Plan Cardiology appreciated Diagnosis/Problems Diagnosis/Problems (1) Chest pain Status: Acute Qualifiers: Qualified Codes: R07.9 - Chest pain, unspecified (2) Severe hypertension Status: Acute Supervisory-Addendum Brief Verification & Attestation Participated in pt care: history, MDM, physical Personally performed: exam, history, MDM, supervision of care Care discussed with: Medical Student Procedures: n/a Results interpretation: Verified all documentation Verification and Attestation of Medical Student E/M Service A medical student performed and documented this service in my presence. I reviewed and verified all information documented by the medical student and made modifications to such information, when appropriate. I personally performed the physical exam and medical decision making. Evelyn Rod, Apr 24, 2019,21:08 ERICA SEWELL,MED STUDENT Apr 24, 2019 11:42 EVELYN ROD DO Apr 24, 2019 21:09
[2019-04-24] MEDS ORDERED: FAMOTIDINE 20 MG (PEPCID) TABLET PO NR (12:45)
[2019-04-24] MEDS ORDERED: PANTOPRAZOLE 40 MG (PROTONIX) TAB PO NR (12:45)
[2019-04-24] MEDS ORDERED: REGADENOSON 0.4 MG/5 ML SYR (LEXISCAN) IV ONE (12:45)
--- NOTE | 2019-04-24 18:06 | Consultation-Cardiology ---
HPI-Cardiology Cardiology Consultation: Date of Consultation 04/24/19 Time Seen by a Provider: 11:00 Date of Admission Attending Physician Evelyn Graham DO Admitting Physician Rashid Natarajan MD Consulting Physician SHUBHAM ELLIS MD, MA, FACP, FACC, FSCAI, CCDS HPI: Chief Complaint: CC: Chest pain HPI Mr. Mcdonald is an 84 year old man who lives at home with his daughter. He reports yesterday he had eaten chili for supper. He then took a nap. He woke up and ate some potato chips then went to bed. He reports around 1:00 in the morning he was awakened with mid-sternal chest pressure which radiated across his chest. He reports the discomfort was constant, rating it an 8 on a 1-10 pain scale. He states he felt some SOB with it, but that did not last. He states after several minutes of the pressure EMS was called. He reports they gave him a nitro sublingual which did resolve the pain after approx 10-15 min utes. He has not had any recurrence. No c/o palpitations, syncope or near syncope. He reports his right foot is frequently cold. He denies any n/v/d. He denies any fever or chills. Review of Systems-Cardiology Review of Systems Constitutional: No chills, No fever, No malaise Eyes: No vision change Ears/Nose/Throat: No epistaxis, No recent hearing loss Respiratory: As described under HPI Cardiovascular: As described under HPI Gastrointestinal: No constipation, No diarrhea; difficulty swallowing (chronic); No nausea, No vomiting Genitourinary: dysuria (chronic); No hematuria Skin: No rash on exposed areas, No ulcerations on exposed areas Psychiatric/Neurological: No anxiety, No depression, No focal weakness, No syncope Hematologic: No bleeding abnormalities REZ-Doffpz-Kketfl Hx Patient Social History Employed/Student: retired Alcohol Use: Denies Use Recreational Drug Use: No Smoking Status: Former Smoker (2-3 months at age 20) Recent Foreign Travel: No Recent Infectious Disease Expo: No Hospitalization with Isolation: Denies Immunizations Up To Date Date of Pneumonia Vaccine: Dec 12, 2018 Date of Influenza Vaccine: Dec 12, 2018 Past Medical History PMH As described under Assessment. Family Medical History Family Medical History: He reports he has 3 brothers who have had CAD. He reports his father and mother both had cancer. Family History: Cardiovascular disease G8 BROTHER FH: esophageal cancer 19 MOTHER Oral cancer 19 FATHER Allergies and Home Medications Allergies Coded Allergies: Sulfa (Sulfonamide Antibiotics) (Unverified Allergy, Severe, 03/23/17) gluten (Verified Allergy, Intermediate, 03/29/17) history of celiac disease. cephalexin (Verified Adverse Reaction, Severe, NAUSEA/DIARRHEA, 03/23/17) clindamycin (Verified Adverse Reaction, Severe, NAUSEA/DIARRHEA, 03/23/17) Home Medications Aspirin 81 Mg Tablet.dr, 81 MG PO DAILY, (Reported) Carboxymethylcellulos/Glycerin 10 Ml Drops.gel, 1 DROP OU TID PRN for DRY EYES, (Reported) Cyanocobalamin (Vitamin B-12) 5,000 Mcg Capsule, 5,000 MCG PO BID, (Reported) Cyclosporine 1 Each Droperette, 1 DROP OU BID, (Reported) LAST FILLED #60 10-17-18 Diclofenac Sodium 75 Mg Tablet.dr, 75 MG PO BID, (Reported) LAST FILLED #180 10-03-18 Enalapril Maleate 10 Mg Tablet, 20 MG PO BID, (Reported) TAKES 2 (10MG) TABLETS Krill/Om-3/Dha/Epa/Phospho/Ast 1 Each Capsule, 500 MG PO BID, (Reported) Mirabegron 50 Mg Tab.er.24h, 50 MG PO DAILY, (Reported) Misoprostol 200 Mcg Tablet, 200 MCG PO BID, (Reported) Multivit-Min/FA/Lycopen/Lutein 1 Each Tablet, 1 TAB PO DAILY, (Reported) Polyethylene Glycol 3350 17 Gm Powd.pack, 17 GM PO DAILY PRN for CONSTIPATION- 2ND LINE, (Reported) Potassium Gluconate 99 Mg Tablet, 99 MG PO DAILY, (Reported) Psyllium Husk 0.4 Gm Capsule, 0.4 GM PO DAILY PRN for LOOSE STOOLS, (Reported) Saw/Vit E/Sod Alexa/Lyc/Beta/Pyg 1 Each Tablet, 1 TAB PO BID, (Reported) Tamsulosin HCl 0.4 Mg Cap, 0.4 MG PO 1730, (Reported) Vit C/E/Zn/Coppr/Lutein/Zeaxan 1 Each Capsule, 1 CAP PO BID, (Reported) Patient Home Medication List Home Medication List Reviewed: Yes Physical Exam-Cardiology Physical Exam Vital Signs/I&O 04/24/19 04/24/19 04/24/19 04/24/19 06:10 06:45 08:00 08:00 Temp 36.6 Pulse 62 69 62 Resp 16 B/P (MAP) 164/84 (110) 184/91 (122) Pulse Ox 97 97 O2 Delivery Room Air Room Air Room Air 04/24/19 04/24/19 04/24/19 04/24/19 09:00 12:13 12:15 12:41 Temp 36.7 Pulse 54 55 Resp 18 B/P (MAP) 158/83 (108) Pulse Ox 98 O2 Delivery Room Air Room Air Room Air 04/24/19 04/24/19 04/24/19 16:00 16:20 17:10 Temp 36.7 Pulse 63 Resp 14 B/P (MAP) 167/92 (117) Pulse Ox 98 O2 Delivery Room Air Room Air Room Air Capillary Refill : Less Than 3 Seconds Constitutional: AAO x 3, well-developed, well-nourished HEENT: PERRL, hearing is well preserved, oral hygience is good Neck: No carotid bruit; carotid pulses are 2 + bilaterally Respiratory: No accessory muscle use, No respiratory distress; chest expansion is symmetric, chest is bilaterally symmetric, lungs clear to auscultation Cardiovascular: regular rate-rhythm; No JVD; S1 and S2 Gastrointestinal: No tender; soft, round, audible bowel sounds Extremities: other (L BKA), no lower extremity edema bilateral Neurologic/Psychiatric: grossly intact (moves all extremities) Skin: No rash on exposed areas, No ulcerations on exposed areas Data Review Labs Laboratory Tests 04/24/19 01:03: White Blood Count 6.3, Red Blood Count 3.86L, Hemoglobin 12.5L, Hematocrit 38L, Mean Corpuscular Volume 99, Mean Corpuscular Hemoglobin 32, Mean Corpuscular Hemoglobin Concent 33, Red Cell Distribution Width 13.6, Platelet Count 241, Mean Platelet Volume 9.9, Neutrophils (%) (Auto) 44, Lymphocytes (%) (Auto) 36, Monocytes (%) (Auto) 14H, Eosinophils (%) (Auto) 5, Basophils (%) (Auto) 1, Neutrophils # (Auto) 2.8, Lymphocytes # (Auto) 2.3, Monocytes # (Auto) 0.9, Eosinophils # (Auto) 0.3, Basophils # (Auto) 0.0, Prothrombin Time 12.1L, INR Comment 0.9, Activated Partial Thromboplast Time 27, Sodium Level 141, Potassium Level 4.6, Chloride Level 105, Carbon Dioxide Level 28, Anion Gap 8, Blood Urea Nitrogen 32H, Creatinine 1.66H, Estimat Glomerular Filtration Rate 40, BUN/Creatinine Ratio 19, Glucose Level 110H, Calcium Level 9.0, Corrected Ca lcium 9.1, Magnesium Level 2.2, Total Bilirubin 0.2, Aspartate Amino Transf (AST/SGOT) 18, Alanine Aminotransferase (ALT/SGPT) 17, Alkaline Phosphatase 94, Myoglobin 80.5, Troponin I < 0.028, Total Protein 7.0, Albumin 3.9, TSH [place] Testing 3.02 04/24/19 05:00: Troponin I < 0.028 Laboratory Tests 04/24/19 01:03 A/P-Cardiology Assessment/Admission Diagnosis Chest pain of undetermined etiology - no evidence of ACS Acute renal insufficiency, managed by the Hospitalist [place] HTN HLD Chronic dysphagia for which he has had recent swallow eval by Dr. 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 Sun Discussion and Recomendations Chest pain of undetermined etiology - no evidence of ACS. MPI to eval for obstructive CAD Continue antihypertensives Continue home medications Monitor lab Replace electrolytes as indicated Echocardiogram to eval structure Further recs will be based on his hospital course We would like to thank medical services for this consult Clinical Quality Measures AMI/AHF: ASA po Prior to arrival: Yes (EN ROUTE [facility]) DVT/VTE Risk/Contraindication: Risk Factor Score Per Nursin RFS Level Per Nursing on Admit: 2=Moderate SHUBHAM ELLIS MD FACP FAC CCDS Apr 24, 2019 18:06
[2019-04-25] VITALS (7 sets, daily range): BP systolic 154–188; BP diastolic 75–92
[2019-04-25 03:36] LABS: HEMOGLOBIN 11.5 G/DL (13.3-17.7); MEAN PLATELET VOLUME 9.4 FL (7.4-10.4); RED CELL DISTRIBUTION WIDTH 13.5 % (10.0-14.5); WHITE BLOOD COUNT 5.5 10^3/uL (4.3-11.0)
[2019-04-25 04:01] LABS: CALCIUM 8.5 MG/DL (8.5-10.1); CREATININE SERUM 1.33 MG/DL (0.60-1.30); MAGNESIUM 1.9 MG/DL (1.6-2.4); POTASSIUM 4.9 MMOL/L (3.6-5.0)
[2019-04-25] MEDS: NS IV 1000 ML 1,000 ML IV SCH ×2 (06:56→21:06)
[2019-04-25] MEDS ORDERED: CATHETER FLUSH 10 ML SYR IV PRN (07:30)
[2019-04-25] MEDS ORDERED: REGADENOSON 0.4 MG/5 ML SYR (LEXISCAN) IV ONE (08:07)
[2019-04-25] MEDS: CLOPIDOGREL 75 MG (PLAVIX) TABLET PO SCH (09:51)
[2019-04-25] MEDS: ASPIRIN E.C. 81 MG (ECOTRIN) TAB PO SCH (09:51)
[2019-04-25] MEDS: lisINopril 20 MG (PRINIVIL) TABLET PO SCH ×2 (09:51→21:06)
[2019-04-25] MEDS: meTOprolol SUCCINATE 100 MG (TOPROL XL) TAB PO SCH (09:53)
[2019-04-25] MEDS: PANTOPRAZOLE 40 MG (PROTONIX) TAB PO SCH (10:03)
[2019-04-25] MEDS ORDERED: FAMOTIDINE 20 MG (PEPCID) TABLET PO PRN (13:02)
--- NOTE | 2019-04-25 13:42 | Progress Note - Hospitalist ---
ERICA SEWELL,MED STUDENT 04/25/19 1342: Subjective HPI/CC On Admission Date Seen by Provider: Apr 25, 2019 Time Seen by Provider: 09:40 CC: Chest pain HPI: This is an 84yoWM with a history of left leg amputation who presents to the ER with chest pain and SOB, Pt had an entire workup that was negative, but elevated BP required admission for close observation and cardiology consultation Subjective/Events-last exam Today Mr. Mcdonald is doing well. He does note an increase in fatigue following his echo and MPI this morning. He did not have any chest pain yesterday after the nitro was given in route to the hospital via EMS but did note a return of chest pain and headache this morning during the procedures which has since decreased in intensity. Blood pressure remains elevated Review of Systems General: No Chills; Fatigue HEENT: Head Aches; No Visual Changes Pulmonary: No Dyspnea, No Cough Cardiovascular: Chest Pain; No: Palpitations Gastrointestinal: No: Nausea, Vomiting, Abdominal Pain Genitourinary: No Dysuria, No Frequency Musculoskeletal: other (left BKA) Neurological: No: Weakness, Confusion Objective Exam Vital Signs Vital Signs Date Time Temp Pulse Resp B/P (MAP) Pulse Ox O2 Delivery O2 Flow Rate FiO2 04/25/19 12:43 59 04/25/19 09:00 Room Air 04/25/19 08:20 174/88 (116) 96 04/25/19 08:00 36.8 18 Capillary Refill : Less Than 3 Seconds General Appearance: No Apparent Distress, WD/WN HEENT: PERRL/EOMI, Moist Mucous Membranes Neck: Non Tender, Supple Respiratory: Chest Non Tender, Lungs Clear, Normal Breath Sounds, No Accessory Muscle Use, No Respiratory Distress Cardiovascular: Regular Rate, Rhythm, No Murmur Gastrointestinal: Normal Bowel Sounds, Non Tender, Soft Extremity: No Pedal Edema, Other (left below the knee amputation) Neurologic/Psychiatric: Alert, Oriented x3, Normal Mood/Affect Skin: Normal Color, Warm/Dry Results/Procedures Lab Laboratory Tests 04/25/19 02:55 Patient resulted labs reviewed. Assessment/Plan Assessment and Plan Assess & Plan/Chief Complaint Assessment: Chest pain Severe hypertension Left BKA Plan: Continue home medications Continue antihypertensives Echo and MPI completed this morning - awaiting results Continue to monitor for recurrence of chest pain Clinical Quality Measures AMI/AHF: ASA po Prior to arrival: Yes (EN ROUTE [facility]) DVT/VTE Risk/Contraindication: Risk Factor Score Per Nursin RFS Level Per Nursing on Admit: 2=Moderate EVELYN ROD DO 04/25/192014: Subjective Subjective/Events-last exam Lexiscan scheduled and completed Echocardiogram completed Systolic BP of 170 Pt very fatigued right now Review of Systems Cardiovascular: Chest Pain Objective Exam General Appearance: No Apparent Distress, WD/WN, Chronically ill Respiratory: Lungs Clear Cardiovascular: Regular Rate, Rhythm Assessment/Plan Assessment and Plan Assess & Plan/Chief Complaint Cardiac cath in am Needs therapy to regain strength after testing is completed Diagnosis/Problems Diagnosis/Problems (1) Chest pain Status: Acute Qualifiers: Qualified Codes: R07.9 - Chest pain, unspecified (2) Elevated serum creatinine Status: Chronic (3) Normocytic anemia Status: Acute (4) Acute renal insufficiency Status: Resolved Resolution Date/Time: 03/25/17 @ 10:36 (5) Essential (primary) hypertension Status: Chronic (6) Acute kidney injury Status: Acute (7) Severe hypertension Status: Acute Supervisory-Addendum Brief Verification & Attestation Participated in pt care: history, MDM, physical Personally performed: exam, history, MDM, supervision of care Care discussed with: Medical Student Procedures: n/a Results interpretation: Verified all documentation Verification and Attestation of Medical Student E/M Service A medical student performed and documented this service in my presence. I reviewed and verified all information documented by the medical student and made modifications to such information, when appropriate. I personally performed the physical exam and medical decision making. Evelyn Rod, Apr 25, 2019,20:14 ERICA SEWELL,MED STUDENT Apr 25, 2019 13:42 EVELYN ROD DO Apr 25, 2019 20:15
--- NOTE | 2019-04-25 13:55 | Progress Note - Cardiology ---
Cardiology SOAP Progress Note Subjective: Had another episode of chest discomfort this am Denies palp or syncope Denies shortness of breath Chronic dysphagia No n/v/d Objective: I&O/Vital Signs 04/25/19 04/25/19 04/25/19 04/25/19 04:10 04:35 06:39 08:00 Temp 36.4 Pulse 58 53 Resp 16 B/P (MAP) 168/83 (111) Pulse Ox 97 O2 Delivery Room Air Room Air Room Air 04/25/19 04/25/19 04/25/19 04/25/19 08:00 08:20 09:00 12:43 Temp 36.8 Pulse 63 83 59 Resp 18 B/P (MAP) 162/88 (112) 174/88 (116) Pulse Ox 100 96 O2 Delivery Room Air 04/25/19 00:00 Intake Total 1450 ml Output Total 900 ml Balance 550 ml Weight (Pounds): 140 Weight (Ounces): 0.0 Weight (Calculated Kilograms): 63.087744 Constitutional: AAO x 3, well-developed, well-nourished Respiratory: No accessory muscle use, No respiratory distress; chest expansion is symmetric, chest is bilaterally symmetric, lungs clear to auscultation Cardiovascular: regular rate-rhythm; No JVD; S1 and S2 Gastrointestional: No tender; soft, round, audible bowel sounds Extremities: other (L BKA), no lower extremity edema bilateral Neurologic/Psychiatric: grossly intact (moves all extremities) Skin: No rash on exposed areas, No ulcerations on exposed areas Results/Procedures: Labs Laboratory Tests 04/25/19 02:55: White Blood Count 5.5, Red Blood Count 3.55L, Hemoglobin 11.5L, Hematocrit 35L, Mean Corpuscular Volume 99, Mean Corpuscular Hemoglobin 32, Mean Corpuscular Hemoglobin Concent 33, Red Cell Distribution Width 13.5, Platelet Count 224, Mean Platelet Volume 9.4, Sodium Level 140, Potassium Level 4.9, Chloride Level 110H, Carbon Dioxide Level 27, Anion Gap 3L, Blood Urea Nitrogen 28H, Creatinine 1.33H, Estimat Glomerular Filtration Rate 51, BUN/Creatinine Ratio 21, Glucose Level 86, Calcium Level 8.5, Magnesium Level 1.9, Triglycerides Level 35, Cholesterol Level 118, LDL Cholesterol Direct 76, VLDL Cholesterol 7, HDL Cholesterol 37L Laboratory Tests 04/24/19 01:03 04/25/19 02:55 A/P: Assessment: Chest pain of undetermined etiology - no evidence of ACS MPI of 04/25/19: no ischemia or infarction, LVEF 39% Acute renal insufficiency, managed by the Hospitalist [place] HTN HLD Chronic dysphagia for which he has had recent swallow eval by Dr. 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 Sun Plan: * I reviewed his MPI results with him * Given continuing episodes of chest discomfort and indication of mild to mod cardiomyopathy on MPI (albeit no infarction or ischemia) we recommend card cath * I discussed the rationale and pros and cons of card cath with him. He wishes to proceed. We will schedule for tomorrow * Echo today * Monitor labs Clinical Quality Measures AMI/AHF: ASA po Prior to arrival: Yes ([facility] ROU[facility]) SHUBHAM ELLIS MD FACP FACC CCDS Apr 25, 2019 13:55
--- NOTE | 2019-04-25 14:33 | STRESS TEST ---
DATE OF SERVICE: 04/25/2019 RESTING AND POST REGADENOSON TECHNETIUM-99M TETROFOSMIN SPECT CT IMAGING ORDERING PHYSICIAN: Rachel Edmonds APRN PRIMARY PHYSICIAN: Dr. Natarajan. OTHER PHYSICIAN: Dr. Graham, Dr. Vargas. CLINICAL DIAGNOSIS: Chest discomfort. Baseline images were carried out after injection of 10.76 mCi of technetium-99m Tetrofosmin. This was followed by 0.4 mg regadenoson and 31.1 mCi of technetium-99m Tetrofosmin for stress imaging. The electrocardiogram showed sinus rhythm at baseline with voltage for left ventricular hypertrophy. The electrocardiogram did not change significantly with regadenoson infusion. He tolerated the procedure well. Review of images at rest and following stress does not indicate any significant perfusion defects consistent with myocardial ischemia or infarction. Some degree of diaphragmatic attenuation seen both at rest and following regadenoson infusion. Gated images show normal regional wall motion, including the diaphragmatic wall of the left ventricle. Left ventricular ejection fraction is calculated to be 39%. Subjectively, it appears somewhat higher than that. CONCLUSIONS: 1. No evidence of significant myocardial ischemia or infarction. 2. No regional wall motion abnormality. 3. Left ventricular ejection fraction is calculated to be 39%. Subjectively, it appears somewhat higher than that. Job ID: [id number] DocumentID: [id number] Dictated Date: 04/25/2019 11:57:27 White Washer Date: 04/25/2019 14:31:19 Dictated By: SHUBHAM VARGAS MD, MA, FACP, FACC,
[2019-04-25] MEDS: hydrALAZINE (APRESOLINE) 25 MG TAB PO PRN (17:02)
[2019-04-25] MEDS ORDERED: CALCIUM CARBONATE 500 MG (TUMS) TAB.CHEW PO PRN (20:15)
[2019-04-25] MEDS ORDERED: MELATONIN 3 MG TABLET PO PRN (20:15)
[2019-04-25] MEDS ORDERED: ALPRAZolam 0.25 MG (XANAX) TAB PO PRN (20:15)
[2019-04-25] MEDS ORDERED: diphenhydrAMINE 25 MG TAB (BENADRYL) PO PRN (20:15)
[2019-04-25] MEDS ORDERED: ONDANSETRON 4 MG/2 ML (SDV) Z0FRAN IVP PRN (20:15)
[2019-04-25] MEDS ORDERED: DOCUSATE SODIUM 100 MG (COLACE) CAP PO PRN (20:15)
[2019-04-25] MEDS ORDERED: ENOXAPARIN 40 MG/0.4 ML (LOVENOX) SYR SC SCH (20:15)
[2019-04-25] MEDS ORDERED: ACETAMINOPHEN 500 MG TAB (TYLENOL) PO PRN (20:15)
[2019-04-25] MEDS ORDERED: HYDROcodone/APAP 5 MG/325 MG (LORTAB) TAB PO PRN (20:15)
[2019-04-25] MEDS: SENNA W/DOCUSATE (SENOKOT S) TABLET PO SCH (21:06)
[2019-04-26 04:08] LABS: BASOPHILS % (AUTO) 1 % (0-10); EOSINOPHILS # (AUTO) 0.3 10^3/uL (0.0-0.3); EOSINOPHILS % (AUTO) 4 % (0-10); HEMATOCRIT 40 % (40-54); HEMOGLOBIN 13.4 G/DL (13.3-17.7); LYMPHOCYTES # (AUTO) 1.9 X 10^3 (1.0-4.0); LYMPHOCYTES % (AUTO) 28 % (12-44); MEAN CORPUSCULAR HEMOGLOBIN 33 PG (25-34); MEAN CORPUSCULAR HGB CONC 34 G/DL (32-36); MEAN CORPUSCULAR VOLUME 96 FL (80-99); MEAN PLATELET VOLUME 9.8 FL (7.4-10.4); MONOCYTES # (AUTO) 0.6 X 10^3 (0.0-1.0); MONOCYTES % (AUTO) 9 % (0-12); NEUTROPHILS % (AUTO) 58 % (42-75); PLATELET COUNT 239 10^3/uL (130-400); RED CELL DISTRIBUTION WIDTH 12.9 % (10.0-14.5); WHITE BLOOD COUNT 6.9 10^3/uL (4.3-11.0)
[2019-04-26 04:37] LABS: ALBUMIN 3.4 GM/DL (3.2-4.5); BILIRUBIN,TOTAL 0.3 MG/DL (0.1-1.0); CALCIUM 8.6 MG/DL (8.5-10.1); CREATININE SERUM 1.27 MG/DL (0.60-1.30); POTASSIUM 3.9 MMOL/L (3.6-5.0); TOTAL PROTEIN 6.3 GM/DL (6.4-8.2)
[2019-04-26 08:00] VITALS: BP 165/96
[2019-04-26] MEDS: CLOPIDOGREL 75 MG (PLAVIX) TABLET PO SCH (09:29)
[2019-04-26] MEDS: SENNA W/DOCUSATE (SENOKOT S) TABLET PO SCH (09:29)
[2019-04-26] MEDS: ASPIRIN E.C. 81 MG (ECOTRIN) TAB PO SCH ×2 (09:29→13:56)
[2019-04-26] MEDS: PANTOPRAZOLE 40 MG (PROTONIX) TAB PO SCH ×2 (09:29→13:56)
[2019-04-26] MEDS: meTOprolol SUCCINATE 100 MG (TOPROL XL) TAB PO SCH ×2 (09:29→13:56)
[2019-04-26] MEDS: lisINopril 20 MG (PRINIVIL) TABLET PO SCH ×2 (09:30→13:56)
[2019-04-26] MEDS ORDERED: HEParin (CATH LAB) 2,000 ML IV ONE (09:33)
[2019-04-26] MEDS ORDERED: LIDOCAINE 1% INJ 20 ML 20 ML VIAL ONE (09:33)
--- NOTE | 2019-04-26 10:14 | Physical Therapy Evaluation ---
PT Evaluation-General Medical Diagnosis Admission Date Apr 24, 2019 at 02:37 Medical Diagnosis: CP/HTN Onset Date: Apr 24, 2019 Therapy Diagnosis Therapy Diagnosis: debility/weakness Height/Weight Height (Feet): 5 Height (Inches): 9.00 Weight (Pounds): 140 Weight (Ounces): 0.0 Precautions Precautions/Isolations: Fall Prevention, Standard Precautions Referral Physician: Gladys Reason for Referral: Evaluation/Treatment Medical History Pertinent Medical History: Arthritis, HTN Additional Medical History left BKA Current History EMS with sudden onset CP from sleep with elevated HTN Reviewed History: Yes Social History Home: Single Level Current Living Status: Children Prior Prior Level of Function SCALE: Activities may be completed with or without assistive devices. 5-Bdrkpisekz-ppqejsq completes the activity by him/herself with no assistance from a helper. 5-Set-up or Clean-up Assistance-helper sets up or cleans up; patient completes activity. [place] assists only prior to or following the activity. 4-Supervision or Touching Assistance-helper provides verbal cues and/or touching/steadying and/or contact guard assistance as patient completes activity. Assistance may be provided throughout the activity or intermittently. 3-Partial/Moderate Assistance-helper does LESS THAN HALF the effort. [place] lifts, holds or supports trunk or limbs, but provides less than half the effort. 2-Substantial/Maximal Assistance-helper does MORE THAN HALF the effort. [place] lifts or holds trunk or limbs and provides more than half the effort. 1-Etwxrcucd-kytcnw does ALL the effort. Patient does none of the effort to complete the activity. Or, the assistance of 2 or more helpers is required for the patient to complete the activity. If activity was not attempted, code reason: 7-Patient Refused. 9-Not Applicable-not attempted and the patient did not perform the activity before the current illness, exacerbation or injury. 10-Not Attempted due to Environmental Limitations-(lack of equipment, weather restraints, etc.). 88-Not Attempted due to Medical Conditions or Safety Concerns. Bed Mobility: 6 Transfers (B,C,W/C): 6 Gait: 6 Indoor Mobility (Ambulation): Independent Prior Devices Use: Walker PT Evaluation-Current Subjective Patient dons left prosthesis independently without difficulty. Pain Numeric Pain Scale: 0-No Pain Location: No Pain Reported Objective Patient Orientation: Normal For Age Attachments: IV ROM/Strength ROM Lower Extremities bilateral LE WFL Strength Lower Extremities 4/5 grossly bilateral LE Integumentary/Posture Integumentary refer to nursing notes Bowel Incontinence: No Bladder Incontinence: No Posture kyphotic Neuromuscular (Tone, Coordination, Reflexes) grossly intact Sensory Vision: Wears Glasses Hearing: Functional Sensation Right Lower Extremit: Impaired Sensation Left Lower Extremity: Impaired Transfers Roll Left to Right (QC): 6 Sit to Lying (QC): 6 Lying to Sitting/Side of Bed(Q: 6 Sit to Stand (QC): 6 Chair/Zig-jb-Hyklk Xfer(QC): 6 Gait Does the Patient Walk?: Yes Mode of Locomotion: Walk Anticipated Mode of Locomotion: Walk Walk 10 feet (QC): 6 Walk 50 ft with 2 Turns(QC): 6 Walk 150 ft (QC): 6 Distance: 275' Gait Assistive Device: FWW Comments/Gait Description safe and functional with no deviation Balance Sitting Static: Normal Sitting Dynamic: Normal Standing Static: Normal Standing Dynamic: Normal Assessment/Needs 84 y.o. male, will be seen x 2 sessions to address functional mobility to ensure safe return to home with family at maximum LOF. Rehab Potential: Fair PT Feather Maker Goals Feather Maker Goals PT Detention Goals Time Frame: Apr 27, 2019 Roll Left & Right (QC): 6 Sit to Lying (QC): 6 Lying-Sitting on Side/Bed(QC): 6 Sit to Stand (QC): 6 Chair/Ckj-pd-Wjfgf Xfer(QC): 6 Does the Patient Walk: Yes Walk 10 feet (QC): 6 Walk 50ft with 2 Turns (QC): 6 Walk 150 ft (QC): 6 PT Plan Treatment/Plan Treatment Plan: Continue Plan of Care Treatment Plan: Education, Functional Activity Shamir, Functional Strength, Gait, Safety, Therapeutic Exercise, Transfers Treatment Duration: Apr 27, 2019 Frequency: 2 times per week Estimated Hrs Per Day: .25 hour per day Patient and/or Family Agrees t: Yes Time/GCodes Time In: 815 Time Out: 843 Total Billed Treatment Time: 28 Total Billed Treatment 1 visit EVModC 15 min GT 13 min ODESSA CHASE PT Apr 26, 2019 10:14
--- NOTE | 2019-04-26 10:28 | Occupational Therapy Eval ---
OT Evaluation-General/PLF Medical Diagnosis Admission Date Apr 24, 2019 at 02:37 Medical Diagnosis: CP/HTN Onset Date: Apr 24, 2019 Therapy Diagnosis Therapy Diagnosis: decreased ADL function Height/Weight Height (Feet): 5 Height (Inches): 9.00 Weight (Pounds): 140 Weight (Ounces): 0.0 Precautions Precautions/Isolations: Fall Prevention, Standard Precautions Safety Interventions: None Weight Bear Status Weight Bearing Restriction: Weight Bearing/Tolerated Referral Physician: Gladys Referral Reason: Activity Tolerance, Self Care, Evaluation/Treatment, Strengthening/ROM Medical History Pertinent Medical History: Arthritis, HTN Additional Medical History acute renal insufficiency, HTN, HLD, chronic dysphagia, L BKA, arthritis Current History Pt was experiencing chest pressure on 04/24, admitted to cardiac step-down Reviewed History: Yes Social History Home: Single Level Current Living Status: Children Entry Into Home: Stairs Without Railing Steps Into Home: 1 ADL-Prior Level of Function SCALE: Activities may be completed with or without assistive devices. 3-Oopstrbhit-bqqclsy completes the activity by him/herself with no assistance from a helper. 5-Set-up or Clean-up Assistance-helper sets up or cleans up; patient completes activity. [place] assists only prior to or following the activity. 4-Supervision or Touching Assistance-helper provides verbal cues and/or touching/steadying and/or contact guard assistance as patient completes activity. Assistance may be provided throughout the activity or intermittently. 3-Partial/Moderate Assistance-helper does LESS THAN HALF the effort. [place] lifts, holds or supports trunk or limbs, but provides less than half the effort. 2-Substantial/Maximal Assistance-helper does MORE THAN HALF the effort. [place] lifts or holds trunk or limbs and provides more than half the effort. 2-Tdunbxuoj-sfwole does ALL the effort. Patient does none of the effort to complete the activity. Or, the assistance of 2 or more helpers is required for the patient to complete the activity. If activity was not attempted, code reason: 7-Patient Refused. 9-Not Applicable-not attempted and the patient did not perform the activity before the current illness, exacerbation or injury. 10-Not Attempted due to Environmental Limitations-(lack of equipment, weather restraints, etc.). 88-Not Attempted due to Medical Conditions or Safety Concerns. ADL PLOF Comments Pt states IND within ADLs with no AE. Self Care: Independent Functional Cognition: Independent DME/Equipment: Bath Bench, Tub/Shower DME/Equipment Comments bath bench, FWW, 4 power chairs Occupation: [address] Self: Yes (in charge of driving family to apts.) OT Current Status Subjective Pt seen in recliner chair, denies current pain. Agreeable to OT eval/ treat Mental Status/Objective Patient Orientation: Person, Place, Situation Attachments: IV, Telemetry Current Glasses/Contacts: Yes Hearing Aids: No Dentures/Partials: No Hand Dominance: Right Upper Extremity ROM WLF BUE Upper Extremity Coordination WFL BUE Upper Extremity Sensation WFL BUE Upper Extremity Strength WFL 4-/5 ADL-Treatment Eating (QC): 6 On/Off Footwear (QC): 6 Other Treatments Pt completes oral history, very talkative. Pt not oriented to date, but states he has been losing track of date. Date written on board. Pt states no pain, DO comes in and deep breaths create sharp pain in L chest. DO noted. Pt denies ADLs, agrees to take prosthesis off/ shoe on R off. Pt completes with IND. Pt states vision has been "blurry" since admission, though states he's been using his old glasses for ~1 month. Pt states blurriness did not occur prior to admission but has since been an issue. Cervical range WFL, pt tracks finger with accuracy in all planes but lower planes. Pt in charge of driving daughter and sons' father in law to all appointments- pt would benefit from eye screening. Pt states during stay has been able to get to/from commode with nursing present and wipe self. Pt educated on OT role and pt and OT agree to continue to monitor and increase safety while admitted to ensure pt able to complete all I/ADLs with inc reased endurance/ safety when home. Education OT Patient Education: Purpose of tx/functional activities, Rehab process, Safety issues Teaching Recipient: Patient Teaching Methods: Demonstration, Discussion Response to Teaching: Verbalize Understanding, Return Demonstration OT Respiratory Director Goals Respiratory Director Goals Time Frame: May 03, 2019 Eating (QC): 6 Oral Hygiene (QC): 6 Toileting Hygiene (QC): 6 Shower/Bathe Self (QC): 6 Upper Body Dressing (QC): 6 Lower Body Dressing (QC): 6 On/Off Footwear (QC): 6 Additional Goals: 1-Demonstrate ADL Tasks, 2-Verbalize Understanding, 3- ImproveStrength/Shamir 1=Demonstrate adherence to instructed precautions during ADL tasks. 2=Patient will verbalize/demonstrate understanding of assistive devices/modifications for ADL. 3=Patient will improve strength/tolerance for activity to enable patient to perform ADL's. OT Education/Plan Problem List/Assessment Assessment: Decreased Activ Tolerance, Impaired I ADL's, Impaired Self-Care Skills Discharge Recommendations Plan/Recommendations: Continue POC Therapy Discharge Recommendati: Other, See Comments (vision screening (per pt blurriness)) Equpiment Recommendations-D/C: None Treatment Plan/Plan of Care Treatment,Training & Education: Yes Patient would benefit from OT for education, treatment and training to promote independence in ADL's, mobility, safety and/or upper extremity function for ADL's. Plan of Care: ADL Retraining, Functional Mobility, UE Funct Exercise/Act Treatment Duration: May 03, 2019 Frequency: 5 times per week Estimated Hrs Per Day: .25 hour per day Agreement: Yes Rehab Potential: Fair Time/GCodes Start Time: 09:50 Stop Time: 10:08 Total Time Billed (hr/min): 18 Billed Treatment Time 1, EVL (18) DAVID LEZAMA OTR Apr 26, 2019 10:28
[2019-04-26] MEDS ORDERED: MIDAZOLAM 5 MG/5 ML (VERSED) VIAL ONE (11:26)
[2019-04-26] MEDS ORDERED: fentaNYL INJECTION 100 MCG/2 ML AMP ONE (11:26)
[2019-04-26] MEDS ORDERED: NS IV 1000 ML 1,000 ML ONE (11:41)
[2019-04-26] MEDS: NS IV 1000 ML 1,000 ML IV SCH ×3 (11:52→15:37)
[2019-04-26 12:00] VITALS: BP 190/83
--- NOTE | 2019-04-26 13:12 | Discharge Summary ---
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 cephalexin (Verified Adverse Reaction, Severe, NAUSEA/DIARRHEA, 03/23/17) clindamycin (Verified Adverse Reaction, Severe, NAUSEA/DIARRHEA, 03/23/17) Vitals & I&Os Vital Signs Date Time Temp Pulse Resp B/P (MAP) Pulse Ox O2 Delivery O2 Flow Rate FiO2 04/26/19 12:19 58 04/26/19 12:00 190/83 (118) Room Air 04/25/19 19:48 37.0 18 97 General Appearance: No Apparent Distress, WD/WN HEENT: PERRL/EOMI Respiratory: Chest Non Tender, Lungs Clear, Normal Breath Sounds, No Accessory Muscle Use, No Respiratory Distress Cardiovascular: Regular Rate, Rhythm, No Murmur Extremity: No Calf Tenderness, No Pedal Edema, Other (L BKA) Skin: Normal Color, Warm/Dry Neurologic/Psychiatric: Alert, Oriented x3, Normal Mood/Affect Hospital Course Mr. Mcdonald is an 84 year old male that presented to the emergency department for chest pain on 04/24/19. The pain had began that night around midnight and awoke him from sleep. He describes the pain as midchest, an 8/10, and as pressure. EMS was called and he was given nitro and ASA in route to the hospital with relief of his chest pain. At the arrival of EMS his blood pressure was 200's/100's. It improved after the nitro was administered. He arrived with his daughter whom he lives with. He was admitted tot he ICU and evaluated by cardiology. The echocardiogram showed a LVEF of 39%. MPI showed no ischemia or infarction. Mild-moderate cardiomyopathy noted He had a recurrence of chest pain during the procedure that resolved spontaneously after. He admits to some SOB but denies nausea, vomiting, diarrhea, diaphoresis, palpitations, fever, or chills. He has not had a recurrence of chest pain since that time. He is scheduled for a heart catheterization this afternoon. During his stay he has also had a PT/OT evaluation. Labs (last 24 hrs) Laboratory Tests 04/26/19 03:42: White Blood Count 6.9, Red Blood Count 4.11L, Hemoglobin 13.4, Hematocrit 40, Mean Corpuscular Volume 96, Mean Corpuscular Hemoglobin 33, Mean Corpuscular Hemoglobin Concent 34, Red Cell Distribution Width 12.9, Platelet Count 239, Mean Platelet Volume 9.8, Neutrophils (%) (Auto) 58, Lymphocytes (%) (Auto) 28, Monocytes (%) (Auto) 9, Eosinophils (%) (Auto) 4, Basophils (%) (Auto) 1, Neutrophils # (Auto) 4.0, Lymphocytes # (Auto) 1.9, Monocytes # (Auto) 0.6, Eosinophils # (Auto) 0.3, Basophils # (Auto) 0.0, Sodium Level 140, Potassium Level 3.9, Chloride Level 107, Carbon Dioxide Level 25, Anion Gap 8, Blood Urea Nitrogen 23H, Creatinine 1.27, Estimat Glomerular Filtration Rate 54, BUN/Creatinine Ratio 18, Glucose Level 77, Calcium Level 8.6, Corrected Calcium 9.1, Total Bilirubin 0.3, Aspartate Amino Transf (AST/SGOT) 17, Alanine Aminotransferase (ALT/SGPT) 17, Alkaline Phosphatase 97, Total Protein 6.3L, Albumin 3.4 Patient resulted labs reviewed. Discharge Home Medications: Active Scripts Active Reported Myrbetriq (Mirabegron) 50 Mg Tab.er.24h 50 Mg PO DAILY Flomax (Tamsulosin HCl) 0.4 Mg Cap 0.4 Mg PO 1730 Prostate Health Caplet (Saw/Vit E/Sod Alexa/Lyc/Beta/Pyg) 1 Each Tablet 1 Tab PO BID Potassium (Potassium Gluconate) 99 Mg Tablet 99 Mg PO DAILY Krill Oil 500 mg Softgel (Krill/Om-3/Dha/Epa/Phospho/Ast) 1 Each Capsule 500 Mg PO BID Metamucil (Psyllium Husk) 0.4 Gm Capsule 0.4 Gm PO DAILY PRN Men 50 Plus Multivitamin Tab (Multivit-Min/FA/Lycopen/Lutein) 1 Each Tablet 1 Tab PO DAILY Preservision Areds 2 Softgel (Vit C/E/Zn/Coppr/Lutein/Zeaxan) 1 Each Capsule 1 Cap PO BID Vitamin B-12 (Cyanocobalamin (Vitamin B-12)) 5,000 Mcg Capsule 5,000 Mcg PO BID Aspirin EC (Aspirin) 81 Mg Tablet.dr 81 Mg PO DAILY Refresh Optive Gel Eye Drops (Carboxymethylcellulos/Glycerin) 10 Ml Drops.gel 1 Drop OU TID PRN Miralax (Polyethylene Glycol 3350) 17 Gm Powd.pack 17 Gm PO DAILY PRN Enalapril Maleate 10 Mg Tablet 20 Mg PO BID TAKES 2 (10MG) TABLETS Diclofenac Sodium 75 Mg Tablet.dr 75 Mg PO BID LAST FILLED #180 10-03-18 Misoprostol 200 Mcg Tablet 200 Mcg PO BID Restasis (Cyclosporine) 1 Each Droperette 1 Drop OU BID LAST FILLED #60 10-17-18 Instructions to patient/family Please see electronic discharge instructions given to patient. Clinical Quality Measures AMI/AHF: ASA po Prior to arrival: Yes (EN ROUTE [facility]) DVT/VTE Risk/Contraindication: Risk Factor Score Per Nursin RFS Level Per Nursing on Admit: 2=Moderate VIOLAEVELYN DO 04/27/19 1605: Diagnosis/Chief Complaint Discharge Diagnosis Pt doing pretty well. Having a little chest pain while he was working with PT. Cardiac catheterization today. (1) Angina pectoris (2) CAD (coronary artery disease) (3) S/P cardiac cath Discharge Summary Discharge Physical Exam Allergies: Coded Allergies: Sulfa (Sulfonamide Antibiotics) (Unverified Allergy, Severe, 03/23/17) gluten (Verified Allergy, Intermediate, 03/29/17) history of celiac disease. cephalexin (Verified Adverse Reaction, Severe, NAUSEA/DIARRHEA, 03/23/17) clindamycin (Verified Adverse Reaction, Severe, NAUSEA/DIARRHEA, 03/23/17) General Appearance: No Apparent Distress, WD/WN, Chronically ill Neurologic/Psychiatric: Alert, Oriented x3, No Motor/Sensory Deficits, Normal Mood/Affect Hospital Course Was the Problem List Reviewed?: Yes Discussion & Recommendations Discharge Planning: <30 minutes discharge planning Supervisory-Addendum Brief Verification & Attestation Participated in pt care: history, MDM, physical Personally performed: exam, history, MDM, supervision of care Care discussed with: Medical Student Procedures: n/a Results interpretation: Verified all documentation Verification and Attestation of Medical Student E/M Service A medical student performed and documented this service in my presence. I reviewed and verified all information documented by the medical student and made modifications to such information, when appropriate. I personally performed the physical exam and medical decision making. Evelyn Rod, Apr 27, 2019,16:05 Problem Qualifiers (1) Chest pain: Chest pain type: unspecified Qualified Codes: R07.9 - Chest pain, unspecified ERICA SEWELL MED STUDENT Apr 26, 2019 13:12 EVELYN ROD DO Apr 27, 2019 16:05
--- NOTE | 2019-04-26 13:18 | CARDIAC CATHETERIZATION ---
DATE OF SERVICE: 04/26/2019 CARDIAC CATHETERIZATION REPORT The patient is an 84-year-old man who has coronary risk factors. He was admitted with chest discomfort. Myocardial perfusion imaging did not indicate significant ischemia, but did indicate some impairment, ejection fraction. He continued to have chest discomfort. Cardiac catheterization was carried out after having obtained an informed consent. DESCRIPTION OF PROCEDURE: He was brought to the cardiac catheterization laboratory in a fasting state. Right groin was prepared and draped in the usual sterile fashion. Lidocaine 1% for local anesthesia. Modified Seldinger technique was used to advance a 5-English sheath in right femoral artery. Catheter exchanges were carried out over an exchange length Storq wire. We used a 5-English JL4 catheter for the left coronary angiography and 5-English JR4 catheter for right coronary angiography. We used a 5-English pigtail catheter for left heart catheterization and left ventricular angiography. The catheter was removed. Angiography of the right femoral artery had been carried out through the sheath at the beginning of the procedure. At the end of the procedure, Mynx was used to achieve hemostasis. He tolerated the procedure well. HEMODYNAMICS: Left ventricular end-diastolic pressure following coronary angiography was 10 mmHg. There is no significant pressure gradient on pullback across the aortic valve. Ascending aortic pressure was 163/66 with a mean 103 mmHg. LEFT VENTRICULAR ANGIOGRAPHY: Left ventricular angiography was carried out in the right anterior oblique projection. Global left ventricular systolic function, normal regional wall motion abnormalities seen. Left ventricular ejection fraction approximately 60%. CORONARY ANGIOGRAPHY: Coronary calcification is seen. Left main coronary artery does not exhibit significant disease. Left anterior descending artery has 30% ostial and 50% mid vessel stenoses. The mid to distal left anterior descending artery has 70% to 80% stenosis. The left circumflex artery has a bifurcation disease and a large bifurcating obtuse marginal. The disease is bifurcation and the stenoses are up to 80%. The right coronary artery has 40% mid vessel stenosis. CONCLUSIONS: 1. Coronary artery disease consisting of 70% mid to distal left anterior descending, 80% bifurcation stenosis in a large obtuse marginal, and 40% mid vessel stenosis in the right coronary. 2. Normal global left ventricular systolic function with ejection fraction of 60%. 3. Normal left ventricular end-diastolic pressure. DISCUSSION AND RECOMMENDATIONS: Our plan is to continue his coronary medication regimen. We are contacting the cardiovascular surgical service in [place] to see if the patient would be a suitable candidate for bypass surgery. If he is not found to be a suitable candidate, the option would be to consider percutaneous intervention to the bifurcation left circumflex stenosis or to continue medical therapy. Job ID: [id number] DocumentID: [id number] Dictated Date: 04/26/2019 12:58:15 Assembly Line Supervisor Date: 04/26/2019 13:17:30 Dictated By: SHUBHAM ELLIS MD, MA, FACP, FACC,
--- NOTE | 2019-04-26 13:22 | Cardiac Procedure Note-CS/ASA ---
Pre-Procedure Note Pre-Op Procedure Note H&P Reviewed The H&P was reviewed, patient examined and no changes noted. Date H&P Reviewed: Apr 26, 2019 Time H&P Reviewed: 12:10 Conscious Sedation Pre-Proced Time 12:10 ASA Score 3 For ASA 3 and 4: Consider anesthesia and medical clearance. Also, for patients with a history of failed moderate sedation consider anesthesia. Airway Lungs Heart ASA score ASA 1: a normal healthy patient ASA 2: a patient with a mild systemic disease (mid diabetes, controlled hypertension, obesity ASA 3: a patient with a severe systemic disease that limits activity (angina, COPD, prior Myocardial infarction) ASA 4: a patient with an incapacitating disease that is a constant threat to life (CHF, renal failure) ASA 5: a moribund patient not expected to survive 24 hrs. (ruptured aneurysm) ASA 6: a declared brain- patient whose organs are being harvested. For emergent operations, add the letter E after the classification Mallampati Classification Grade 2 Sedation Plan Analgesia, Amnesia, Plan communicated to team members, Discussed options with patient/fam, Discussed risks with patient/fam The patient is an appropriate candidate to undergo the planned procedure, sedation, and anesthesia. The patient immediately re-assessed prior to indication. SHUBHAM ELLIS MD FACP FAC CCDS Apr 26, 2019 13:21
[2019-04-26] MEDS ORDERED: PATIENT MAY USE OWN MEDS, ALL PO SCH (13:30)
--- NOTE | 2019-04-26 13:31 | Progress Note - Cardiology ---
Cardiology SOAP Progress Note Subjective: No further cp since yesterday am No shortness of breath or palp or syncope No n/v/d Objective: I&O/Vital Signs 04/26/19 04/26/19 04/26/19 04/26/19 04:00 07:00 08:00 12:00 Pulse 55 63 54 B/P (MAP) 165/96 (119) 190/83 (118) O2 Delivery Room Air Room Air Room Air 04/26/19 12:19 Pulse 58 04/26/19 00:00 Intake Total 800 ml Output Total 1625 ml Balance -825 ml Weight (Pounds): 140 Weight (Ounces): 0.0 Weight (Calculated Kilograms): 63.228334 Constitutional: AAO x 3, well-developed, well-nourished Respiratory: No accessory muscle use, No respiratory distress; chest expansion is symmetric, chest is bilaterally symmetric, lungs clear to auscultation Cardiovascular: regular rate-rhythm; No JVD; S1 and S2 Gastrointestional: No tender; soft, round, audible bowel sounds Extremities: other (L BKA), no lower extremity edema bilateral Neurologic/Psychiatric: grossly intact (moves all extremities) Skin: No rash on exposed areas, No ulcerations on exposed areas Results/Procedures: Labs Laboratory Tests 04/26/19 03:42: White Blood Count 6.9, Red Blood Count 4.11L, Hemoglobin 13.4, Hematocrit 40, Mean Corpuscular Volume 96, Mean Corpuscular Hemoglobin 33, Mean Corpuscular Hemoglobin Concent 34, Red Cell Distribution Width 12.9, Platelet Count 239, Mean Platelet Volume 9.8, Neutrophils (%) (Auto) 58, Lymphocytes (%) (Auto) 28, Monocytes (%) (Auto) 9, Eosinophils (%) (Auto) 4, Basophils (%) (Auto) 1, Neutrophils # (Auto) 4.0, Lymphocytes # (Auto) 1.9, Monocytes # (Auto) 0.6, Eosinophils # (Auto) 0.3, Basophils # (Auto) 0.0, Sodium Level 140, Potassium Level 3.9, Chloride Level 107, Carbon Dioxide Level 25, Anion Gap 8, Blood Urea Nitrogen 23H, Creatinine 1.27, Estimat Glomerular Filtration Rate 54, BUN/Creatinine Ratio 18, Glucose Level 77, Calcium Level 8.6, Corrected Calcium 9.1, Total Bilirubin 0.3, Aspartate Amino Transf (AST/SGOT) 17, Alanine Aminotransferase (ALT/SGPT) 17, Alkaline Phosphatase 97, Total Protein 6.3L, A lbumin 3.4 Laboratory Tests 04/25/19 02:55 04/26/19 03:42 A/P: Assessment: Chest pain, likely angina Card cath of 04/26/19: 70% mid LAD, 80% bifurcation stenosis in a large OM, 40% mid RCA, LVEDP 10 mmHg, LVEF 60% Acute renal insufficiency, managed by the Hospitalist [place], improving HTN HLD Chronic dysphagia for which he has had recent swallow eval by Dr. 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 Sun Plan: * I reviewed his cath results with him. CABG appears to be the best treatment option. * I spoke with Dr Tucker of CV Surg at [facility]. He has reviewed the films and accepted the patient in transfer. We're making arrangements Clinical Quality Measures AMI/AHF: ASA po Prior to arrival: Yes (EN ROUTE [facility]) SHUBHAM ELLIS MD FACP FAC CCDS Apr 26, 2019 13:31
--- NOTE | 2019-04-26 13:33 | Cardiology Discharge Summary ---
Diagnosis/Chief Complaint Date of Admission Apr 24, 2019 at 02:37 Date of Discharge 04/26/19 Final/Discharge Diagnosis Chest pain, likely angina Card cath of 04/26/19: 70% mid LAD, 80% bifurcation stenosis in a large OM, 40% mid RCA, LVEDP 10 mmHg, LVEF 60% Acute renal insufficiency, managed by the Hospitalist N[place]u, improving HTN HLD Chronic dysphagia for which he has had recent swallow eval by Dr. 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 Sun Chief Complaint/HPI Chief Complaint/HPI HPI Mr. Mcdonald is an 84 year old man who lives at home with his daughter. He repo rts yesterday he had eaten chili for supper. He then took a nap. He woke up and ate some potato chips then went to bed. He reports around 1:00 in the morning he was awakened with mid-sternal chest pressure which radiated across his chest. He reports the discomfort was constant, rating it an 8 on a 1-10 pain scale. He states he felt some SOB with it, but that did not last. He states after several minutes of the pressure EMS was called. He reports they gave him a nitro sublingual which did resolve the pain after approx 10-15 minutes. He has not had any recurrence. No c/o palpitations, syncope or near syncope. He reports his right foot is frequently cold. He denies any n/v/d. He denies any fever or chills. Please refer to my note of today's date (04/26/19) for condition at discharge. Discharge Summary Discussion & Recommendations Home Medications Reviewed patient Home Medication Reconciliation performed by pharmacy medication reconciliations missile tracking technician and/or nursing. Patients Allergies have been reviewed. Discharge Home Medications: Reviewed and agree with Discharge Medication list on patient's Discharge Instruction sheet Clinical Quality Measures AMI/AHF: ASA po Prior to arrival: Yes ([facility] ROUTE [facility]) DVT/VTE Risk/Contraindication: Risk Factor Score Per Nursin RFS Level Per Nursing on Admit: 2=Moderate SHUBHAM ELLIS MD FACP FAC CCDS Apr 26, 2019 13:33
[2019-04-26 16:10] VITALS: BP 197/84
[2019-04-26] MEDS: hydrALAZINE (APRESOLINE) 25 MG TAB PO PRN (17:03)
== END 2019-04-26 18:45 | disposition designated cancer center or children's hospital (05) ==
LOC: EDUNIT# 00:59 → ER 01:00 → ICU 02:37 → CSD 04-26 13:17
PROVIDERS: ADMIT Internal Medicine; ATTEND Internal Medicine
DX: I25.10 Atherosclerotic heart disease of native coronary artery without angina pectoris (principal); N28.9 Disorder of kidney and ureter, unspecified; I10 Essential (primary) hypertension; E78.5 Hyperlipidemia, unspecified; K59.09 Other constipation; M19.90 Unspecified osteoarthritis, unspecified site; N40.0 Benign prostatic hyperplasia without lower urinary tract symptoms; Z89.512 Acquired absence of left leg below knee; Z88.1 Allergy status to other antibiotic agents; Z88.2 Allergy status to sulfonamides; Z88.8 Allergy status to other drugs, medicaments and biological substances; Z87.891 Personal history of nicotine dependence; Z87.440 Personal history of urinary (tract) infections; Z80.8 Family history of malignant neoplasm of other organs or systems; Z79.82 Long term (current) use of aspirin; Z79.899 Other long term (current) drug therapy; Z79.891 Long term (current) use of opiate analgesic
CPT/HCPCS: 36415; 71045; 78452; 80048; 80053; 80061; 83735; 83874; 84443; 84484; 85025; 85027; 85610; 85730; 93005; 93017; 93041; 93306; 93458; 96374

== ENCOUNTER → 2020-07-25 | Outpatient (CLI) | payer MEDICARE, OTHER ==
[~2020-07-25] MED LIST changes: +ASPI-1238 PO; -ASPI-983 PO; +CYAN500011 PO; -ENAL10TA PO; +ENAL10TA16 PO; +KRIL1CAP31 PO; +MIRA50TA PO; -MISO200T4 PO; +MISO200T66 PO; +MULT-1056 PO; +PSYL0.4C2 PO; +SAW/1TAB2 PO; +TMSL.4C PO; +VIT1CAPS44 PO
--- NOTE | 2020-07-25 14:27 | Diagnostic Imaging Report ---
INDICATION: Kidney stones. COMPARISON: April 27, 2017. TECHNIQUE: Single radiograph of abdomen dated July 25, 2020. FINDINGS: The visualized lung bases are clear. Postsurgical changes with multiple mesh tacks identified overlying the pelvis bilaterally. Chain suture seen overlying the pelvis on the right. Additional postsurgical changes overlying the expected location of the prostate gland. Nonobstructive bowel gas pattern. No free air. No suspicious calcifications overlying the renal shadows, though evaluation is slightly limited secondary to overlying bowel gas and enteric contents. Significant apex right curvature of the visualized thoracolumbar spine with scattered osseous degenerative changes present. No acute osseous abnormality. IMPRESSION: [place] right curvature of the spine with associated moderate multilevel degenerative changes. Postsurgical changes without evidence of bowel obstruction or free air. Dictated by: Dictated on workstation # [id number]
== END ==
LOC: RAD FS 13:45
PROVIDERS: ATTEND Urology
DX: N20.0 Calculus of kidney (principal); M47.815 Spondylosis without myelopathy or radiculopathy, thoracolumbar region
CPT/HCPCS: 74018

== ENCOUNTER → 2021-05-10 | Outpatient (CLI) | payer MEDICARE ==
[~2021-05-10] MED LIST changes: -POTA99TA21 PO; +POTA99TA26 PO; +TOLT2TAB19 PO; -TOLT2TAB5 PO
--- NOTE | 2021-05-10 14:57 | Diagnostic Imaging Report ---
EXAMINATION: Chest 2 view HISTORY: Shortness of breath and cough. COMPARISON: 04/24/2019 FINDINGS: Lungs are hyperinflated. No edema or pneumonia. No pleural effusion or pneumothorax. Heart size is normal. IMPRESSION: 1. Clear lungs. Dictated by: Dictated on workstation # [id number]
== END ==
LOC: RAD 14:31
PROVIDERS: ATTEND Physician Assistant
DX: U07.1 COVID-19 (principal)
CPT/HCPCS: 71046

== ENCOUNTER → 2021-08-14 | Outpatient (CLI) | payer MEDICARE ==
--- NOTE | 2021-08-14 15:37 | Diagnostic Imaging Report ---
Indication: Neck pain. Time of Exam: 2:42 PM There is hyperlordotic curvature to the cervical spine. Generalized cervical spondylosis is noted with variable disc space narrowing and marginal spurring. There is multilevel facet arthropathy. Prevertebral tissues are normal. Odontoid is intact. IMPRESSION: Cervical spondylosis. No acute bony abnormality is detected. Dictated by: Dictated on workstation # [id number]
== END ==
LOC: RAD FS 14:23
PROVIDERS: ATTEND Nurse Practitioner Family
DX: M47.812 Spondylosis without myelopathy or radiculopathy, cervical region (principal)
CPT/HCPCS: 72040

== ENCOUNTER → 2021-08-25 | Outpatient (CLI) | payer MEDICARE ==
--- NOTE | 2021-08-25 11:05 | Diagnostic Imaging Report ---
Indication: Right shoulder pain 3 views of the right shoulder show no fracture, dislocation or other acute abnormalities. IMPRESSION: Negative right shoulder Dictated by: Dictated on workstation # [id number]
--- NOTE | 2021-08-25 11:31 | Diagnostic Imaging Report ---
INDICATION: Cervical pain. COMPARISON: 08/14/2021 TECHNIQUE: 4 radiographs of the cervical spine dated 08/25/2021. FINDINGS: Accentuation of the partially visualized thoracic kyphosis with accentuation of the normal cervical lordosis. No significant anterolisthesis or retrolisthesis. Anterior wedge deformity of T2 is again identified, appearing similar to the prior CT. No additional definite acute compression deformity. Mild multilevel disc space height loss is noted throughout the cervical spine. Advanced facet joint degenerative changes are present. The dens is intact. The lateral masses are well seated. Prevertebral soft tissues are unremarkable. IMPRESSION: No acute osseous abnormality with advanced degenerative changes, chronic anterior wedge deformity within the upper thoracic spine, and accentuation of the normal cervical lordosis. Dictated by: Dictated on workstation # [id number]
== END ==
LOC: RAD FS 10:10
PROVIDERS: ATTEND Family Medicine
DX: M47.812 Spondylosis without myelopathy or radiculopathy, cervical region (principal); M43.8X4 Other specified deforming dorsopathies, thoracic region
CPT/HCPCS: 72040; 73030

== ENCOUNTER → 2022-04-20 | Outpatient (CLI) | payer MEDICARE ==
[~2022-04-20] VITALS: Ht 175 cm; Wt 56.0 kg
[~2022-04-20] MED LIST changes: +CATHETER FLUSH 10 ML SYR IVP PRN; +REGADENOSON 0.4 MG/5 ML SYR (LEXISCAN) IV ONE
[2022-04-20 09:16] VITALS: BP 151/90
== END ==
LOC: CARD 08:15
PROVIDERS: ATTEND Nurse Practitioner Family
DX: I25.10 Atherosclerotic heart disease of native coronary artery without angina pectoris (principal)
CPT/HCPCS: 78452; 93017; A9502

== ENCOUNTER 2022-10-18 12:22 | Emergency (ER) | payer MEDICARE ==
[~2022-10-18] VITALS: Ht 175 cm; Wt 54.4 kg
[~2022-10-18 12:22] MED LIST changes: -CATHETER FLUSH 10 ML SYR IVP PRN; -ENAL10TA16 PO; +ENLP10T PO; -REGADENOSON 0.4 MG/5 ML SYR (LEXISCAN) IV ONE
--- NOTE | 2022-10-18 12:40 | ED Neurological Problem ---
General Chief Complaint: Neurological Problems Stated Complaint: LT HAND NUMBNESS Nursing Triage Note: PT TO RM 9 BY EMS WITH CC OF LT HAND CONTRACTURE AND NUMBNESS THAT STARTED YESTERDAY MORNING, BP HIGH BY EMS BUT 133/93 ON ARRIVAL HERE Source: patient, EMS Exam Limitations: no limitations History of Present Illness Date Seen by Provider: Oct 18, 2022 Time Seen by Provider: 12:23 Allergies and Home Medications Allergies Coded Allergies: Sulfa (Sulfonamide Antibiotics) (Unverified Allergy, Severe, 03/23/17) gluten (Verified Allergy, Intermediate, 03/29/17) history of celiac disease. cephalexin (Verified Adverse Reaction, Severe, NAUSEA/DIARRHEA, 03/23/17) clindamycin (Verified Adverse Reaction, Severe, NAUSEA/DIARRHEA, 03/23/17) Patient Home Medication List Home Medication List Reviewed: Yes Aspirin (Aspirin EC) 81 Mg Tablet.dr, 81 MG PO DAILY, (Reported) Entered as Reported by: HAO DUPREE on 03/21/17 1344 Carboxymethylcellulos/Glycerin (Refresh Optive Gel Eye Drops) 10 Ml Drops.gel, 1 DROP OU TID PRN for DRY EYES, (Reported) Entered as Reported by: HAO DUPREE on 03/21/17 1344 Cefdinir (Cefdinir) 300 Mg Capsule, 300 MG PO BID Prescribed by: ANGEL BARRIOS on 10/18/22 1646 Cyanocobalamin (Vitamin B-12) (Vitamin B-12) 5,000 Mcg Capsule, 5,000 MCG PO BID, (Reported) Entered as Reported by: HAO DUPREE on 04/24/19 0928 Cyclosporine (Restasis) 1 Each Droperette, 1 DROP OU BID, (Reported) Entered as Reported by: HAO DUPREE on 03/21/17 1320 Diclofenac Sodium (Diclofenac Sodium) 75 Mg Tablet.dr, 75 MG PO BID, (Reported) Entered as Reported by: HAO DUPREE on 03/21/17 1344 Enalapril Maleate (Enalapril Maleate) 10 Mg Tablet, 20 MG PO BID, (Reported) Entered as Reported by: HAO DUPREE on 03/21/17 1344 Krill/Om-3/Dha/Epa/Phospho/Ast (Krill Oil 500 mg Softgel) 1 Each Capsule, 500 MG PO BID, (Reported) Entered as Reported by: HAO DUPREE on 04/24/19927 Mirabegron (Myrbetriq) 50 Mg Tab.er.24h, 50 MG PO DAILY, (Reported) Entered as Reported by: HAO DUPREE on 04/24/19936 Misoprostol (Misoprostol) 200 Mcg Tablet, 200 MCG PO BID, (Reported) Entered as Reported by: HAO DUPREE on 03/21/17 134 Multivit-Min/FA/Lycopen/Lutein (Men 50 Plus Multivitamin Tab) 1 Each Tablet, 1 TAB PO DAILY, (Reported) Entered as Reported by: HAO DUPREE on 04/24/19927 Polyethylene Glycol 3350 (Miralax) 17 Gm Powd.pack, 17 GM PO DAILY PRN for CONSTIPATION-2ND LINE, (Reported) Entered as Reported by: HAO DUPREE on 03/21/171343 Potassium Gluconate (Potassium) 99 Mg Tablet, 99 MG PO DAILY, (Reported) Entered as Reported by: HAO DUPREE on 04/24/19927 Psyllium Husk (Metamucil) 0.4 Gm Capsule, 0.4 GM PO DAILY PRN for LOOSE STOOLS, (Reported) Entered as Reported by: HAO DUPREE on 04/24/19927 Saw/Vit E/Sod Alexa/Lyc/Beta/Pyg (Prostate Health Caplet) 1 Each Tablet, 1 TAB PO BID, (Reported) Entered as Reported by: HAO DUPREE on 04/24/19927 Tamsulosin HCl (Flomax) 0.4 Mg Cap, 0.4 MG PO 1730, (Reported) Entered as Reported by: HAO DUPREE on 04/24/19933 Vit C/E/Zn/Coppr/Lutein/Zeaxan (Preservision Areds 2 Softgel) 1 Each Capsule, 1 CAP PO BID, (Reported) Entered as Reported by: HAO DUPREE on 04/24/19927 Past Anfjvyl-Wotdlv-Fwpmpr Hx Patient Social History Tobacco Use?: No Substance use?: No Alcohol Use?: No Seasonal Allergies Seasonal Allergies: No Past Medical History Surgery/Hospitalization HX: BKA LT LOWER EXT, CABG, HERNIA, AMI WITH STENTS Surgeries: Yes Abdominal, Amputation Respiratory: Yes Pneumonia Cardiac: Yes Hypertension Neurological: No Genitourinary: Yes Benign Prostatic Hyperpl, UTI-Chronic Gastrointestinal: Yes (CELIAC DISEASE) Chronic Constipation, Polyps Musculoskeletal: Yes Amputee, Arthritis Endocrine: No HEENT: Yes Loss of Vision: Denies Hearing Impairment: Denies Cancer: No Psychosocial: No Blood Disorders: No Adverse Reaction/Blood Tranf: No Family Medical History Cardiovascular disease G8 BROTHER FH: esophageal cancer 19 MOTHER Oral cancer 19 FATHER No Pertinent Family Hx Physical Exam Vital Signs Vital Signs - First Documented 10/18/22 12:24 Temp 36.8 Pulse 60 Resp 18 B/P (MAP) 133/93 (106) Pulse Ox 99 O2 Delivery Room Air Capillary Refill : Less Than 3 Seconds Height, Weight, BMI Height: 5'9.00" Weight: 140lbs. 0.0oz. 63.085886wr; 17.00 BMI Method:Stated Stroke NIH Stroke Scale Assessment Level of Consciousness: 0=Alert (0), Level of Consciousness-Questions: 0=Answers both month/age (0), LOC Commands: 0=Performs both tasks (0), Visual Rucker: 0=No visual loss (0), Facial Movement (Facial Paresis): 0=Normal symmetrical mnt (0), Motor Function-Arms Right: 0=No drift (0), Motor Function-Arms Left: 0=No drift (0), Motor Function-Legs Right: 0=No drift (0), Motor Function-Legs Left: 0=No drift (0), Limb Ataxia: 1=Present in one limb (1), Sensory: 0=Normal:no loss (0), Best Language: 0=No aphasia (0), Dysarthria: 0=Normal (0), Extinction & Inattention: 0=No abnormality (0), Total: Progress/Results/Core Measures Results/Orders Lab Results Laboratory Tests Test 10/18/22 12:42 10/18/22 12:45 Range/Units Urine Color YELLOW Urine Clarity CLOUDY H Urine pH 7.0 5-9 Urine Specific Ola 1.015 L 1.016-1.022 Urine Protein 1+ H NEGATIVE Urine Glucose (UA) NEGATIVE NEGATIVE Urine Ketones NEGATIVE NEGATIVE Urine Nitrite POSITIVE H NEGATIVE Urine Bilirubin NEGATIVE NEGATIVE Urine Urobilinogen 0.2 < = 1.0 MG/DL Urine Leukocyte Esterase 1+ H NEGATIVE Urine RBC (Auto) TRACE H NEGATIVE Urine RBC 0-2 /HPF Urine WBC 50-100 H /HPF Urine Squamous Epithelial Cells 0-2 /HPF Urine Crystals NONE /LPF Urine Bacteria LARGE H /HPF Urine Casts NONE /LPF Urine Mucus NEGATIVE /LPF Urine Culture Indicated YES White Blood Count 6.5 4.3-11.0 10^3/uL Red Blood Count 3.89 L 4.30-5.52 10^6/uL Hemoglobin 13.0 L 13.3-17.7 g/dL Hematocrit 39 L 40-54 % Mean Corpuscular Volume 101 H 80-99 fL Mean Corpuscular Hemoglobin 33 25-34 pg Mean Corpuscular Hemoglobin Concent 33 32-36 g/dL Red Cell Distribution Width 13.9 10.0-14.5 % Platelet Count 212 130-400 10^3/uL Mean Platelet Volume 10.3 9.0-12.2 fL Immature Granulocyte % (Auto) 0 % Neutrophils (%) (Auto) 69 42-75 % Lymphocytes (%) (Auto) 19 12-44 % Monocytes (%) (Auto) 8 0-12 % Eosinophils (%) (Auto) 3 0-10 % Basophils (%) (Auto) 1 0-10 % Neutrophils # (Auto) 4.5 1.8-7.8 10^3/uL Lymphocytes # (Auto) 1.2 1.0-4.0 10^3/uL Monocytes # (Auto) 0.5 0.0-1.0 10^3/uL Eosinophils # (Auto) 0.2 0.0-0.3 10^3/uL Basophils # (Auto) 0.0 0.0-0.1 10^3/uL Immature Granulocyte # (Auto) 0.0 0.0-0.1 10^3/uL Sodium Level 143 135-145 MMOL/L Potassium Level 4.5 3.6-5.0 MMOL/L Chloride Level 111 H 98-107 MMOL/L Carbon Dioxide Level 23 21-32 MMOL/L Anion Gap 9 5-14 MMOL/L Blood Urea Nitrogen 20 H 7-18 MG/DL Creatinine 1.25 0.60-1.30 MG/DL Estimat Glomerular Filtration Rate 56 BUN/Creatinine Ratio 16 Glucose Level 129 H 70-105 MG/DL Calcium Level 8.6 8.5-10.1 MG/DL Corrected Calcium 9.0 8.5-10.1 MG/DL Magnesium Level 2.1 1.6-2.4 MG/DL Total Bilirubin 0.5 0.1-1.0 MG/DL Aspartate Amino Transf (AST/SGOT) 27 5-34 U/L Alanine Aminotransferase (ALT/SGPT) 16 0-55 U/L Alkaline Phosphatase 111 40-136 U/L Troponin I < 0.028 <0.028 NG/ML Total Protein 6.8 6.4-8.2 GM/DL Albumin 3.5 3.2-4.5 GM/DL My Orders Orders - ANGEL MARIE MD Cbc With Automated Diff (10/18/22 12:33) Comprehensive Metabolic Panel (10/18/22 12:33) Magnesium (10/18/22 12:33) Troponin I Radha (10/18/22 12:33) Ua Culture If Indicated (10/18/22 12:33) Ed Iv/Invasive Line Start (10/18/22 12:33) Ekg Tracing (10/18/22 12:33) Monitor-Rhythm Ecg Trace Only (10/18/22 12:33) Ct Head Wo-R/O Stroke (10/18/22 12:33) Urine Culture (10/18/22 12:42) Mri Brain W/O Contrast (10/18/22 14:19) Mri Cervical Spine W/O Contras (10/18/22 14:19) Ceftriaxone Iv/Im (Ceftriaxone Iv/Im) (10/18/22 15:19) Vital Signs/I&O 10/18/22 10/18/22 12:24 16:59 Temp 36.8 Pulse 60 61 Resp 18 B/P (MAP) 133/93 (106) 160/83 Pulse Ox 99 98 O2 Delivery Room Air Room Air Blood Pressure Mean: 106 Progress Progress Note : Progress Note Pt received by me from EMS. Began triage process until nursing staff available. Initial ECG Impression Date: Oct 18, 2022 Initial ECG Impression Time: 12:42 Initial ECG Rate: 60 Initial ECG Rhythm: Normal Sinus Comment NSR with no ST elevation or depression. PVC's noted. No abnormal intervals. LVH noted. Diagnostic Imaging Diagonstic Imaging: CT Plain Films/CT/US/NM/MRI: head Comments NAME: JOSE SARMIENTO [facility] REC#: [id number] PT STATUS: REG ER : 1935 PHYSICIAN: ANGEL MARIE MD ADMIT DATE: 10/18/22/ER Signed Date of Exam:10/18/22 CT HEAD WO-R/O STROKE EXAMINATION: CT head without contrast. TECHNIQUE: Multiple contiguous axial images were obtained through the brain without the use of intravenous contrast. All CT scans use one or more of the following dose optimizing techniques: automated exposure control, MA and/or KvP adjustment based on patient size and exam type or iterative reconstruction. HISTORY: Left hand numbness. Vision problems. Concern for stroke. COMPARISON: None available. FINDINGS: No large acute territorial ischemia, mass, or hemorrhage. No midline shift or mass effect. Decreased attenuation is seen in the periventricular and subcortical white matter. The ventricles and cortical sulci are prominent. The basilar cisterns are patent and unremarkable. The orbits are normal. Paranasal sinuses are normal. Mastoid air cells are clear. No soft tissue abnormality is seen. No osseus lesions or fractures are seen. IMPRESSION: 1. No large acute territorial ischemia, mass, or hemorrhage. 2. Chronic microvascular disease. 3. Generalized parenchymal volume loss. Dictated by: Dictated on workstation # [id number] Dict: 10/18/22 1324 Trans: 10/18/22 1334 [facility] [id number] Interpreted by: CANDELARIO MANZO DO Electronically signed by: CANDELARIO MANZO DO 10/18/22 1334 Departure Impression Primary Impression: Left hand weakness Additional Impressions: Left hand paresthesia Urinary tract infection Qualified Codes: N39.0 - Urinary tract infection, site not specified Cervical spinal stenosis Neuroforaminal stenosis of cervical spine Diplopia Disposition: 01 HOME, SELF-CARE Condition: Stable Departure-Patient Inst. Decision time for Depature: 16:45 Referrals: DONNA MARTINEZ MD (PCP/Family) Primary Care Physician Patient Instructions: Spinal stenosis, Urinary Tract Infection, Adult ED Add. Discharge Instructions: Drink plenty of clear liquids to stay well-hydrated. Follow-up with your primary care provider later this week to review urine culture results. This will help ensure you are taking the best antibiotic for the infection you have. The exact cause of your arm symptoms is uncertain. It may be related to narrowing of your spinal canal in your neck or at the nerve roots that exit your spine. Follow-up with your primary care provider soon as possible. Further evaluation with studies such as nerve conduction or EEG may be appropriate at your primary care doctor's discretion. Please call tomorrow for an appointment. Also follow-up with your eye doctor as soon as possible. Please call tomorrow for an appointment. Return to care if you have worsening symptoms despite following these instructions. All discharge instructions reviewed with patient and/or family. Voiced understanding. Scripts Cefdinir (Cefdinir) 300 Mg Capsule 300 MG PO BID, #10 CAP 0 Refills Prov: ANGEL MARIE MD 10/18/22 Copy Copies To 1: DONNA MARTINEZ MD Copies To 2: SHUBHAM ELLIS MD [facility] ANGEL MARIE MD Oct 18, 2022 12:40
[2022-10-18 12:54] LABS: BASOPHILS % (AUTO) 1 % (0-10); EOSINOPHILS # (AUTO) 0.2 10^3/uL (0.0-0.3); EOSINOPHILS % (AUTO) 3 % (0-10); HEMATOCRIT 39 % (40-54); LYMPHOCYTES # (AUTO) 1.2 10^3/uL (1.0-4.0); LYMPHOCYTES % (AUTO) 19 % (12-44); MEAN CORPUSCULAR HEMOGLOBIN 33 pg (25-34); MEAN CORPUSCULAR HGB CONC 33 g/dL (32-36); MEAN CORPUSCULAR VOLUME 101 fL (80-99); MEAN PLATELET VOLUME 10.3 fL (9.0-12.2); MONOCYTES # (AUTO) 0.5 10^3/uL (0.0-1.0); MONOCYTES % (AUTO) 8 % (0-12); NEUTROPHILS # (AUTO) 4.5 10^3/uL (1.8-7.8); NEUTROPHILS % (AUTO) 69 % (42-75); PLATELET COUNT 212 10^3/uL (130-400); WHITE BLOOD COUNT 6.5 10^3/uL (4.3-11.0)
[2022-10-18 13:03] LABS: ALBUMIN 3.5 GM/DL (3.2-4.5)
[2022-10-18 13:04] LABS: CHLORIDE 111 MMOL/L (98-107); POTASSIUM 4.5 MMOL/L (3.6-5.0); SODIUM 143 MMOL/L (135-145)
[2022-10-18 13:05] LABS: BILIRUBIN,URINE NEGATIVE (NEGATIVE); CLARITY,URINE CLOUDY; COLOR,URINE YELLOW; GLUCOSE, URINE (UA) NEGATIVE (NEGATIVE); KETONES,URINE NEGATIVE (NEGATIVE); LEUKOCYTE ESTERASE ,URINE 1+ (NEGATIVE); NITRITE,URINE POSITIVE (NEGATIVE); PROTEIN,URINE 1+ (NEGATIVE); RBC,URINE 0-2 /HPF; WBC,URINE 50-100 /HPF
[2022-10-18 13:05] LABS: CALCIUM 8.6 MG/DL (8.5-10.1)
[2022-10-18 13:06] LABS: GLUCOSE 129 MG/DL (70-105); TOTAL PROTEIN 6.8 GM/DL (6.4-8.2)
[2022-10-18 13:06] LABS: BACTERIA,URINE LARGE /HPF; SQUAMOUS EPITHELIAL CELL,UR 0-2 /HPF
[2022-10-18 13:07] LABS: CARBON DIOXIDE 23 MMOL/L (21-32)
[2022-10-18 13:08] LABS: BILIRUBIN,TOTAL 0.5 MG/DL (0.1-1.0)
[2022-10-18 13:09] LABS: ALKALINE PHOSPHATASE 111 U/L (40-136)
[2022-10-18 13:10] LABS: CREATININE SERUM 1.25 MG/DL (0.60-1.30); GFR ESTIMATED 56
[2022-10-18 13:11] LABS: BUN/CREATININE RATIO 16
[2022-10-18 13:13] LABS: ALANINE AMINOTRANSFERASE 16 U/L (0-55); MAGNESIUM 2.1 MG/DL (1.6-2.4)
--- NOTE | 2022-10-18 13:27 | Diagnostic Imaging Report ---
EXAMINATION: CT head without contrast. TECHNIQUE: Multiple contiguous axial images were obtained through the brain without the use of intravenous contrast. All CT scans use one or more of the following dose optimizing techniques: automated exposure control, MA and/or KvP adjustment based on patient size and exam type or iterative reconstruction. HISTORY: Left hand numbness. Vision problems. Concern for stroke. COMPARISON: None available. FINDINGS: No large acute territorial ischemia, mass, or hemorrhage. No midline shift or mass effect. Decreased attenuation is seen in the periventricular and subcortical white matter. The ventricles and cortical sulci are prominent. The basilar cisterns are patent and unremarkable. The orbits are normal. Paranasal sinuses are normal. Mastoid air cells are clear. No soft tissue abnormality is seen. No osseus lesions or fractures are seen. IMPRESSION: 1. No large acute territorial ischemia, mass, or hemorrhage. 2. Chronic microvascular disease. 3. Generalized parenchymal volume loss. Dictated by: Dictated on workstation # [id number]
--- NOTE | 2022-10-18 15:17 | Diagnostic Imaging Report ---
PROCEDURE: MR imaging of the brain without contrast. TECHNIQUE: Multiplanar, multisequence MR imaging of the brain was performed without contrast. INDICATION: Left upper extremity weakness. FINDINGS: Multiplanar MR imaging reveals diffuse volume loss throughout the brain. There is also [id number]-oq-uppubpxc T2 prolongation within the periventricular and deep white matter of both hemispheres. In addition, there are regions of T2 prolongation in the high right frontal and parietal convexities with minimal involvement of the high bilateral occipital lobes. Similar finding is present within the left frontal cortex. These areas do demonstrate restricted diffusion indicating acute ischemic change. There is no abnormal mass effect or shift of midline structures. Paranasal sinuses are unremarkable. There is no evidence of cerebellar stroke. IMPRESSION: Rather advanced chronic white matter findings with multiple focal regions of acute cortical ischemia, most pronounced in the high right frontal and parietal lobes with additional involvement of the occipital and left frontal lobes. There is no evidence of hemorrhage or other acute complication. Dictated by: Dictated on workstation # [id number]
[2022-10-18] MEDS ORDERED: cefTRIAXone IV/IM 1,000 MG in NS (IVPB) 50 ML 50 ML IV STA (15:19)
--- NOTE | 2022-10-18 15:36 | Diagnostic Imaging Report ---
PROCEDURE: MR imaging cervical spine without contrast. TECHNIQUE: Multiplanar, multisequence MR imaging of the cervical spine was performed without contrast. INDICATION: Neck pain. Left hand weakness. COMPARISON: 08/25/2021. FINDINGS: No acute fracture or dislocation is seen in the cervical spine. There is exaggerated lordosis of the cervical spine. The vertebral body heights and disc spaces are well maintained. The bone marrow signal is unremarkable. No focal osseous lesions. The craniocervical junction is maintained. The cervical spinal cord demonstrates normal intrinsic signal. No epidural collections are seen. The included brainstem and posterior fossa have normal appearance. Multilevel degenerative changes are seen in the cervical spine with posterior disc bulges and uncovertebral arthropathy. Motion artifact during the axial sequences limits evaluation of level by level degenerative changes. Within these limitations, there is jaie-cm-bwcvejbq spinal canal stenosis at the C2-C3, C3-C4, and C4-C5 levels. There is high-grade foraminal stenosis bilaterally at these levels as well. The soft tissues of neck are unremarkable. IMPRESSION: 1. No acute fracture or dislocation of the cervical spine. 2. Multilevel degenerative changes in the cervical spine, greatest at C2-C3, C3-C4, and C4-C5. Dictated by: Dictated on workstation # [id number]
[2022-10-18] MEDS ORDERED: CEFD300C3 PO (16:46)
[2022-10-18 16:59] VITALS: BP 160/83
== END 2022-10-18 17:03 | disposition home or self-care (01) ==
LOC: EDUNIT# 12:22 → ER 12:23
DX: R20.2 Paresthesia of skin (principal); R53.1 Weakness; N39.0 Urinary tract infection, site not specified; H53.2 Diplopia; M48.02 Spinal stenosis, cervical region; Z88.2 Allergy status to sulfonamides
CPT/HCPCS: 36415; 70450; 70551; 72141; 80053; 81000; 83735; 84484; 85025; 87077; 87088; 87186; 93005